=== PATIENT | female | born 1940 | race Caucasian/White ===

== ENCOUNTER 2025-03-21 13:00 | Outpatient (AMB) | payer MEDICARE, OTHER, SELFPAY ==
--- OUTSIDE RECORDS SUMMARY | 2025-03-18 20:32 | XMS_ITS | Encounter Summary ---
Author Organization [facility] Address [address] [place] [address] Phone Care Team Providers Care Chart Changer Name Role Phone Fabienne Villasenor CNP Primary Care Provider Reason for Referral * MRI/CAT Scan - Closed Specialty Diagnoses / Procedures Referred By Contac t Referred To Contact Radiology Diagnoses Chronic bilateral low back pain with bilateral sciatica Procedures MRI Lumbar Spine Fabienne Villasenor CNP 14 [facility] [address] [place] [address] Phone: tel: fax: [email or web address] Referral ID Status Reason Start Date Expiration Date Visits Re quested Visits Authorized [id number] Closed 03/11/2025 03/11/2026 1 1 Reason for Visit * MRI/CAT Scan - Closed Specialty Diagnoses / Procedures Referred By Contac t Referred To Contact Radiology Diagnoses Chronic bilateral low back pain with bilateral sciatica Procedures MRI Lumbar Spine Fabienne Villasenor CNP 14 [facility] [address] [place] [address] Phone: tel: fax: [email or web address] Referral ID Status Reason Start Date Expiration Date Visits Re quested Visits Authorized [id number] Closed 03/11/2025 03/11/2026 1 1 Encounter Details Date Type Department Care Team (Latest Contact Info) Description 03/18/2025 8:32 PM EDT - 03/18/2025 11:59 PM EDT Hospital Encounter [facility], [address] [address] Fabienne Villasenor, SOCIAL WORK ASSISTANT [facility] [address] [place] [address] [email or web address] g Arrived Discharge Disposition: Home or Self Care Social History Tobacco Use Types Packs/Day Years Used Date Smoking Tobacco: Former Cigarettes 1 1977 Smokeless Tobacco: Never Alcohol Use Standard Drinks/Week Comments Never 0 (1 standard drink = 0.6 oz pur e alcohol) Education Answer Date Recorded Are you interested in more education? Not on birgit e 09/30/2022 Are you concerned about learning? Not on file 09/30/2022 No 09/30/2022 No 09/30/2022 Food Answer Date Recorded Within the past 6 months we worried whether our food would run out before we got money to buy more. Never True 02/12/2025 Within the past 6 months the food we bought just didn't last and we didn't have enough money to get more. Never True Residential Stability Answer Date Recor ded What is your housing situation today? I have conrado sing 02/12/2025 How many times have you move d in the past 12 months? Zero (I did not move) 02/12/2025 Paying for Meds Answer Date Recorded Do you have trouble paying for medicines? No 02/12/2025 Paying Utility Bills Answer Date Record ed Do you have trouble paying your heating or elect ricity bill? No 02/12/2025 Transportation Answer Date Recorded Has the lack of transportati on kept you from medical appointments or from getting medications? No 02/12/2025 Digital Access Answer Date Recorded No 02/12/2025 Yes 02/12/2025 Do you have reliable internet access at home? Ye s 02/12/2025 Do you have a device (e.g., phone, tablet, computer) with a working camera? Yes 02/12/2025 Intimate Partner Violence Answer Date R ecorded Are you denied basic needs s uch as food, clothing, or medical care? No 02/12/2025 In the past 12 months have y ou been in a relationship with a person who hurts, threatens, or tries to control you? No 02/12/2025 Are you denied basic needs s uch as food, clothing, or medical care? No 02/12/2025 In the past 12 months have y ou been in a relationship with a person who hurts, threatens, or tries to control you? No 02/12/2025 Comments No Sex and Gender Information Value Date Recorded Sex Assigned at Female 07/12/2020 7:30 AM EST Legal Sex Female 3:15 PM EDT Gender Identity Female 07/12/2020 7:30 AM EST Sexual Orientation Not on file documented as of this encounter Medications at Time of Discharge acetaminophen (TYLENOL) 650 MG CR tablet Take 2 tablets by mouth 2 (two) times a day as needed for pain (specific location in comments). amoxicillin (AMOXIL) 500 MG capsule Take 2,000 mg by mouth once as needed (prior to dental procedure). atorvastatin (LIPITOR) 20 MG tabletIndications: Pure hypercholesterolem ia, unspecified TAKE 1 TABLET BY MOUTH EVERY DAY 90 tablet 1 02/11/2025 cephalexin (KEFLEX) 500 MG capsule Take 1 capsule (500 mg total) by mouth 2 (two) times a day for 5 days. 10 capsule 03/21/2025 cholecalciferol (VITAMIN D3) 2,000 unit capsule Take 2,000 Units by mouth every other day. lidocaine (LIDODERM) 5 %Indications:Chron ic bilateral thoracic back pain Place 1 patch onto the skin daily. Remove & Discard patch within 12 hours or as directed by 30 patch 02/18/2025 losartan-hydroCHLO ROthiazide (HYZAAR) 50-12.5 mg per tabletIndications: Essential hypertension Take 1 tablet in the morning and 1/2 tablet in the evening 180 tablet 3 06/12/2024 pantoprazole (PROTONIX) 40 MG tabletIndications: Gastroesophageal reflux disease TAKE 1 TABLET BY MOUTH EVERY DAY 90 tablet 1 02/11/2025 documented as of this encounter Plan of Treatment Upcoming Encounters Date Type Department Care Team (Loc araiza Contact Info) Description 04/09/2025 3:20 PM EST Office Visit [facility] [place] [facility] 14 [facility] [address] [place] [address] Fabienne Villasenor, SOCIAL WORK ASSISTANT [facility] [address] [place] [address] [email or web address] documented as of this encounter Procedures Procedure Name Priority Date/Time Associated Diagnosis Comments MRI LUMBAR SPINE (NEURO) WITHOUT CONTRAST Routine 03/18/2025 9:23 PM EDT Chronic bilateral low back pain with bilateral sciatica documented in this encounter Results * MRI LUMBAR SPINE (NEURO) WITHOUT CONTRAST (03/18/2025 9:23 PM EDT) Anatomical Region Laterality Modality L-spine Magnetic Resonan ce 03/20/2025 3:07 PM EDT Impressions 03/20/2025 3:20 PM EDT 1. Extensive degenerative disc disease and facet joint arthropathy at multiple levels, with canal stenosis, moderate at multiple levels, as discussed above. 2. Multilevel foramina stenosis, severe at multiple levels, as above. 3. Probable renal cysts. Narrative 03/20/2025 3:20 PM EDT MRI LUMBAR SPINE (NEURO) WITHOUT CONTRAST Referring clinician's provided indication for this examination in Epic: * Low back pain, > 6 wks; Chronic low back pain with bilateral sciatica. Hx of lumbar laminectomy in 2019. Chronic saddle anesthesia TECHNIQUE: MRI LUMBAR SPINE (NEURO) WITHOUT CONTRAST Multi-sequence, multi-planar MRI of the lumbar spine was performed without intravenous contrast. COMPARISON: Lumbar spine MRI June 09, 2021. FINDINGS: LUMBAR SPINE: Alignment and Vertebrae: There is straightening of the lumbar lordosis, stable. No compression fracture. Marrow: The bone marrow signal is heterogeneous. No worrisome marrow replacing lesion. Discs and Endplates: Loss of disc height and signal at every level from L1-L2 through L5-S1, most severe at L3-L4. There are Modic type II endplate changes at L3-L4, unchanged. There are also Modic type II endplate changes at L4-L5, also stable. Conus: The tip of the conus ends at L1. No compression. Soft Tissues: No prevertebral edema. Other Findings: Possibly small cyst in the left upper renal pole measuring 6 mm, not completely characterized in this exam. Additional T2 hyperintensity or possibly cyst on the right kidney measuring 1 cm. There is also cyst in the left kidney lower pole measuring 2.2 cm. Findings by level: T11-T12: Mild disc bulge. Mild spinal canal stenosis. No high-grade foraminal stenosis. T12-L1: Disc bulge and facet joint arthropathy. No high-grade spinal canal stenosis or significant foraminal stenosis. L1-L2: Disc bulge, lateralizing toward the right, right subarticular component, stable from previous exam. Facet hypertrophy. Mild to moderate spinal canal stenosis. Moderate right and lgqq-eb-cjyigjtz left foraminal stenosis. L2-L3: Disc bulge. Left central/subarticular disc protrusion. Additional right subarticular extrusion with mild cranial migration. Facet hypertrophy. Moderate spinal canal stenosis. Moderate left and mild to moderate right foraminal stenosis. L3-L4: Disc bulge. Left subarticular zone annulus fissure protrusion with osteophytic ridging. Facet hypertrophy. Moderate spinal canal stenosis. Moderate left and mild right foraminal stenosis. L4-L5: Disc osteophyte complex, lateralizing toward the right. Facet hypertrophy. Severe stenosis of the right subarticular zone with compression of the right transversing L5 nerve roots. Moderate spinal canal stenosis. Severe right and moderate left foraminal stenosis. L5-S1: Disc osteophyte complex. Central/right central disc fusion. There is severe encroachment of the subarticular zones and S1 nerve roots. Mild to moderate spinal canal stenosis. Severe bilateral foraminal stenosis. Procedure Note Hannah Villagomez MD - 03/20/2025 MRI LUMBAR SPINE (NEURO) WITHOUT CONTRAST Referring clinician's provided indication for this examination in Epic: *Low back pain, > 6 wks; Chronic low back pain with bilateral sciatica. Hxof lumbar laminectomy in 2019. Chronic saddle anesthesia TECHNIQUE: MRI LUMBAR SPINE (NEURO) WITHOUT CONTRAST Multi-sequence, multi-planar MRI of the lumbar spine was performed withoutintravenous contrast. COMPARISON: Lumbar spine MRI June 09, 2021. FINDINGS: LUMBAR SPINE: Alignment and Vertebrae: There is straightening of the lumbar lordosis,stable. No compression fracture. Marrow: The bone marrow signal is heterogeneous. No worrisome marrowreplacing lesion. Discs and Endplates: Loss of disc height and signal at every level fromL1-L2 through L5-S1, most severe at L3-L4. There are Modic type IIendplate changes at L3-L4, unchanged. There are also Modic type IIendplate changes at L4-L5, also stable. Conus: The tip of the conus ends at L1. No compression. Soft Tissues: No prevertebral edema. Other Findings: Possibly small cyst in the left upper renal pole measuring6 mm, not completely characterized in this exam. Additional [id number] or possibly cyst on the right kidney measuring 1 cm. Thereis also cyst in the left kidney lower pole measuring 2.2 cm. Findings by level: T11-T12: Mild disc bulge. Mild spinal canal stenosis. No high-gradeforaminal stenosis. T12-L1: Disc bulge and facet joint arthropathy. No high-grade spinal canalstenosis or significant foraminal stenosis. L1-L2: Disc bulge, lateralizing toward the right, right subarticularcomponent, stable from previous exam. Facet hypertrophy. Mild to moderatespinal canal stenosis. Moderate right and msan-uc-trglozgu left foraminalstenosis. L2-L3: Disc bulge. Left central/subarticular disc protrusion. Additionalright subarticular extrusion with mild cranial migration. Facethypertrophy. Moderate spinal canal stenosis. Moderate left and mild tomoderate right foraminal stenosis. L3-L4: Disc bulge. Left subarticular zone annulus fissure protrusion withosteophytic ridging. Facet hypertrophy. Moderate spinal canal stenosis.Moderate left and mild right foraminal stenosis. L4-L5: Disc osteophyte complex, lateralizing toward the right. Facethypertrophy. Severe stenosis of the right subarticular zone withcompression of the right transversing L5 nerve roots. Moderate spinalcanal stenosis. Severe right and moderate left foraminal stenosis. L5-S1: Disc osteophyte complex. Central/right central disc fusion. Thereis severe encroachment of the subarticular zones and S1 nerve roots. Mildto moderate spinal canal stenosis. Severe bilateral foraminal stenosis. IMPRESSION: 1. Extensive degenerative disc disease and facet joint arthropathy atmultiple levels, with canal stenosis, moderate at multiple levels, asdiscussed above. 2. Multilevel foramina stenosis, severe at multiple levels, as above. 3. Probable renal cysts. Fabienne Villasenor SOCIAL WORK ASSISTANT G MR XSPECIALTY Caron l Result documented in this encounter Visit Diagnoses Diagnosis Chronic bilateral low back pain with bilateral sciatica documented in this encounter Additional Health Concerns Assessment Noted Time PHQ-2 Depression Total Score: 0 07/03/19 25 1:10 PM EST documented as of this encounter Care Teams Chart Changer Relationship Specialty Start Date End Date Fabienne Villasenor CNP [address] [place] [id number] [email or web address] PCP - General Internal Medicine 10/16/18 documented as of this encounter Additional Source Comments The information contained in this document represents components of the legal health record. It is not the complete legal health record.[facility]
--- NOTE | 2025-03-21 13:03 | A.SPINEOV_ITS ---
Vital Signs 03/21/25 13:09 Height 5 ft 2 in Weight 167 lb BMI 30.5 Intake Visit Reasons: low back pain Intake Note: Ms. Fuller is here today c/o Low back pain. Alarm Field Technician Required: No Allergies Sulfa (Sulfonamide Antibiotics) Allergy (Unknown, Verified 03/21/25 13:11) Hallucinations Narcotics Allergy (Severe, Uncoded 03/21/25 13:11) Hallucinations Physical Exam Vital Signs: BMI result Body Mass Index 30.5 Assessment & Plan Assessment & Plan (1) Lumbar stenosis: Code(s): M48.061 - Spinal stenosis, lumbar region without neurogenic claudication Category: Medical Plan This is an 84-year-old female known to us from our previous practice at [facility] where she had a thoracic laminectomy for spinal cord compression and what I believe was a cyst we found at the time, who presents now with an altogether different issue. Earlier this year she slipped on ice and fell. She sustained a few injuries at that time, but 1 thing that is been persistently plaguing her has been a right-sided low back pain that goes into her right buttock, right sacral area and that will radiate down the back of her leg. She has a hard time localizing exactly which dermatomes. She will get tingling on the outer aspect of her foot on the right. She will get intermittent periods of footdrop as well. The pain is particularly bad if she is sitting for any length of time, she can not get comfortable. She will try to get up and move around, but it still will be uncomfortable. She is constantly changing positions. To this point she has had no dedicated conservative treatment other than tincture of time and Tylenol. She has done physical therapy on her back many times in the past with very limited success. She is not that all interested in going back and doing that again. No injections at this point yet either. She comes in today with an MRI done at [facility] showing severe nerve comp ression on the right at L4-5 and L5-S1. PMH: Patient reports history of GERD, high cholesterol, hypertension, left shoulder surgery, thoracic laminectomy, section, left hip replacement. Denies any significant cardiovascular disease, coagulopathies, strokes, liver or kidney disease etc.. Social hx: She has not smoke, drink use any recreational drugs Medications: Lipitor, pantoprazole, losartan, vitamin D3, Tylenol Allergies: Please see the CriticalBlue list Physical exam: Patient is uncomfortable, has an antalgic gait, mild weakness of her right tibialis which I would rate as 4-5. She has a well healed scar in her thoracic area. Reflexes absent at the patella bilaterally and the Achilles on the right Imaging review: Lumbar MRI done at [facility] reveals d egenerative scoliosis, she has a significantly overgrown right L4-5 facet complex with disc osteophyte causing severe narrowing of the right lateral recess, at L5-S1 she has broad-based disc bulge causing severe right L5 foraminal stenosis and right S1 compression in the lateral recess Impression: 84-year-old female known to us from our previous practice for thoracic laminectomy, presents now with a posttraumatic pain that is in her right side of her low back, right sacral area, right buttock area radiating down the back of her leg with intermittent tingling on the right side of her outer fo ot. The patient unfortunately has had no improvement over the last 6 or 7 months since the fall happened. She has been trying to wait this out, using Tylenol etc.. She has gone through physical therapy in the past for her back without any significant improvement, and she is very reluctant to put herself through that again out of fear that it will cause more pain like it has in the past. She can not take anti-inflammatories because of GI issues. The patient has severe compression on the right L4-5 and right L5-S1 lateral recess in addition to the right L5 foramen. I think that this is where her symptoms are coming from, especially in light of the intermittent footdrop that she is getting and the weakness I am seeing on exam in the tibialis region. I offered her the option of a cortisone shot as a means of trying to avoid surgery, but she is not all that interested in it. She would just like to get the problem fixed if we believe it is something that we can operate on. I think Dr. Mc would offer her decompression of these areas. I will review the films with him and get back to her with a final plan. We did briefly discuss what a lumbar decompression would be in terms of surgery risks, recovery and success rates etc.. Thank you for allowing us to care for your patient. The total time spent with this visit with this patient was 45 minutes reviewing history, physical exam, lumbar imaging review, and implementation of treatment plan or further diagnostic testing Pratik Mc MD,PhD [facility] Coding Level of Care Code New Pt Level 4 (12524) Diagnoses Lumbar stenosis M48.061
[2025-03-21 13:09] VITALS: BMI 30.5
--- OUTSIDE RECORDS SUMMARY | 2025-03-21 15:35 | XMS_ITS | Encounter Summary ---
Author Organization [facility] Address [address] [place] [address] Phone Care Team Providers Care Bell Captain Name Role Phone Fabienne Villasenor CNP Primary Care Provider Jasper Fairchild MD Unavailable [phone] Encounter Details Date Type Department Care Team ([facility] Contact Info) Description 04/29/2019 Procedure [facility], [facility] [address] [place] [address] Social History Tobacco Use Types Packs/Day Years Used Date Smoking Tobacco: Former Cigarettes Q uit: 1978 Smokeless Tobacco: Never Alcohol Use Standard Drinks/Week Comments Never 0 (1 standard drink = 0.6 oz pur e alcohol) Comments Unknown Sex and Gender Information Value Date Recorded Sex Assigned at Female 07/12/2020 7:30 AM EST Legal Sex Female 3:15 PM EDT Gender Identity Female 07/12/2020 7:30 AM EST Sexual Orientation Not on file documented as of this encounter Last Filed Vital Signs Vital Sign Reading Time Taken Comments Blood Pressure - - Pulse - - Temperature - - Respiratory Rate - - Oxygen Saturation - - Inhaled Oxygen Concentration - - Weight 73.9 kg (163 lb) 04/30/2019 12:51 PM EST Height 157.5 cm (5' 2 ) 04/30/2019 12:51 PM EST Body Mass Index 29.81 04/30/2019 12:51 PM EST documented in this encounter Plan of Treatment Upcoming Encounters Date Type Department Care Team ([facility] Contact Info) Description 04/09/2025 3:20 PM EST Office Visit [facility] [place] [facility] 14 [facility] [address] [place] [address] Fabienne Villasenor CNP 14 [facility] [address] [place] [address] [email or web address] documented as of this encounter Visit Diagnoses Not on filedocumented in this encounter Additional Health Concerns Infection Onset Date Last Indicated Resolved Time CoV-Exposed Comment:Recent close contact documented in the COVID-19 PCR/PRO order 03/05/2022 03/15/2022 03/16/2022 1:22 AM E DT CoV-Risk Comment:Per Ambulatory Triage Form 03/15/2022 03/16/202203/27 1:21 AM EDT CoV-Exposed Comment:Recent close contact documented in the COVID-19 Amb Triage Form 12/04/2023 12/08/2023 12/25/2023 1:21 AM E DT CoV-Risk Comment:Per Ambulatory Triage Form 12/08/2023 12/08/202312/18 1:22 AM EDT documented as of this encounter Care Teams Bell Captain Relationship Specialty Start Date End Date Fabienne Villasenor CNP [address] [address] PCP - General Internal Medicine 10/16/18 Jasper Fairchild MD [address] [address] Insurance Assigned Provider 09/09/23 06/10/24 documented as of this encounter Additional Source Comments The information contained in this document represents components of the legal health record. It is not the complete legal health record.[facility]
--- OUTSIDE RECORDS SUMMARY | 2025-03-21 15:35 | XMS_ITS | Encounter Summary ---
Author Organization [facility] Address [address] [place] [address] [place] [address] Phone Care Team Providers Care Product Support Sales Representative Name Role Phone Fabienne Villasenor CNP Primary Care Provider Jasper Fairchild MD Unavailable [phone] Encounter Details Date Type Department Care Team (Late Contact Info) Description 08/04/2021 Ancillary Orders [facility],Outside Imaging [address] [place] [address] System, Provider Not In, [place] [address] Social History Tobacco Use Types Packs/Day Years Used Date Smoking Tobacco: Former Cigarettes 1 20 859 - 3106 Smokeless Tobacco: Never Alcohol Use Standard Drinks/Week Comments Never 0 (1 standard drink = 0.6 oz pur e alcohol) Comments No Sex and Gender Information Value Date Recorded Sex Assigned at Female 07/12/2020 7:30 AM EST Legal Sex Female 3:15 PM EDT Gender Identity Female 07/12/2020 7:30 AM EST Sexual Orientation Not on file documented as of this encounter Plan of Treatment Upcoming Encounters Date Type Department Care Team (Late Contact Info) Description 04/09/2025 3:20 PM EST Office Visit [facility] Internal Medicine 14 [facility] [address] [place], [place] [phone] Fabienne Villasenor CNP 14 [facility] [address] [place] [address] [email or web address] documented as of this encounter Results * MRI Spine (Bone) Outside (No Interpretation) (07/30/2017 12:00 AM EST) Narrative SYSTEMGENERATED, DOCUMENTATION - 08/04/2021 6:52 AM EST This study is for PACS storage only and not for interpretation. us Provider Not In System PhD IMG OUTSIDE IMAGING W /OUT INTERPRETATION Final Result documented in this encounter Visit Diagnoses Not on filedocumented [...] Triage Form 12/08/2023 12/08/202312/18 1:22 AM EDT Assessment Noted Time PHQ-2 Depression Total Score: 0 06/16/19 1:01 PM EST documented as of this encounter Care Teams Product Support Sales Representative Relationship Specialty Start Date End Date Fabienne Villasenor CNP [address] [place] [address] [place] [address] [email or web address] PCP - General Internal Medicine 10/16/18 Jasper Fairchild MD [address] [place] [address] [place] [address] [email or web address] Insurance Assigned Provider 09/09/23 06/10/24 documented as of this encounter Additional Source Comments The information contained in this document represents components of the legal health record. It is not the complete legal health record.[facility]
--- OUTSIDE RECORDS SUMMARY | 2025-03-21 15:35 | XMS_ITS | Encounter Summary ---
Author Organization [facility] Address [address] [place] [address] Phone Care Team Providers Care Mold Preparer Name Role Phone Fabienne Villasenor CNP Primary Care Provider Jasper Fairchild MD Unavailable [phone] Encounter Details Date Type Department Care Team (Latest Contact Info) Description 07/23/2020 Transcribe Orders Virtual Department [address] [place] [address] Terrell Mccall MD [address] [place] [address], [place] [address] [email or web address] Malignant neoplasm of urinary bladder, unspecified site (Primary Dx) Social History Tobacco Use Types Packs/Day Years Used Date Smoking Tobacco: Former Cigarettes 1 24 06 475 - 3313 Smokeless Tobacco: Never Alcohol Use Standard Drinks/Week [...] Encounters Date Type Department Care Team (Late st Contact Info) Description 04/09/2025 3:20 PM EST Office Visit [facility] Internal Medicine 14 [facility] [address] [place] [address] Jacklyn Fabienne Carmichael, SHEETING PULLER 14 [facility] [address] [place] [address] [email or web address] documented as of this encounter Results * US Kidneys (07/27/2020 9:39 AM EST) Anatomical Region Laterality Modality Abdomen, Kidney Ultrasound 07/27/2020 9:36 AM EST Impressions 07/27/2020 9:46 AM EST No evidence of metastatic disease or hydronephrosis. Narrative 07/27/2020 9:46 AM EST COMPARISON: None. RENAL ULTRASOUND FINDINGS: Right Kidney: measures 11 x 5 cm. No hydronephrosis, masses or calculi. Cortical echogenicity and thickness are normal. No perinephric fluid collections. Left Kidney: measures 10 x 5 cm. No hydronephrosis, masses or calculi. Cortical echogenicity and thickness are normal. No perinephric fluid collections. Procedure Note Lino Atkinson MD - 07/27/2020 COMPARISON: None. RENAL ULTRASOUND FINDINGS: Right Kidney: measures 11 x 5 cm. No hydronephrosis, masses or calculi.Cortical echogenicity and thickness are normal. No perinephric fluidcollections. Left Kidney: measures 10 x 5 cm. No hydronephrosis, masses or calculi.Cortical echogenicity and thickness are normal. No perinephric fluidcollections. IMPRESSION: No evidence of metastatic disease or hydronephrosis. Terrell Mccall MD [facility] RENAL Final Result documented in this encounter Visit Diagnoses Diagnosis Malignant neoplasm of urinary bladder, unspecified site- Primary Malignant neoplasm of urinary bladder, unspecified site documented in this encounter Additional Health Concerns Infection [...] documented as of this encounter Care Teams Mold Preparer Relationship Specialty Start Date End Date Fabienne Villasenor CNP 14 [facility] [address] [place] [address] [email or web address] PCP - General Internal Medicine 10/16/18 Jasper Fairchild MD 14 [facility] [address] [place] [address] [email or web address] Insurance Assigned Provider 09/09/23 06/10/24 documented as of this encounter Additional Source Comments The information contained in this document represents components of the legal health record. It is not the complete legal health record.[facility]
--- OUTSIDE RECORDS SUMMARY | 2025-03-21 15:35 | XMS_ITS | Encounter Summary ---
Author Organization [facility] Address [address] [place] [address] Phone Care Team Providers Care Dairy Consultant Name Role Phone Fabienne Villasenor CNP Primary Care Provider Jasper Fairchild MD Unavailable [phone] Encounter Details Date Type Department Care Team (Late Contact Info) Description 07/02/2022 Ancillary Orders [facility] Internal Medicine [address] [address] Fabienne Villasenor CNP [address] [address] [email or web address] Bilateral hip pain Social History Tobacco Use Types Packs/Day Years Used Date Smoking Tobacco: Former Cigarettes 1 24 06 058 - 9344 Smokeless Tobacco: Never Alcohol Use Standard Drinks/Week [...] Upcoming Encounters Date Type Department Care Team ([facility] Contact Info) Description 04/09/2025 3:20 PM EST Office Visit [facility] Internal Medicine 14 [facility] [address] [place] [address] Fabienne Villasenor, PHOTO LAB SPECIALIST 14 [facility] [address] [place] [address] [email or web address] documented as of this encounter Results * XR HIPS 2+ VW EA BILAT PLUS PELVIS (07/02/2022 11:15 AM EST) Anatomical Region Laterality Modality Hip, Pelvis Computed Radiogr aphy 07/02/2022 11:5 1 PM EST Impressions 07/02/2022 11:54 PM EST Moderate left hip osteoarthritis, progressed from 2020. Mild to moderate right hip joint space narrowing, similar to 2020. Narrative 07/02/2022 11:54 PM EST XR HIPS 2+ VW EA BILAT PLUS PELVIS, XR SACROILIAC JOINTS 3 OR MORE VIEWS COMPARISON: XR HIP 2 VW LEFT PLUS PELVIS ; CT ABDOMEN/PELVIS WITH CONTRAST (accession [id number]), XR HIP 2 VW LEFT PLUS PELVIS (accession [id number]) FINDINGS: PELVIS: Pelvic ring intact. No displaced fracture. Degenerative changes in the lower lumbar spine, sacroiliac joints, and pubic symphysis. Constipation. Dedicated views of the sacroiliac joints reveal mild bony proliferative change on the left. No convincing osseous erosions RIGHT HIP: Mild to moderate right hip joint space narrowing, particularly medially and posteriorly. LEFT HIP: Moderate joint space narrowing with subchondral sclerosis and bony proliferative change. Procedure Note Teodora Gonzalez MD - 07/02/2022 XR HIPS 2+ VW EA BILAT PLUS PELVIS, XR SACROILIAC JOINTS 3 OR MORE VIEWS COMPARISON: XR HIP 2 VW LEFT PLUS PELVIS ; CT ABDOMEN/PELVISWITH CONTRAST (accession [id number]), XR HIP 2 VW LEFT PLUSPELVIS (accession [id number]) FINDINGS: PELVIS: Pelvic ring intact. No displaced fracture. Degenerative changes inthe lower lumbar spine, sacroiliac joints, and pubic symphysis.Constipation. Dedicated views of the sacroiliac joints reveal mild bonyproliferative change on the left. No convincing osseous erosions RIGHT HIP: Mild to moderate right hip joint space narrowing, particularlymedially and posteriorly. LEFT HIP: Moderate joint space narrowing with subchondral sclerosis andbony proliferative change. IMPRESSION: Moderate left hip osteoarthritis, progressed from 2020. Mild to moderate right hip joint space narrowing, similar to 2020. Fabienne Villasenor PHOTO LAB SPECIALIST IMG XR PELVIS Final Result documented in this encounter Visit Diagnoses Diagnosis Bilateral hip pain Pain in joint, pelvic region and thigh Bilateral hip pain Pain in joint, pelvic region and thigh documented in this encounter Additional Health Concerns Infection Onset Date Last Indicated Resolved Time CoV-Exposed Comment:Recent close contact documented in the COVID-19 Amb Triage Form 12/04/2023 12/08/2023 12/25/2023 1:21 AM E DT CoV-Risk Comment:Per Ambulatory Triage Form 12/08/2023 12/08/202312/18 1:22 AM EDT Assessment Noted Time PHQ-2 Depression Total Score: 0 06/19/19 23 4:39 PM EST documented as of this encounter Care Teams Dairy Consultant Relationship Specialty Start Date End Date Fabienne Villasenor, ANTONIO [address] [place] [address] [place] [address] PCP - General Internal Medicine 10/16/18 Jasper Fairchild MD [address] [place] [address] [place] [address] Insurance Assigned Provider 09/09/23 06/10/24 documented as of this encounter Additional Source Comments The information contained in this document represents components of the legal health record. It is not the complete legal health record.[facility]
--- OUTSIDE RECORDS SUMMARY | 2025-03-21 15:35 | XMS_ITS | Encounter Summary ---
Author Organization [facility] Address [address] [place] [address] [place] [address] Phone Care Team Providers Care Installation Technician Name Role Phone Fabienne Villasenor ANTONIO Primary Care Provider Encounter Details Date Type Department Care Team ([facility] st Contact Info) Description 03/11/2025 Procedure Pass [facility], [facility] [place] [address] [place] [address] Social History Tobacco Use Types Packs/Day Years Used Date Smoking Tobacco: Former Cigarettes 1 24 06 [id number] Smokeless Tobacco: Never Alcohol Use Standard Drinks/Week [...] 04/09/2025 3:20 PM EST Office Visit [facility] Internal Medicine 14 [facility] [address] [place] [address] Fabienne Villasenor CNP 14 [facility] [address] [place] [address] documented as of this encounter Visit Diagnoses Not on filedocumented in this encounter Additional Health Concerns Assessment Noted Time PHQ-2 Depression Total Score: 0 07/03/19 25 1:10 PM EST documented as of this encounter Care Teams Installation Technician Relationship Specialty Start Date End Date Fabienne Villasenor CNP [address] [place] [address] [address] [place] [address] [email or web address] PCP - General Internal Medicine 10/16/18 documented as of this encounter Additional Source Comments The information contained in this document represents components of the legal health record. It is not the complete legal health record.[facility]
--- OUTSIDE RECORDS SUMMARY | 2025-03-21 15:35 | XMS_ITS | Encounter Summary ---
Author Organization [facility] Address [address] [place] [address] Phone Care Team Providers Care Integration Manager Name Role Phone Fabienne Villasenor CNP Primary Care Provider Jasper Fairchild MD Unavailable [phone] Reason for Referral * MRI/CAT Scan - Closed Specialty Diagnoses / Procedures Referred By Roberta du Referred To Contact Radiology Diagnoses Sprain of left ankle, unspecified ligament, initial encounter Procedures MRI Ankle (Left) Bairon Trevino DO [email or web address] Referral ID Status Reason Start Date Expiration Date Visits Re quested Visits Authorized [id number] Closed 04/29/2019 04/28/2020 1 1 Encounter Details Date Type Department Care Team (Latest Contact Info) Description 04/29/2019 Transcribe Orders Virtual Department 30 [place] [address] Bairon Trevino DO [email or web address] Sprain of left ankle, unspecified ligament, initial encounter (Primary Dx) Social History Tobacco Use Types Packs/Day Years Used Date Smoking Tobacco: Former Cigarettes Q uit: 1977 Smokeless Tobacco: Never Alcohol Use Standard [...] Description 04/09/2025 3:20 PM EST Office Visit [facility] Internal Medicine 14 [facility] [address] [place] [address] Fabienne Villasenor, DIRECTOR OF RECREATION THERAPY 14 [facility] [address] [place] [address] documented as of this encounter Results * MRI ANKLE WITHOUT CONTRAST (LEFT) (05/12/2019 8:42 AM EST) Anatomical Region Laterality Modality Ankle Left Magnetic Resonan ce 05/12/2019 3:32 PM EST Impressions 05/12/2019 3:58 PM EST Mild edema surrounding the peroneal tendons and focal thickening and abnormal signal in the peroneus longus distally suggesting partial intrasubstance tear. No other ankle pathology is apparent. POS - [id number] Narrative 05/12/2019 3:58 PM EST TECHNIQUE: Exam performed on a 1.5 Yanely high-field MRI scanner. Axial T1, T2 and STIR; coronal proton density with fat suppression, sagittal T1 and STIR sequences were obtained. No comparison FINDINGS: No marrow edema to suggest bony trauma, tumor or infection. The mortise is not widened. The major ligaments seem intact to the extent they can be visualized. There is focal edema around the peroneus longus and brevis tendons peripheral to the lateral malleolus and the peroneal longus tendon appears to thicken with internal fraying or splitting as it rounds the undersurface of the calcaneus suggesting partial tearing. The peroneus brevis tendon seems intact as do the anterior, posterior and medial tendons. No soft tissue masses or fluid collections. Procedure Note Odilon Nelson MD - 05/12/2019 TECHNIQUE: Exam performed on a 1.5 Yanely high-field MRI scanner. AxialT1, T2 and STIR; coronal proton density with fat suppression, sagittal T1and STIR sequences were obtained. No comparison FINDINGS: No marrow edema to suggest bony trauma, tumor or infection. The mortise is not widened. The major ligaments seem intact to the extent they can be visualized. There is focal edema around the peroneus longus and brevis tendonsperipheral to the lateral malleolus and the peroneal longus tendon appearsto thicken with internal fraying or splitting as it rounds theundersurface of the calcaneus suggesting partial tearing. The peroneus brevis tendon seems intact as do the anterior, posterior andmedial tendons. No soft tissue masses or fluid collections. IMPRESSION: Mild edema surrounding the peroneal tendons and focal thickening andabnormal signal in the peroneus longus distally suggesting partialintrasubstance tear. No other ankle pathology is apparent. POS - [id number] Bairon Trevino DO IM MR EXTREMITY Caron l Result documented in this encounter Visit Diagnoses Diagnosis Sprain of left ankle, unspecified ligament, initial encounter- Primary Sprain of left ankle, unspecified ligament, initial encounter documented in this encounter Additional Health Concerns [...] documented as of this encounter Care Teams Integration Manager Relationship Specialty Start Date End Date Fabienne Villasenor CNP [address] [place] [address] [email or web address] PCP - General Internal Medicine 10/16/18 Jasper Fairchild MD [address] [place] [address] [address] [place] [address] [email or web address] Insurance Assigned Provider 09/09/23 06/10/24 documented as of this encounter Additional Source Comments The information contained in this document represents components of the legal health record. It is not the complete legal health record.[facility]
--- OUTSIDE RECORDS SUMMARY | 2025-03-21 15:35 | XMS_ITS | Encounter Summary ---
Author Organization [facility] Address [address] [place] [address] [place] [address] Phone Care Team Providers Care Administrative Hearing Officer Name Role Phone Fabienne Villasenor CNP Primary Care Provider Jasper Fairchild MD Unavailable [phone] Encounter Details Date Type Department Care Team (Late Contact Info) Description 05/21/2021 Procedure Pass [facility], [address] [address] Social History Tobacco Use Types Packs/Day Years Used Date Smoking Tobacco: Former Cigarettes 1 24 06 879 1977 Smokeless Tobacco: Never Alcohol Use Standard [...] Description 04/09/2025 3:20 PM EST Office Visit [facility] Internal Medicine 14 [facility] [address] [place], [place] [phone] Fabienne Villasenor CNP 14 [facility] [address] [place], [place] [phone] documented as of this encounter Visit Diagnoses [...] documented as of this encounter Care Teams Administrative Hearing Officer Relationship Specialty Start Date End Date Fabienne Villasenor CNP 14 [facility] [address] [place] [address] [email or web address] PCP - General Internal Medicine 10/16/18 Jasper Fairchild MD 14 [facility] [address] [place] [address] [email or web address] Insurance Assigned Provider 09/09/23 06/10/24 documented as of this encounter Additional Source Comments The information contained in this document represents components of the legal health record. It is not the complete legal health record.[facility]
--- OUTSIDE RECORDS SUMMARY | 2025-03-21 15:35 | XMS_ITS | Encounter Summary ---
Author Organization [facility] Address [address] [place] [address] Phone Care Team Providers Care Benefits Specialist Recruiter Name Role Phone Fabienne Villasenor CNP Primary Care Provider Jasper Fairchild MD Unavailable [phone] Reason for Referral * MRI/CAT Scan - Closed Specialty Diagnoses / Procedures Referred By Contac t Referred To Contact Radiology Diagnoses Neck stiffness Weakness Tingling Procedures MRI Cervical Spine Bairon Trevino DO [email or web address] Referral ID Status Reason Start Date Expiration Date Visits Re quested Visits Authorized [id number] Closed 07/18/2019 07/17/2020 1 1 * MRI/CAT Scan - Closed Specialty Diagnoses / Procedures Referred By Contac t Referred To Contact Radiology Diagnoses Tendonosis Procedures MRI Shoulder (Right) Bairon Trevino DO [email or web address] Referral ID Status Reason Start Date Expiration Date Visits Re quested Visits Authorized [id number] Closed 07/18/2019 07/17/2020 1 1 Encounter Details Date Type Department Care Team (Latest Contact Info) Description 07/18/2019 Transcribe Orders [facility] Department [address] [place] [address] Bairon Trevino DO [email or web address] Tingling (Primary Dx); Tendonosis; Neck stiffness; Weakness Social History Tobacco Use Types Packs/Day Years [...] Description 04/09/2025 3:20 PM EST Office Visit [facility] [place] [facility] 14 [facility] [address] [place] [address] Fabienne Villasenor, SUPERVISOR [employer] 14 [facility] [address] [place] [address] [email or web address] documented as of this encounter Results * MRI SHOULDER WITHOUT CONTRAST (RIGHT) (07/27/2019 12:50 PM EST) Anatomical Region Laterality Modality Shoulder Right Magnetic Resonan ce 07/27/2019 9:10 PM EST Impressions 07/29/2019 10:27 AM EST 1. Moderate tendinopathy of the supraspinatus tendon with focal full-thickness tear. 2. Moderate tendinopathy of the infraspinatus with linear intrasubstance tears. 3. Moderate tendinopathy of the intra-articular portion of the biceps tendon with superimposed partial tear. 4. 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 POS - [id number] Narrative 07/29/2019 10:27 AM EST EXAM: MRI SHOULDER WITHOUT CONTRAST (RIGHT) COMPARISON: None TECHNIQUE: Exam performed on a 1.5 Yanely high-field MRI scanner. Axial T1 and proton density with fat suppression, oblique coronal proton density with fat suppression and T2 with fat suppression, oblique sagittal T1 and T2 with fat suppression sequences were obtained. MRI SHOULDER FINDINGS: Motion degrades some of the images. ROTATOR cuff: -Supraspinatus: Decreased bulk . Moderate tendinopathy of the supraspinatus tendon with focal full-thickness tear near the attachment (sagittal 7:13). -Infraspinatus: Normal in bulk. Moderate tendinopathy and at least two foci of linear intrasubstance tears (7:14, 7:15). -Teres minor: Normal in bulk. No tendinopathy. -Subscapularis: Normal in bulk. Moderate tendinopathy. Long head of Biceps tendon: Moderate tendinopathy of the intra-articular portion of the biceps tendon, with superimposed partial tear (coronal 5:7, 5:6). The tendon is located in the bicipital groove. 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 The undersurface of the acromion is flat. Mild impingement in the subjacent supraspinatus tendon. Subacromial subdeltoid bursa: There is small amount of fluid in the subacromial subdeltoid bursa. Glenohumeral joint: The joint articulation is preserved. Thinning of the articular cartilage and narrowing of the joint space. Glenoid labrum: Deformity of the labrum suggestive of chronic tear.. Bones and soft tissues: No marrow edema to suggest fractures. Overlying soft tissues are unremarkable. Procedure Note Yassine Castillo MD - 07/29/2019 EXAM: MRI SHOULDER WITHOUT CONTRAST (RIGHT) COMPARISON: None TECHNIQUE: Exam performed on a 1.5 Yanely high-field MRI scanner. Axial T1and proton density with fat suppression, oblique coronal proton densitywith fat suppression and T2 with fat suppression, oblique sagittal T1 andT2 with fat suppression sequences were obtained. MRI SHOULDER FINDINGS: Motion degrades some of the images. ROTATOR cuff: -Supraspinatus: Decreased bulk . Moderate tendinopathy of thesupraspinatus tendon with focal full-thickness tear near the attachment(sagittal 7:13). -Infraspinatus: Normal in bulk. Moderate tendinopathy and at least twofoci of linear intrasubstance tears (7:14, 7:15). -Teres minor: Normal in bulk. No tendinopathy. -Subscapularis: Normal in bulk. Moderate tendinopathy. Long head of Biceps tendon: Moderate tendinopathy of the intra-articularportion of the biceps tendon, with superimposed partial tear (coronal 5:7,5:6). The tendon is located in the bicipital groove. Acromioclavicular joint: Moderate osteoarthritis involving theacromioclavicular joint with subchondral cystic changes, mild edema aroundthe joint space and marginal osteophytes. The undersurface of the acromionis flat. Mild impingement in the subjacent supraspinatus tendon. Subacromial subdeltoid bursa: There is small amount of fluid in thesubacromial subdeltoid bursa. Glenohumeral joint: The joint articulation is preserved. Thinning of thearticular cartilage and narrowing of the joint space. Glenoid labrum: Deformity of the labrum suggestive of chronic tear.. Bones and soft tissues: No marrow edema to suggest fractures. Overlyingsoft tissues are unremarkable. IMPRESSION: 1. Moderate tendinopathy of the supraspinatus tendon with focalfull-thickness tear. 2. Moderate tendinopathy of the infraspinatus with linear intrasubstancetears. 3. Moderate tendinopathy of the intra-articular portion of the bicepstendon with superimposed partial tear. 4. Moderate osteoarthritic changes of the acromioclavicular jointcontributes to impingement over the subjacent supraspinatus tendon. POS - [id number] us Bairon Trevino DO IMG MR EXTREMITY Caron l Result * MRI CERVICAL SPINE (BONE) WITHOUT CONTRAST (07/27/2019 12:27 PM EST) Anatomical Region Laterality Modality C-spine Magnetic Resonan ce 07/27/2019 7:38 PM EST Impressions 07/27/2019 7:50 PM EST Multilevel degenerative changes as described above. Moderate canal stenosis at C5-C6 and C6-C7. Moderate neuroforaminal stenosis bilaterally at C3-C4, C4-C5, C5-C6 and C6-C7. POS - [id number] Narrative 07/27/2019 7:50 PM EST EXAM: MRI CERVICAL SPINE (BONE) WITHOUT INTRAVENOUS CONTRAST COMPARISON: None TECHNIQUE: Exam performed on a 1.5 Yanely high-field MRI scanner. Sagittal T1, T2 and STIR, axial T2* gradient echo and 3-D bright fluid sequences were obtained. HISTORY: NECK STIFFNESS, WEAKNESS , TINGLING , CLICKING, AROM ROTATION B/L ARMS L>R FINDINGS: ALIGNMENT: Reversal of the normal cervical lordosis. No anterior or posterior subluxations. VERTEBRAL BODIES: Vertebral body heights are maintained. Bone marrow signal pattern is within normal limits. INTERVERTEBRAL DISCS: Normal height and signal intensity. POSTERIOR FOSSA/SPINAL CORD: Posterior fossa structures are unremarkable. Cervicomedullary junction is within normal limits. Included spinal cord has normal caliber and signal characteristics. Short pedicles contribute to neuroforaminal narrowing of the cervical spine. Level by level analysis yields the following: C2-C3: No significant canal stenosis. Mild bilateral neuroforaminal narrowing. C3-C4: Facet arthropathy contributes to moderate bilateral neuroforaminal stenosis, worse on the right side. Mild canal stenosis. C4-C5: Facet arthropathy contributes to moderate bilateral neuroforaminal stenosis. Mild/moderate canal stenosis. C5-C6: Disc osteophyte complex and facet arthropathy contributes to moderate canal stenosis and moderate bilateral neuroforaminal stenosis. C6-C7: Disc osteophyte complex and facet arthropathy contributes to moderate bilateral neuroforaminal stenosis and moderate canal stenosis. C7-T1: No significant canal or neuroforaminal stenosis. OTHERS:Prevertebral and posterior paraspinal soft tissues are unremarkable. Procedure Note Yassine Castillo MD - 07/27/2019 EXAM: MRI CERVICAL SPINE (BONE) WITHOUT INTRAVENOUS CONTRAST COMPARISON: None TECHNIQUE: Exam performed on a 1.5 Yanely high-field MRI scanner.Sagittal T1, T2 and STIR, axial T2* gradient echo and 3-D bright fluidsequences were obtained. HISTORY: NECK STIFFNESS, WEAKNESS , TINGLING , CLICKING, AROM ROTATION B/LARMS L>R FINDINGS: ALIGNMENT: Reversal of the normal cervical lordosis. No anterior orposterior subluxations. VERTEBRAL BODIES: Vertebral body heights are maintained. Bone marrowsignal pattern is within normal limits. INTERVERTEBRAL DISCS: Normal height and signal intensity. POSTERIOR FOSSA/SPINAL CORD: Posterior fossa structures are unremarkable.Cervicomedullary junction is within normal limits. Included spinal cordhas normal caliber and signal characteristics. Short pedicles contribute to neuroforaminal narrowing of the cervicalspine. Level by level analysis yields the following: C2-C3: No significant canal stenosis. Mild bilateral neuroforaminalnarrowing. C3-C4: Facet arthropathy contributes to moderate bilateral neuroforaminalstenosis, worse on the right side. Mild canal stenosis. C4-C5: Facet arthropathy contributes to moderate bilateral neuroforaminalstenosis. Mild/moderate canal stenosis. C5-C6: Disc osteophyte complex and facet arthropathy contributes tomoderate canal stenosis and moderate bilateral neuroforaminal stenosis. C6-C7: Disc osteophyte complex and facet arthropathy contributes tomoderate bilateral neuroforaminal stenosis and moderate canal stenosis. C7-T1: No significant canal or neuroforaminal stenosis. OTHERS:Prevertebral and posterior paraspinal soft tissues areunremarkable. IMPRESSION: Multilevel degenerative changes as described above. Moderate canalstenosis at C5-C6 and C6-C7. Moderate neuroforaminal stenosis bilaterallyat C3-C4, C4-C5, C5-C6 and C6-C7. POS - [id number] Bairon Trevino DO [facility] MR XSPECIALTY Fin al Result documented in this encounter Visit Diagnoses Diagnosis Tingling- Primary Disturbance of skin sensation Tendonosis Neck stiffness Torticollis, unspecified Weakness Other malaise and fatigue Neck stiffness Torticollis, unspecified Weakness Other malaise and fatigue Tingling Disturbance of skin sensation Tendonosis documented in this encounter Additional Health Concerns [...] documented as of this encounter Care Teams Benefits Specialist Recruiter Relationship Specialty Start Date End Date Fabienne Villasenor CNP 14 [facility] [address] [place] [address] [email or web address] PCP - General Internal Medicine 10/16/18 Jasper Fairchild MD 14 [facility] [address] [place] [address] [email or web address] Insurance Assigned Provider 09/09/23 06/10/24 documented as of this encounter Additional Source Comments The information contained in this document represents components of the legal health record. It is not the complete legal health record.[facility]
--- OUTSIDE RECORDS SUMMARY | 2025-03-21 15:35 | XMS_ITS | Encounter Summary ---
Author Organization [facility] Address [address] [place] [address] Phone Care Team Providers Care Barrel Rifler Operator Name Role Phone Fabienne Villasenor CNP Primary Care Provider Jasper Fairchild MD Unavailable [phone] Encounter Details Date Type Department Care Team (Late Contact Info) Description 07/16/2021 Procedure Pass [facility], [address] [address] Social History Tobacco Use Types Packs/Day Years [...] Description 04/09/2025 3:20 PM EST Office Visit [facility] Internal Medicine 14 [facility] [address] [place], [place] [phone] Fabienne Villasenor CNP 14 [facility] [address] [place], [place] [phone] documented as of this encounter Visit Diagnoses [...] documented as of this encounter Care Teams Barrel Rifler Operator Relationship Specialty Start Date End Date Fabienne Villasenor CNP [address] [place] [address] [place] [address] [email or web address] PCP - General Internal Medicine 10/16/18 Jasper Fairchild MD [address] [place] [address] [place] [address] Insurance Assigned Provider 09/09/23 06/10/24 documented as of this encounter Additional Source Comments The information contained in this document represents components of the legal health record. It is not the complete legal health record.[facility]
--- OUTSIDE RECORDS SUMMARY | 2025-03-21 15:35 | XMS_ITS | Encounter Summary ---
Author Organization [facility] Address [address] [place] [address] Phone Care Team Providers Care Weigher And Mixer Name Role Phone Fabienne Villasenor CNP Primary Care Provider Jasper Fairchild MD Unavailable [phone] Encounter Details Date Type Department Care Team (Late Contact Info) Description 07/29/2020 Procedure Pass [place] Admitting Dept - Virtual Department [address] [place] [address] Social History Tobacco Use Types Packs/Day Years Used Date Smoking Tobacco: Former Cigarettes 1 24 06 [id number] Smokeless Tobacco: Never Alcohol Use Standard Drinks/Week [...] 04/09/2025 3:20 PM EST Office Visit [facility] [place] [facility] 14 [facility] [address] [place], [place] [phone] Fabienne Villasenor CNP 14 [facility] [address] [place] [address] documented as of this encounter Visit Diagnoses [...] documented as of this encounter Care Teams Weigher And Mixer Relationship Specialty Start Date End Date Fabienne Villasenor CNP 14 [facility] [address] [place] [address] [email or web address] PCP - General Internal Medicine 10/16/18 Jasper Fairchild MD 14 [facility] [address] [place] [address] [email or web address] Insurance Assigned Provider 09/09/23 06/10/24 documented as of this encounter Additional Source Comments The information contained in this document represents components of the legal health record. It is not the complete legal health record.[facility]
--- OUTSIDE RECORDS SUMMARY | 2025-03-21 15:35 | XMS_ITS | Encounter Summary ---
Author Organization [facility] Address [address] [place] [address] [place] [address] Phone Care Team Providers Care Contact Officer Name Role Phone Fabienne Villasenor CNP Primary Care Provider Jasper Fairchild MD Unavailable [phone] Encounter Details Date Type Department Care Team (Late Contact Info) Description 04/08/2020 Ancillary Orders [facility],Outside Imaging [address] [place] [address] System, Provider Not In, [place] [address] Social History Tobacco Use Types Packs/Day Years Used Date Smoking Tobacco: Former Cigarettes 1 20 497 - 6109 Smokeless Tobacco: Never Alcohol Use Standard Drinks/Week [...] Description 04/09/2025 3:20 PM EST Office Visit [facility] Internal Medicine 14 [facility] [address] [place], [place] [phone] Fabienne Villasenor CNP 14 [facility] [address] [place], [place] [phone] [email or web address] documented as of this encounter Results * Mammogram Outside (No Interpretation) (08/01/2017 12:00 AM EST) Narrative SYSTEMGENERATED, DOCUMENTATION - 04/08/2020 12:34 PM EST This study is for PACS storage [...] documented as of this encounter Care Teams Contact Officer Relationship Specialty Start Date End Date Fabienne Villasenor CNP [address] [place] [address] [address] [place] [address] [email or web address] PCP - General Internal Medicine 10/16/18 Jasper Fairchild MD [address] [place] [address] [address] [place] [address] Insurance Assigned Provider 09/09/23 06/10/24 documented as of this encounter Additional Source Comments The information contained in this document represents components of the legal health record. It is not the complete legal health record.[facility]
--- OUTSIDE RECORDS SUMMARY | 2025-03-21 15:35 | XMS_ITS | Encounter Summary ---
Author Organization [facility] Address [address] [facility] [address] [place] [address] Phone Care Team Providers Care Software Engineering Supervisor Name Role Phone Fabienne Villasenor CNP Primary Care Provider Jasper Fairchild MD Unavailable [phone] Reason for Referral * MRI/CAT Scan - Closed Specialty Diagnoses / Procedures Referred By Contac t Referred To Contact Radiology Diagnoses Mid back pain History of spinal cord compression Procedures MRI Thoracic Spine Lawrence Mc MD Phone: tel: fax: Referral ID Status Reason Start Date Expiration Date Visits Re quested Visits Authorized [id number] Closed 07/16/2021 07/16/2022 1 1 Encounter Details Date Type Department Care Team (Late st Contact Info) Description 07/16/2021 Transcribe Orders Virtual Department [address] [place] [address] Lawrence Mc MD [address] [facility] [address] [place] [address] Mid back pain (Primary Dx); History of spinal cord compression Social History Tobacco Use Types Packs/Day Years Used Date Smoking Tobacco: Former Cigarettes 1 20 1 9 - 1977 Smokeless Tobacco: Never Alcohol Use Standard [...] Description 04/09/2025 3:20 PM EST Office Visit [facility] Internal Medicine 14 [facility] [address] [place] [address] PheFabienne simeon, OFFICE SERVICES COORDINATOR 14 [facility] [address] [place] [address] [email or web address] documented as of this encounter Results * MRI THORACIC SPINE (BONE) WITH AND WITHOUT CONTRAST (08/06/2021 12:01 PM EST) Anatomical Region Laterality Modality T-spine Magnetic Resonan ce 08/06/2021 12:2 7 PM EST Impressions 08/06/2021 1:01 PM EST 1.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 2.No abnormal cord enhancement. 3.Previously suggested calcified lesion at T10-T11 is no longer seen, however, local degenerative changes contributes to moderate spinal canal stenosis. 4.No severe foraminal or spinal canal stenosis. Narrative 08/06/2021 1:01 PM EST MRI THORACIC SPINE (BONE) WITH AND WITHOUT CONTRAST TECHNIQUE: Multi-sequence, multi-planar MRI of the thoracic spine was performed with and without intravenous contrast. Skin marker placed in the area of the patient's surgical scar. COMPARISON: Previous thoracic spine MRI on June 10, 2014 FINDINGS: THORACIC SPINE: Alignment and Vertebrae: Normal alignment. No compression fracture. Marrow: Focal degenerative endplate changes at T8-T9, similar to 2015 Discs and Endplates: Desiccation changes of all discs. No significant loss of disc height. Spinal Cord: Focal spinal cord atrophy associated with abnormal T2 signal at T10-T11. Contrast: No abnormal enhancement. Soft Tissue: No prevertebral edema. Focal postsurgical changes at T9-T11 posterior paraspinal soft tissues. Other Findings: Central disc protrusion at T7-T8 is minimally more prominent than 2015. Mild central disc protrusion at T8-T9, similar to 2015. Mild bulging disc and prominent bilateral facet arthropathy at T9-T10 contributes to mild spinal canal stenosis, similar to 2015. Minimal bulging disc at T10-T11 and prominent facet arthropathy (note that the previously suggested calcified lesion seen 2014 is no longer well seen) contributes to moderate spinal canal stenosis and mild bilateral foraminal stenosis. Procedure Note Yassine Castillo MD - 08/06/2021 MRI THORACIC SPINE (BONE) WITH AND WITHOUT CONTRAST TECHNIQUE: Multi-sequence, multi-planar MRI of the thoracic spine was performed withand without intravenous contrast. Skin marker placed in the area of thepatient's surgical scar. COMPARISON: Previous thoracic spine MRI on June 10, 2014 FINDINGS: THORACIC SPINE: Alignment and Vertebrae: Normal alignment. No compression fracture. Marrow: Focal degenerative endplate changes at T8-T9, similar to 2015 Discs and Endplates: Desiccation changes of all discs. No significant lossof disc height. Spinal Cord: Focal spinal cord atrophy associated with abnormal T2 signalat T10- T11. Contrast: No abnormal enhancement. Soft Tissue: No prevertebral edema. Focal postsurgical changes at T9- [id number] paraspinal soft tissues. Other Findings: Central disc protrusion at T7-T8 is minimally moreprominent than 2015. Mild central disc protrusion at T8-T9, similar [id number]. Mild bulging disc and prominent bilateral facet arthropathy atT9-T10 contributes to mild spinal canal stenosis, similar to 2015. Minimalbulging disc at T10-T11 and prominent facet arthropathy (note that thepreviously suggested calcified lesion seen 2014 is no longer well seen)contributes to moderate spinal canal stenosis and mild bilateral foraminalstenosis. 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 2.No abnormal cord enhancement. 3.Previously suggested calcified lesion at T10-T11 is no longer seen,however, local degenerative changes contributes to moderate spinal canalstenosis. 4.No severe foraminal or spinal canal stenosis. Lawrence Mc MD IMG MR XSPECIALTY Final R esult documented in this encounter Visit Diagnoses Diagnosis Mid back pain- Primary History of spinal cord compression Mid back pain History of spinal cord compression documented in this encounter Additional Health Concerns [...] documented as of this encounter Care Teams Software Engineering Supervisor Relationship Specialty Start Date End Date Fabienne Villasenor CNP [address] [place] [address] [place] [address] [email or web address] PCP - General Internal Medicine 10/16/18 Jasper Fairchild MD [address] [place] [address] [place] [address] Insurance Assigned Provider 09/09/23 06/10/24 documented as of this encounter Additional Source Comments The information contained in this document represents components of the legal health record. It is not the complete legal health record.[facility]
--- OUTSIDE RECORDS SUMMARY | 2025-03-21 15:35 | XMS_ITS | Encounter Summary ---
Author Organization [facility] Address [address] [place] [address] Phone Care Team Providers Care Link Trainer Operator Name Role Phone Fabienne Gottlieb CNP Primary Care Provider Reason for Referral * MRI/CAT Scan - Closed Specialty Diagnoses / Procedures Referred By Roberta du Referred To Contact Radiology Diagnoses Chronic bilateral low back pain with bilateral sciatica Procedures MRI Lumbar Spine Fabienne Gottlieb CNP 14 [facility] [address] [place] [address] Phone: tel: fax: [email or web address] Referral ID Status Reason Start Date Expiration Date Visits Re quested Visits Authorized [id number] Closed 03/11/2025 03/11/2026 1 1 Reason for Visit * Reason Onset Date Comments imaging request 03/10/2025 Encounter Details Date Type Department Care Team ([facility] st Contact Info) Description 03/10/2025 Telephone [facility] 14 [facility] [address] [place], [place] [phone] Fabienne Gottlieb CNP [address] [facility] [address] [place] [address] [email or web address] imaging request Social History Tobacco Use Types Packs/Day Years Used Date Smoking Tobacco: Former Cigarettes 1 20 1 959 1977 Smokeless Tobacco: Never Alcohol Use Standard [...] on file documented as of this encounter Progress Notes * Berna Jones RN - 03/21/2025 12:49 PM EDT Call made to patient to review No answer Left detailed message with prescription information Advised to call the office with any questions or concerns * Fabienne Gottlieb CNP - 03/21/2025 12:46 PM EDTAddended by: FABIENNE GOTTLIEB on: 03/21/2025 12:46 PM Modules accepted: Orders * Fabienne Gottlieb CNP - 03/21/2025 12:46 PM EDT Okay to treat presumptively for UTI. Rx for Keflex 500 mg BID x 5 days sent for patient. Thank you * Berna Jones RN - 03/21/2025 9:25 AM EDT Call made to patient to review Results reviewed She is agreeable to plan She is seeing Dr. Mc at 130 pm She is picking up the MRI disc on her way there Report faxed to [phone] She states that she feels she has a UTI She did 2 home tests and both came back with the deepest purple you can have She is having dysuria, urinary frequency and urgency Feels some irritation as well Will review with Fabienne Gottlieb * Fabienne Gottlieb CNP - 03/21/2025 8:59 AM EDT Please call patient and let her know that imaging results show a lot of degenerative changes through the lumbar spine as well as some spinal stenosis (narrowing of the central spine) that is likely resulting in nerve pinching at a few levels. We will forward results to Dr. Mc and she can reach out for appointment. Thanks. * Susi Guy RN - 03/12/2025 8:36 AM EDT Call made to Ceci. Left detailed message about MRI lumbar spine. Provided number to call and schedule. Advised to call with any questions. * Fabienne Gottlieb CNP - 03/11/2025 7:11 PM EDTAddended by: FABIENNE GOTTLIEB on: 03/11/2025 07:11 PM Modules accepted: Orders * Fabienne Gottlieb CNP - 03/11/2025 7:07 PM EDT Okay, we have discussed her back pain many times in the past. Her last MRI was in 2021, which showed chronic multilevel disc disease, central and foraminal stenosis very slightly worse at L5-S1 on right as compared to previous imaging, but overall stable. Order placed for lumbar MRI. Thanks. * Radha Tavera - 03/11/2025 4:27 PM EDT Ceci lm on the triage line to f/u on if a decision was made on a mri order. Please advise. CSS Agent (Please do not reply to this user, as this inbox is not monitored. Thank you.) Thank you. * Susi Guy RN - 03/11/2025 9:33 AM EDT Call made to Ceci. She would like to get back in to see Dr Mc, [place]. They told her they wont schedule her until she has an MRI ordered. They did the surgery on her back 4 years ago. She would like to stay with them. Since the fall over the winter her back pain has only seemed to be worse. They told her she is not a candidate for any more surgery. They could do shots. Years ago they did the epidural and that didn't work. They told her there are other options. Te lidocaine patches didn't work. Its hard to walk. Hard to stand for any length of time. Thought it was the hip at first. Realizes now its her Lower back. Low back pain that radiates to her right hip. Would like to get the MRI scheduled. Will review with provider. * Sissy Valle - 03/11/2025 9:28 AM EDT Pt returned call. Central Support Restaurant Service Manager (Please do not reply to this user; this inbox is not monitored.) Thank you. * Susi Guy RN - 03/10/2025 12:10 PM EDT Call made to Ceci. No answer. Left message to call back. * Radha Tavera - 03/10/2025 9:54 AM EDT PT lm on the triage line requesting a MRI for lower back. States she is going to see again due to the pain and patch not helping. Also requesting a xray. Advised that their office is requesting this. Please advise. CSS Agent (Please do not reply to this user, as this inbox is not monitored. Thank you.) Thank you. documented in this encounter Plan of Treatment Upcoming Encounters Date Type Department Care Team (Late st Contact Info) Description 04/09/2025 3:20 PM EST Office Visit [facility] 14 [facility] [address] [place] [address] Fabienne Gottlieb, SHIP WASHER 14 [facility] [address] [place] [address] [email or web address] documented as of this encounter Results * MRI LUMBAR SPINE [...] moderate spinal canal stenosis. Moderate right and abna-nv-oasxglth left foraminal stenosis. L2-L3: Disc bulge. Left [...] not completely characterized in this exam. Additional B4ybzbsowzsohzwu or possibly cyst on the right kidney [...] to moderatespinal canal stenosis. Moderate right and jefn-oh-cgwunqtw left foraminalstenosis. L2-L3: Disc bulge. Left central/subarticular [...] as above. 3. Probable renal cysts. Fabienne Gottlieb SHIP WASHER IMG MR XSPECIALTY Caron l Result documented in this encounter Visit Diagnoses Diagnosis Chronic bilateral low back pain with bilateral sciatica- Primary Chronic bilateral low back pain with bilateral sciatica documented in this encounter Additional Health Concerns Assessment Noted Time PHQ-2 Depression Total Score: 0 07/03/19 25 1:10 PM EST documented as of this encounter Care Teams Link Trainer Operator Relationship Specialty Start Date End Date Fabienne Gottlieb CNP [address] [place] [address] [email or web address] PCP - General Internal Medicine 10/16/18 documented as of this encounter Additional Source Comments The information contained in this document represents components of the legal health record. It is not the complete legal health record.[facility]
--- OUTSIDE RECORDS SUMMARY | 2025-03-21 15:36 | XMS_ITS | Encounter Summary ---
Author Organization [facility] Address [address] [place] [address] Phone Care Team Providers Care Channel Account Manager Name Role Phone Fabienne Villasenor CNP Primary Care Provider Jasper Fairchild MD Unavailable [phone] Encounter Details Date Type Department Care Team (Late Contact Info) Description 07/18/2019 Procedure Pass [facility], [address] [address] Social History Tobacco Use Types Packs/Day Years [...] Description 04/09/2025 3:20 PM EST Office Visit [facility] Internal Medicine 14 [facility] [address] [place], [place] [phone] Fabienne Villasenor, ANTONIO 14 [facility] [address] [place] [address] documented as of this encounter Visit Diagnoses [...] documented as of this encounter Care Teams Channel Account Manager Relationship Specialty Start Date End Date Fabienne Villasenor CNP 14 [facility] [address] [place] [address] [email or web address] PCP - General Internal Medicine 10/16/18 Jasper Fairchild MD 14 [facility] [address] [place] [address] [email or web address] Insurance Assigned Provider 09/09/23 06/10/24 documented as of this encounter Additional Source Comments The information contained in this document represents components of the legal health record. It is not the complete legal health record.[facility]
--- OUTSIDE RECORDS SUMMARY | 2025-03-21 15:36 | XMS_ITS | Encounter Summary ---
Author Organization [facility] Address [address] [facility] [address] [place] [address] Phone Care Team Providers Care Service Tester Name Role Phone Fabienne Villasenor CNP Primary Care Provider Jasper Fairchild MD Unavailable [phone] Reason for Referral * MRI/CAT Scan - Closed Specialty Diagnoses / Procedures Referred By Contac t Referred To Contact Radiology Diagnoses Low back pain, unspecified back pain laterality, unspecified chronicity, unspecified whether sciatica present Procedures MRI Lumbar Spine Lawrence Mc MD Phone: tel: fax: Referral ID Status Reason Start Date Expiration Date Visits Re quested Visits Authorized [id number] Closed 08/13/2019 08/12/2020 1 1 Encounter Details Date Type Department Care Team (Late st Contact Info) Description 08/13/2019 Transcribe Orders Virtual Department [address] [place] [address] Lawrence Mc MD 10 [facility] [address] [place] [address] Low back pain, unspecified back pain laterality, unspecified chronicity, unspecified whether sciatica present (Primary Dx) Social History Tobacco Use Types [...] Description 04/09/2025 3:20 PM EST Office Visit [facility] [facility] 14 [facility] [address] [place] [address] Fabienne Villasenor, TELEPHONE INTERCEPTOR OPERATOR 14 [facility] [address] [place] [address] [email or web address] documented as of this encounter Results * MRI LUMBAR SPINE (NEURO) WITHOUT CONTRAST (12/07/2019 2:08 PM EDT) Anatomical Region Laterality Modality L-spine Magnetic Resonan ce 12/07/2019 1:55 PM EDT Impressions 12/07/2019 2:31 PM EDT New small L1-2 disc protrusion, progressive moderate L2-3 canal stenosis due to facet arthropathy, mildly progressive L4-5 disc bulging with mild mass-effect upon the right L5 nerve root, mild increase in size of the small L5-S1 central disc protrusion and progressive moderate left neural foraminal stenosis at L2-3. No large disc herniation or severe canal stenosis. Findings as above. Narrative 12/07/2019 2:31 PM EDT HISTORY: 79-year-old female with low back pain. COMPARISON: 06/09/2015. TECHNIQUE: Exam performed on a 1.5 Yanely high-field MRI scanner. Sagittal T1, T2 and STIR, axial T1 and T2 sequences were obtained. MRI LUMBAR SPINE FINDINGS: Stable straightening of the spine, severe L5-4 and L4-5 and moderate L5-S1 disc space narrowing, multilevel endplate osteophytes and degenerative endplate fibrofatty marrow signal changes from L3-4 and L5-S1. No compression fractures. Chronic small incidental L1 vertebral body hemangiomas. No destructive bone lesions. Conus terminates at T12-L1. Paraspinal soft tissues are normal. Additional findings: Chronic bilateral renal parapelvic and cortical cysts. No incidental findings of concern. T11-12: Disc bulging and mild facet arthropathy. T12-L1: Stable disc bulging and mild facet arthropathy. L1-2: New small broad-based right paracentral disc protrusion. Stable generalized disc bulge, facet arthropathy and ligamentum flavum hypertrophy. L2-L3: Stable generalized disc bulging. Mildly progressive severe facet arthropathy with progressive moderate canal stenosis. Stable ligamentum flavum hypertrophy. Progressive moderate left neural foraminal stenosis and stable mild right neural foraminal stenosis. L3-L4: Stable broad-based disc osteophyte complex, mild right and moderate left facet arthropathy, ligamentum flavum hypertrophy and moderate canal stenosis. Stable mild right and moderate left neural foraminal stenosis. L4-L5: Mildly progressive disc bulging the right paracentral region causing mild mass-effect upon right L5 nerve root. Otherwise stable disc osteophyte complex, mild facet arthropathy, ligamentum flavum hypertrophy and mild canal stenosis. Stable moderate right and mild left neural foraminal stenosis. L5-S1: Increase in size of the small central disc protrusion. Stable mild facet arthropathy and ligamentum plate hypertrophy. Stable severe bilateral neural foraminal stenosis. Procedure Note Lino Atkinson MD - 12/07/2019 HISTORY: 79-year-old female with low back pain. COMPARISON: 06/09/2015. TECHNIQUE: Exam performed on a 1.5 Yanely high-field MRI scanner. SagittalT1, T2 and STIR, axial T1 and T2 sequences were obtained. MRI LUMBAR SPINE FINDINGS: Stable straightening of the spine, severe L5-4 and L4-5 and moderate L5-S1disc space narrowing, multilevel endplate osteophytes and degenerativeendplate fibrofatty marrow signal changes from L3-4 and L5-S1. Nocompression fractures. Chronic small incidental L1 vertebral bodyhemangiomas. No destructive bone lesions. Conus terminates at T12-L1.Paraspinal soft tissues are normal. Additional findings: Chronic bilateral renal parapelvic and corticalcysts. No incidental findings of concern. T11-12: Disc bulging and mild facet arthropathy. T12-L1: Stable disc bulging and mild facet arthropathy. L1-2: New small broad-based right paracentral disc protrusion. Stablegeneralized disc bulge, facet arthropathy and ligamentum flavumhypertrophy. L2-L3: Stable generalized disc bulging. Mildly progressive severe facetarthropathy with progressive moderate canal stenosis. Stable ligamentumflavum hypertrophy. Progressive moderate left neural foraminal stenosisand stable mild right neural foraminal stenosis. L3-L4: Stable broad-based disc osteophyte complex, mild right and moderateleft facet arthropathy, ligamentum flavum hypertrophy and moderate canalstenosis. Stable mild right and moderate left neural foraminal stenosis. L4-L5: Mildly progressive disc bulging the right paracentral regioncausing mild mass-effect upon right L5 nerve root. Otherwise stable discosteophyte complex, mild facet arthropathy, ligamentum flavum hypertrophyand mild canal stenosis. Stable moderate right and mild left neuralforaminal stenosis. L5-S1: Increase in size of the small central disc protrusion. Stable mildfacet arthropathy and ligamentum plate hypertrophy. Stable severebilateral neural foraminal stenosis. IMPRESSION: New small L1-2 disc protrusion, progressive moderate L2-3 canal stenosisdue to facet arthropathy, mildly progressive L4-5 disc bulging with mildmass-effect upon the right L5 nerve root, mild increase in size of thesmall L5-S1 central disc protrusion and progressive moderate left neuralforaminal stenosis at L2-3. No large disc herniation or severe canalstenosis. Findings as above. Lawrence Mc MD IMG MR XSPECIALTY Final R esult documented in this encounter Visit Diagnoses Diagnosis Low back pain, unspecified back pain laterality, unspecified chronicity, unspecified whether sciatica present- Primary Low back pain, unspecified back pain laterality, unspecified chronicity, unspecified whether sciatica present documented in this encounter Additional Health Concerns [...] documented as of this encounter Care Teams Service Tester Relationship Specialty Start Date End Date Fabienne Villasenor CNP 14 [facility] [address] [place] [address] [email or web address] PCP - General Internal Medicine 10/16/18 Jasper [place] MD 14 [facility] [address] [place] [address] [email or web address] Insurance Assigned Provider 09/09/23 06/10/24 documented as of this encounter Additional Source Comments The information contained in this document represents components of the legal health record. It is not the complete legal health record.[facility]
--- OUTSIDE RECORDS SUMMARY | 2025-03-21 15:36 | XMS_ITS | Encounter Summary ---
Author Organization [facility] Address [address] [place] [address] Phone Care Team Providers Care Music Department Chair Name Role Phone Fabienne Villasenor CNP Primary Care Provider Jasper Fair[place] MD Unavailable [phone] Encounter Details Date Type Department Care Team (Late Contact Info) Description 03/23/2022 Procedure Pass [facility] Admitting Dept Virtual Department [address] [place] [address] Social History Tobacco Use Types Packs/Day Years Used Date Smoking Tobacco: Former Cigarettes 1 24 06 319 1977 Smokeless Tobacco: Never Alcohol Use Standard [...] Upcoming Encounters Date Type Department Care Team ([facility] Contact Info) Description 04/09/2025 3:20 PM EST Office Visit [facility] [place] [facility] [address] [facility] [address] [place] [address] Fabienne Villasenor CNP 14 [facility] [address] [place], [place] [phone] documented as of this encounter Visit Diagnoses Not on filedocumented in this encounter Additional Health Concerns Infection Onset Date Last Indicated Resolved Time CoV-Risk Comment:Per Ambulatory Triage Form 03/15/2022 03/16/202203/27 1:21 AM EDT CoV-Exposed Comment:Recent close contact documented in the COVID-19 Amb Triage Form 12/04/2023 12/08/2023 12/25/2023 1:21 AM E DT CoV-Risk Comment:Per Ambulatory Triage Form 12/08/2023 12/08/202312/18 1:22 AM EDT Assessment Noted Time PHQ-2 Depression Total Score: 0 06/16/19 1:01 PM EST documented as of this encounter Care Teams Music Department Chair Relationship Specialty Start Date End Date Fabienne Villasenor CNP 14 [facility] [address] [place] [address] PCP - General Internal Medicine 10/16/18 Jasper Fair[place] MD 14 [facility] [address] [place] [address] [email or web address] Insurance Assigned Provider 09/09/23 06/10/24 documented as of this encounter Additional Source Comments The information contained in this document represents components of the legal health record. It is not the complete legal health record.[facility]
--- OUTSIDE RECORDS SUMMARY | 2025-03-21 15:36 | XMS_ITS | Encounter Summary ---
Author Organization [facility] Address [address] [place] [address] Phone Care Team Providers Care Milling/Polishing Operator Name Role Phone Fabienne Villasenor CNP Primary Care Provider Jasper Fair[place] MD Unavailable [phone] Encounter Details Date Type Department Care Team (Latest Contact Info) Description 02/25/2022 Transcribe Orders Virtual Department [address] [place] [address] Renato Nation MD [address] [place] [address], [address] [place], [place] [phone] [email or web address] Ataxia (Primary Dx); Numbness Social History Tobacco Use Types Packs/Day Years Used Date Smoking Tobacco: Former Cigarettes 1 24 06 739 - 0047 Smokeless Tobacco: Never Alcohol Use Standard Drinks/Week [...] 04/09/2025 3:20 PM EST Office Visit [facility] [address] [place] [phone] Fabienne Villasenor CNP [address] [place] [address] [place] [address] [email or web address] documented as of this encounter Visit Diagnoses Diagnosis Ataxia- Primary Lack of coordination Numbness Disturbance of skin sensation documented in this encounter Additional Health Concerns [...] documented as of this encounter Care Teams Milling/Polishing Operator Relationship Specialty Start Date End Date Fabienne Villasenor, ANTONIO [address] [place] [address] [place] [address] [email or web address] PCP - General Internal Medicine 10/16/18 Jasper [place] MD [address] [place] [address] [place] [address] [email or web address] Insurance Assigned Provider 09/09/23 06/10/24 documented as of this encounter Additional Source Comments The information contained in this document represents components of the legal health record. It is not the complete legal health record.[facility]
--- OUTSIDE RECORDS SUMMARY | 2025-03-21 15:36 | XMS_ITS | Encounter Summary ---
Author Organization [facility] Address [address] [place] [address] [place] [address] Phone Care Team Providers Care Hospice Superintendent Name Role Phone Fabienne Villasenor CNP Primary Care Provider Jasper [place] MD Unavailable [phone] Encounter Details Date Type Department Care Team (Late Contact Info) Description 12/09/2021 Procedure Pass [facility], [address] [address] Social History Tobacco Use Types Packs/Day Years Used Date Smoking Tobacco: Former Cigarettes 1 24 06 259 1977 Smokeless Tobacco: Never Alcohol Use Standard [...] Description 04/09/2025 3:20 PM EST Office Visit [facility] 14 [facility] [address] [place], [place] [phone] Fabienne Villasenor CNP 14 [facility] [address] [place], [place] [phone] documented as of this encounter Visit Diagnoses [...] documented as of this encounter Care Teams Hospice Superintendent Relationship Specialty Start Date End Date Fabienne Villasenor CNP [address] [place] [address] [place] [address] [email or web address] PCP - General Internal Medicine 10/16/18 Jasper Fair[place] MD [address] [place] [address] [place] [address] Insurance Assigned Provider 09/09/23 06/10/24 documented as of this encounter Additional Source Comments The information contained in this document represents components of the legal health record. It is not the complete legal health record.[facility]
--- OUTSIDE RECORDS SUMMARY | 2025-03-21 15:36 | XMS_ITS | Encounter Summary ---
Author Organization [facility] Address [address] [place] [address] [place] [phone] Phone Care Team Providers Care Sales Special Agent Name Role Phone Fabienne Villasenor CNP Primary Care Provider Jasper Fairchild MD Unavailable [phone] Encounter Details Date Type Department Care Team (Late Contact Info) Description 08/16/2019 Ancillary Orders [facility],Outside Imaging [address] [place] [address] System, Provider Not In, [place] [address] Social History Tobacco Use Types Packs/Day Years [...] Description 04/09/2025 3:20 PM EST Office Visit [facility] Internal Medicine 14 [facility] [address] [place], [place] [phone] Fabienne Villasenor CNP 14 [facility] [address] [place] [address] [phone] (work) [email or web address] documented as of this encounter Results * MRI Spine (Bone) Outside (No Interpretation) (06/09/2015 12:00 AM EST) Narrative SYSTEMGENERATED, DOCUMENTATION - 08/16/2019 9:13 AM EDT This study is for PACS storage only and not for interpretation. us Provider Not In System PhD IMG OUTSIDE IMAGING W /OUT INTERPRETATION Final Result * MRI Spine (Bone) Outside (No Interpretation) (06/10/2014 12:00 AM EST) Narrative SYSTEMGENERATED, DOCUMENTATION - 08/16/2019 9:12 AM EDT This study is for PACS storage only and not for interpretation. us Provider Not In System PhD IMG OUTSIDE IMAGING W /OUT INTERPRETATION Final Result * XR SPINE OUTSIDE(NO INTERPRETATION) (06/02/2014 12:00 AM EST) Narrative SYSTEMGENERATED, DOCUMENTATION - 08/16/2019 9:11 AM EDT This study is for PACS storage only and not for interpretation. us Provider Not In System PhD IMG OUTSIDE IMAGING W /OUT INTERPRETATION Final Result * MRI Spine (Bone) Outside (No Interpretation) (03/22/2014 12:00 AM EDT) Narrative SYSTEMGENERATED, DOCUMENTATION - 08/16/2019 9:11 AM EDT This study is for PACS storage only [...] documented as of this encounter Care Teams Sales Special Agent Relationship Specialty Start Date End Date Fabienne Villasenor CNP [address] [place] [address] [place] [phone] [email or web address] PCP - General Internal Medicine 10/16/18 Jasper Fairchild MD [address] [place] [address] [place] [phone] Insurance Assigned Provider 09/09/23 06/10/24 documented as of this encounter Additional Source Comments The information contained in this document represents components of the legal health record. It is not the complete legal health record.[facility]
--- OUTSIDE RECORDS SUMMARY | 2025-03-21 15:36 | XMS_ITS | Encounter Summary ---
Author Organization [facility] Address [address] [place] [address] [place] [phone] Phone Care Team Providers Care Paint Laboratory Technician Name Role Phone Fabienne Villasenor CNP Primary Care Provider Jasper Fairchild MD Unavailable [phone] Encounter Details Date Type Department Care Team (Late Contact Info) Description 12/28/2021 Procedure Pass [facility], Ct Scan - [facility] [address] [place] [address] Social History Tobacco Use Types Packs/Day Years Used Date Smoking Tobacco: Former Cigarettes 1 24 06 749 1977 Smokeless Tobacco: Never Alcohol Use Standard Drinks/Week Comments Never 0 (1 standard drink = 0.6 oz pur e alcohol) Comments No Sex and Gender Information Value Date Recorded Sex Assigned at Female 07/12/2020 7:30 AM EST Legal Sex Female 3:15 PM EDT Gender Identity Female 07/12/2020 7:30 AM EST Sexual Orientation Not on file documented as of this encounter Functional Status * Calculated C-SSRS Risk Score (Lifetime/Recent) Answer Date of Assessment Author No Risk Indicated 12/28/2021 6:27 AM EDT Camille Bedoya RN * Simpson Suicide Severity Rating Scale (Screener/Recent Self-Report) Question Answer Date of Assessment Author 1. Wish to be (Past 1 Month) No 022 6:27 AM EDT Camille Bedoya RN 2. Non-Specific Active Suici trish Thoughts (Past 1 Month) No 12/28/2021 6:27 AM EDT Ban Bedoya RN 6. Suicidal Behavior (Lifetime) No 6:27 AM EDT Camille Bedoya RN documented as of this encounter Plan of Treatment Upcoming Encounters Date Type Department Care Team (Late st Contact Info) Description 04/09/2025 3:20 PM EST Office Visit [facility] Internal Medicine 14 [facility] [address] [place] [phone] Fabienne Villasenor CNP 14 [facility] [address] [place] [phone] [email or web address] documented as of this encounter Visit Diagnoses [...] documented as of this encounter Care Teams Paint Laboratory Technician Relationship Specialty Start Date End Date Fabienne Villasenor CNP 14 [facility] [address] [place] [phone] [email or web address] PCP - General Internal Medicine 10/16/18 Jasper Fairchild MD 14 [facility] [address] [place] [phone] [email or web address] Insurance Assigned Provider 09/09/23 06/10/24 documented as of this encounter Additional Source Comments The information contained in this document represents components of the legal health record. It is not the complete legal health record.[facility]
--- OUTSIDE RECORDS SUMMARY | 2025-03-21 15:36 | XMS_ITS | Encounter Summary ---
Author Organization [facility] Address [address] [place] [phone] Phone Care Team Providers Care Keno Dealer Name Role Phone Fabienne Villasenor CNP Primary Care Provider Jasper Fairchild MD Unavailable [phone] Encounter Details Date Type Department Care Team (Late Contact Info) Description 07/18/2019 Procedure Pass [facility], [address] [address] Social History Tobacco Use Types Packs/Day Years [...] Description 04/09/2025 3:20 PM EST Office Visit [facility] Internal Medicine 14 [facility] [address] [place], [place] [phone] Fabienne Villasenor, ANTONIO 14 [facility] [address] [place] [address] documented as of this encounter Visit Diagnoses [...] documented as of this encounter Care Teams Keno Dealer Relationship Specialty Start Date End Date Fabienne Villasenor CNP 14 [facility] [address] [place] [phone] [email or web address] PCP - General Internal Medicine 10/16/18 Jasper Fairchild MD 14 [facility] [address] [place] [phone] [email or web address] Insurance Assigned Provider 09/09/23 06/10/24 documented as of this encounter Additional Source Comments The information contained in this document represents components of the legal health record. It is not the complete legal health record.[facility]
--- OUTSIDE RECORDS SUMMARY | 2025-03-21 15:36 | XMS_ITS | Clinical Summary ---
Author Organization [facility] Address [address] [phone] Care Team Providers Care Cooler Operator Name Role Phone Unavailable Primary Care Provider Unavailabl e Social History Tobacco Use Types Packs/Day Years Used Date Smoking Tobacco: Never Assessed Sex and Gender Information Value Date Recorded Sex Assigned at Not on file Gender Identity Not on file Sexual Orientation Not on file Plan of Treatment Health Maintenance Due Date Last Done Comments COVID-19 Vaccine (#1) 1941 Depression Screening 1953 Preventative Health Evaluation 1959 DTap / Tdap / Td (1 - Tdap) 1960 Shingrix-Zoster Vaccine (1 of 2) 1991 Fall Risk Assessment 2006 Osteoporosis Screening (DEXA Scan) 2006 Pneumococcal Vaccine (1 of 1 - PCV) 2006 RSV Adult > 60+ Yrs or Pregn ant (1 - 1-dose 75+ series) 2016 Influenza Vaccine (#1) 2025 03/06/2019 Hepatitis B Vaccines Aged Out No long er eligible based on patient's age to complete this topic RSV Ped < 20 months Aged Out No longe r eligible based on patient's age to complete this topic ShelbyKaren Personal/Family Self 1940 ([place]) [address] [place] [phone]
--- OUTSIDE RECORDS SUMMARY | 2025-03-21 15:36 | XMS_ITS | Clinical Summary ---
Author Organization [facility] Address [address] [place] [phone] Phone Care Team Providers Care Blood Or Blood Bank Technician Name Role Phone Salome Villasenoranna Jany ALVAREZ Primary Care Provider Allergies Active Allergy Reactions Criticality Noted Date Comments Amlodipine Swelling 06/12/2024 Ball 03/08/2022 Fresh fruits Pine 03/08/2022 Fresh fruit Emerado 03/08/2022 Fresh fruits Sulfa (Sulfonamide Antibiotics) 10/03 Medications cholecalciferol (VITAMIN D3) 2,000 unit capsule Take 2,000 Units by mouth every other day. Active albuterol 90 mcg/actuation inhalerIndication s:Mild intermittent asthma without complication Inhale 2 puffs into the lungs every 6 (six) hours as needed for wheezing. 6.7 g 1 2 Active acetaminophen (TYLENOL) 650 MG CR tablet Take 2 tablets by mouth 2 (two) times a day as needed for pain (specific location in comments). Active losartan-hydroCHL OROthiazide (HYZAAR) 50-12.5 mg per tabletIndications :Essential hypertension Take 1 tablet in the morning and 1/2 tablet in the evening 180 tablet 3 5 Active pantoprazole (PROTONIX) 40 MG tabletIndications :Gastroesophageal reflux disease TAKE 1 TABLET BY MOUTH EVERY DAY 90 tablet 1 5 Active atorvastatin (LIPITOR) 20 MG tabletIndications :Pure hypercholesterole brianna, unspecified TAKE 1 TABLET BY MOUTH EVERY DAY 90 tablet 1 5 Active amoxicillin (AMOXIL) 500 MG capsule Take 2,000 mg by mouth once as needed (prior to dental procedure). 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 Remove & Discard patch within 12 hours or as directed by 30 patch 5 Active cephalexin (KEFLEX) 500 MG capsule Take 1 capsule (500 mg total) by mouth 2 (two) times a day for 5 days. 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 She would like to keep him home as long as possible, although she also recognizes the strain. She has good support in her children and some neighbors. She would benefit from the [facility], she has been provided the information in the past and she will consider. Vaginal prolapse 07/03/2024 Assessment & Plan (07/03/2024 2:57 PM EST): Referral placed to Dr. Wolf of uro-gynecology. Nail deformity 07/03/2024 Assessment & Plan (07/03/2024 3:02 PM EST): Referral placed to dermatology for evaluation. Arteriosclerotic vascular disease 05/21/2024 Overview (05/21/2024): Atherosclerotic changes on CT of abdomen 2022 Bilateral hand pain 06/21/2022 Assessment & Plan (06/21/2022 6:02 PM EST): Would recommend topical Arnica or Voltaren gel. Warm moist heat may be helpful for morning stiffness. We will evaluate further for any other autoimmune causes of her pain with blood work. Chronic low back pain with bilateral sciatica Assessment & Plan (07/03/2024 2:55 PM EST): Patient continues to struggle with chronic low back pain and left hip/leg pain. She is using OTC therapies and able to stay active. Could consider referral back to physiatry as needed. Assessment & Plan (01/31/2023 5:58 PM EDT): Patient does struggle with several years of chronic low back pain, bilateral hip pain, and sciatica type pain, worse on the left. Patient has been seen by physiatry and neurosurgery, without any benefit with treatments. She reports that she is learning to live with the pain and has no interest in further interventions at this time. Assessment & Plan (06/21/2022 5:59 PM EST): Patient has been struggling with several years of chronic low back pain, bilateral hip pain, and sciatica type pain, which initially was worse on the left but is now involving the right as well. Patient has been seen by physiatry and neurosurgery, without any benefit with treatments. We will do further evaluation of SI joints and hips, will also do blood work to evaluate for PMR or other rheumatologic causes of her pain. Follow-up in 1 month, or once lab results are back. Patient in agreement with plan. Assessment & Plan (06/16/2021 2:07 PM EST): As above, follow-up with neurosurgery as scheduled. Encounter for Medicare annual wellness exam 03/06 Assessment & Plan (07/03/2024 2:59 PM EST): Generally well elderly female, despite multiple chronic conditions. Patient declining Shingrix, RSV, and COVID vaccine, despite discussion of risk/benefits. Advised patient that Tdap is not covered for preventative medicine at his age, would recommend follow up for any animal bites or lacerations for Tdap booster. Patient declines any further bone density testing. No further mammograms, colonoscopies, or pap smears needed at this age. Advised on healthy diet, regular exercise, and to consume at least 1200 mg Calcium and 2000 iU Vitamin D daily by diet and/or supplementation. Assessment & Plan (06/29/2023 11:46 AM EST): Generally well elderly female, despite multiple chronic conditions. Patient declining Shingrix vaccine, despite discussion of risk/benefits. Advised patient that Tdap is not covered for preventative medicine at his age, would recommend follow up for any animal bites or lacerations for Tdap booster. Patient declines any further bone density testing. No further mammograms, colonoscopies, or pap smears needed at this age. Advised on healthy diet, regular exercise, and to consume at least 1200 mg Calcium and 2000 iU Vitamin D daily by diet and/or supplementation. Assessment & Plan (06/21/2022 6:01 PM EST): Generally well elderly female, despite multiple chronic conditions. Patient declining further COVID boosters and Shingrix vaccine, despite discussion of risk/benefits. Advised patient that Tdap is not covered for preventative medicine at his age, would recommend follow up for any animal bites or lacerations for Tdap booster. Patient declines any further bone density testing. No further mammograms, colonoscopies, or pap smears needed at this age. Advised on healthy diet, regular exercise, and to consume at least 1200 mg Calcium and 2000 iU Vitamin D daily by diet and/or supplementation. Assessment & Plan (06/16/2021 2:05 PM EST): Generally well elderly female, despite multiple chronic conditions. Immunizations updated in office today, with Prevnar given. May consider Shingrix vaccine at outpatient pharmacy. Patient declines any further bone density testing. No further mammograms, colonoscopies, or pap smears needed at this age. Advised on healthy diet, regular exercise, and to consume at least 1200 mg Calcium and 2000 iU Vitamin D daily by diet and/or supplementation. Assessment & Plan (04/01/2020 8:02 PM EDT): Generally well female, despite multiple chronic conditions. Immunizations updated in office today, with Pneumovax given. May consider Shingrix vaccine at outpatient pharmacy. No further Pap smears recommended. Patient declines any further bone density testing. Patient is overdue for mammogram, although okay to extend to every other year screening. Patient declines colonoscopy, although would be open to Cologuard testing. Advised patient to call insurance company to see if this would be covered. Advised on healthy diet, regular exercise, and to consume at least 1200 mg Calcium and 2000 iU Vitamin D daily by diet and/or supplementation. Multilevel neural foraminal stenosis 04/01/2020 Assessment & Plan (06/16/2021 2:04 PM EST): Ongoing issues with low back and left-sided radiculopathy, for which she recently had an MRI which shows multilevel disc disease with disc protrusions and nerve pinching. Recent course of gabapentin was not terribly helpful. Follow-up with Dr. Mc as scheduled next month. Assessment & Plan (04/01/2020 8:04 PM EDT): Recent flareup of chronic low back pain, with left-sided lumbar radicular symptoms. MRI of lumbar spine shows multilevel neuroforaminal stenosis. Her symptoms have settled down with a round of physical therapy. Follow-up with neurosurgery and physiatry as needed. Seasonal allergies 02/18/2019 Assessment & Plan (07/03/2024 2:59 PM EST): Stable, with use of Flonase as needed. No recent worsening of allergies reported. Continue current therapies and follow-up as needed. Assessment & Plan (06/29/2023 11:47 AM EST): Stable, with use of Flonase as needed. No recent worsening of allergies reported. Continue current therapies and follow-up as needed. Assessment & Plan (06/21/2022 6:01 PM EST): Stable, with use of Flonase as needed. No recent worsening of allergies reported. Continue current therapies and follow-up as needed. Assessment & Plan (06/16/2021 2:04 PM EST): Stable, with use of Flonase as needed. No recent worsening of allergies reported. Continue current therapies and follow-up as needed. Assessment & Plan (04/01/2020 8:06 PM EDT): Stable, with use of Flonase as needed. No recent worsening of allergies reported. Continue current therapies and follow-up as needed. Assessment & Plan (02/18/2019 1:43 PM EDT): History and exam consistent with allergic rhinitis, likely seasonal allergies. Pt advised to treat with Claritin or daily and intranasal steroid,Flonase, daily. Pt instructed on use, side effects, and adverse effects. If no improvement in 2-3 weeks with current therapies, pt encouraged to f/u in office for reevaluation. Pt verbalizes understanding and in agreement with plan. Essential hypertension 10/16/2018 Assessment & Plan (11/09/2024 9:21 AM EDT): Stable, improved blood pressures on losartan-HCTZ to 75-22.5 mg daily (50-12.5 mg in the morning and 25-7.5 mg in the evening). Likely pain was contributing to elevated blood pressure but improved at this point. F/u in 3 months for routine monitoring. Assessment & Plan (07/03/2024 2:02 PM EST): Stable, improved blood pressures on losartan-HCTZ to 75-22.5 mg daily (50-12.5 mg in the morning and 25-7.5 mg in the evening). F/u in 3 months for reevaluation. Assessment & Plan (06/12/2024 12:58 PM EST): Improved blood pressures, but side effects to low dose amlodipine present (ankle swelling). Will stop amlodipine and increase losartan-HCTZ to 75-22.5 mg daily. F/u in 6 weeks for reevaluation. Assessment & Plan (05/17/2024 12:24 PM EST): Elevated blood pressures reported at home, will restart amlodipine 2.5 mg daily which patient has been on in the past. Continue losartan-HCTZ 50-12.5 mg daily. F/u in 3-4 weeks for reevaluation. Patient verbalizes understanding and in agreement with plan. Assessment & Plan (08/02/2023 11:07 AM EST): Improved blood pressure with addition of amlodipine to current regimen of losartan-HCTZ. Continue current therapies and f/u at next appointment scheduled in September. Assessment & Plan (07/26/2023 9:44 AM EST): Elevated blood pressure noted during preop exam yesterday for her upcoming left total hip replacement. Her blood pressure in office today is better, although still elevated. Will add amlodipine 2.5 mg daily to her current regimen of losartan- HCTZ 50-12.5 mg 1/2 tablet twice daily. Patient instructed on medication use, potential side effects and adverse effects. We will follow-up in 1 week for reevaluation and ensure that blood pressure is improving. Otherwise, she is cleared for her upcoming surgery. Patient verbalizes understanding and in agreement with plan. Assessment & Plan (06/29/2023 11:48 AM EST): Stable on current therapies. Continue current regimen of losartan-HCTZ twice daily. Follow-up in 3 months for follow up. Assessment & Plan (01/31/2023 5:56 PM EDT): Stable on current therapies. Continue current regimen of losartan-HCTZ twice daily. Follow-up in 4 months for annual wellness exam as scheduled. Assessment & Plan (06/21/2022 5:56 PM EST): In office today, although patient reports that her blood pressures tend to trend up towards the end of the day with some headaches. Will switch to twice daily dosing of losartan-HCTZ, but may consider increasing dose if elevated blood pressures persist. Follow-up in 1 month for reevaluation. Assessment & Plan (06/16/2021 2:01 PM EST): Stable on current therapies. Continue current regimen and follow-up in 6 months for reevaluation. Assessment & Plan (07/01/2020 2:45 PM EST): Stable on current therapies. Some improvement in nocturia by moving second dose up to dinnertime. Encourage patient on low-sodium diet, which is likely trigger for leg swelling. Continue to monitor and follow-up in 6 months, or sooner as needed. Assessment & Plan (04/01/2020 8:03 PM EDT): Stable, and improved after recent increase of Benicar. Advised patient to take second dose of Benicar earlier in the afternoon to prevent nocturnal urinary frequency. I did advise her that she could take both tablets in the morning, but she would prefer to separate the doses to twice daily. Pt encouraged to adhere to low sodium diet, avoid regular alcohol use, and importance of diet and exercise. We will plan to follow-up in 3 months for reevaluation. Assessment & Plan (02/18/2019 1:42 PM EDT): Stable on current therapies, continue current regimen. Assessment & Plan (10/16/2018 12:42 PM EDT): Stable on current therapies, continue current regimen. Gastroesophageal reflux disease 10/16/2018 Assessment & Plan (07/03/2024 2:55 PM EST): Stable, on Protonix 40 mg daily. Continue current regimen and f/u as needed. Assessment & Plan (06/29/2023 11:47 AM EST): Stable, on Protonix 40 mg daily. Assessment & Plan (06/21/2022 5:59 PM EST): Stable, on Protonix 40 mg daily. Assessment & Plan (06/16/2021 2:02 PM EST): Stable, on Protonix 40 mg daily. Assessment & Plan (04/01/2020 8:04 PM EDT): Stable, on Protonix 40 mg daily. Assessment & Plan (02/18/2019 1:44 PM EDT): Relatively stable on current therapies, although some increased heartburn recently with use of Metamucil. Continue Protonix 40 mg daily and follow-up if worsening. [id number] therapies occasionally as needed. Assessment & Plan (10/16/2018 12:41 PM EDT): Stable on current therapies. Follow-up as needed. Mild intermittent asthma without complication Assessment & Plan (07/03/2024 2:03 PM EST): Stable, with very infrequent use of albuterol reported. Continue current therapies and follow-up as needed. Assessment & Plan (06/29/2023 11:47 AM EST): Stable, with very infrequent use of albuterol reported. Continue current therapies and follow-up as needed. Assessment & Plan (06/21/2022 5:56 PM EST): Stable, with very infrequent use of albuterol reported. Continue current therapies and follow-up as needed. Assessment & Plan (06/16/2021 2:02 PM EST): Stable, with very infrequent use of albuterol reported. Continue current therapies and follow-up as needed. Assessment & Plan (04/01/2020 8:03 PM EDT): Stable, with very infrequent use of albuterol reported. Continue current therapies and follow-up as needed. Assessment & Plan (02/18/2019 1:42 PM EDT): Stable, without evidence of acute exacerbation. Continue current therapies and follow-up as needed. Assessment & Plan (10/16/2018 12:42 PM EDT): Stable, without evidence of exacerbation in office today. Continue current therapies Malignant neoplasm of bladder 10/16/2018 Assessment & Plan (07/03/2024 2:02 PM EST): Stable, based on most recent cystoscopies. Routine follow-up with Dr. Mccall as scheduled. Assessment & Plan (06/29/2023 11:48 AM EST): Stable, based on most recent cystoscopies. Routine follow-up with Dr. Mccall as scheduled. Assessment & Plan (06/21/2022 5:55 PM EST): Stable, based on most recent cystoscopies. Routine follow-up with Dr. Mccall as scheduled. Assessment & Plan (06/16/2021 2:01 PM EST): Stable, based on most recent cystoscopies. Routine follow-up with Dr. Mccall as scheduled. Assessment & Plan (07/01/2020 2:46 PM EST): Several new tumors noted on most recent cystoscopy. Patient being followed by Dr. Mccall of urology, with planned resection next month and likely BCG treatments. F/u in office in 6 months. Assessment & Plan (04/01/2020 8:06 PM EDT): Stable, without recurrence per patient report. Continue routine follow-up with Dr. Mccall of urology as scheduled. Assessment & Plan (10/16/2018 12:43 PM EDT): Stable, without recurrence per patient report. Continue routine follow-up with Dr. Mccall of urology as scheduled. Mixed hyperlipidemia 06/05/2000 Assessment & Plan (07/03/2024 2:03 PM EST): Stable on atorvastatin, although patient overdue for blood work. Orders placed. Resolved Problems Problem Noted Date Diagnosed Date Resolved Date Irritation of external female genitalia 06/12/2024 07/03/2024 Assessment & Plan (06/12/2024 12:59 PM EST): Irritation of perivaginal region, likely due to effect of moisture of incontinence and frequent incontinence pad use. Patient advised to keep area clean and dry, apply topical barrier cream. Will treat with a course of topical antifungal due to potential secondary yeast infection. F/u in 3 weeks at annual wellness exam. Patient verbalizes understanding and in agreement with plan. Carotid atherosclerosis 05/21/202406/06 Disorder of glucose metabolism 05/21/2024 07/03/2024 Overview (05/21/2024): A1c 5.8 07/25/2023 Dyslipidemia 05/21/2024 07/03/2024 Vertigo 05/17/2024 07/03/2024 Assessment & Plan (05/17/2024 12:23 PM EST): Patient reporting an episode yesterday of dizziness which she describes as if the room was spinning and she became nauseous. Suspect vertigo, which patient has been struggling with off and on over the past few months. Will place referral to [facility] for evaluation/vestibular therapy. Continue Meclizine as needed. Chronic left-sided headaches 06/29/2023 07/03/2024 Assessment & Plan (06/29/2023 11:50 AM EST): Several months of new left sided headaches. Would recommend head imaging due to new headache, rule out trigeminal neuralgia. MRI brain placed. Patient verbalizes understanding and in agreement with plan. Will f/u once MRI results are back, may consider treatment options based on results. Trochanteric bursitis of both hips 07/27/2022 07/03/2024 Assessment & Plan (07/27/2022 11:22 AM EST): Patient reporting some pretty significant in her bilateral hip pain with recent bilateral trochanteric bursitis injections with Dr. Pratt. Patient starting physical therapy treatments. F/u as needed. Ingrown toenail of right foot 06/16/2021 06/21/2022 Assessment & Plan (06/16/2021 2:06 PM EST): No evidence of ongoing nail bed infection, but ingrown toenail present which may cause ongoing issues. Will place referral to Dr. Li at [facility] podiatry. Follow-up as needed. Trochanteric bursitis of left hip 11/27/2020 06/21/2022 Primary osteoarthritis of left hip 11/27/2020 07/03/2024 Assessment & Plan (06/29/2023 11:46 AM EST): Patient scheduled to have left total hip replacement with Dr. Almonte. Patient hopeful that this will address some of her chronic pain and difficulty with ambulation. Assessment & Plan (01/31/2023 5:57 PM EDT): Patient has a history of arthritis in the hip, although Dr. Pratt suspect that hip pain is more related to bursitis and likely referred pain from the lumbar spine. Patient does get some benefit from cortisone injections and is not interested in further surgical intervention. Continue follow-up with orthopedics as planned. Bilateral hip pain 07/01/2020 3 Assessment & Plan (06/21/2022 6:00 PM EST): We will do further work-up with x-rays. Follow-up once results are back. Assessment & Plan (11/04/2020 5:15 PM EDT): Chronic pain of left hip radiating down left leg to knee. Somewhat difficult to determine whether pain is from hip or referred pain from lumbar spine. Patient has appointment scheduled with Dr. Valentin of orthopedic in 3 weeks, but in the meantime we will do a short Prednisone taper. Pt instructed on use, side effects, and adverse effects. Will refill patient's Diclofenac gel. Advised patient to also try topical lidocaine or salonpas patches on hip region. Will f/u next month as planned, although patient encouraged to call in 4-5 days to discuss how she is feeling with current therapies. Pt verbalizes understanding and in agreement with plan. Assessment & Plan (07/01/2020 2:47 PM EST): Acute left hip pain, without recalled trauma. Will do further work-up with x-ray of hip. May consider referral to physical therapy if not improving and x-ray unrevealing. We will follow-up by phone once x-ray results are back. Chronic constipation 02/18/2019 023 Assessment & Plan (06/16/2021 2:02 PM EST): Relatively stable with use of Metamucil. Assessment & Plan (02/18/2019 1:44 PM EDT): Relatively stable and improved with use Metamucil as needed. Follow-up for any worsening. Chronic right shoulder pain 02/18/2019 06/21/2022 Assessment & Plan (07/01/2020 2:46 PM EST): Improved with cortisone injection into right shoulder with Dr. Valentin. Encouraged her on doing home physical therapy exercises and follow-up with orthopedics if pain recurs. Assessment & Plan (04/01/2020 8:06 PM EDT): Ongoing right shoulder pain, with multiple tendon/rotator cuff tears noted on MRI. Continue physical therapy, but may consider referral to aquarium specialist if not improving. Patient will discuss with Dr. Trevino and follow-up for referral as needed. Assessment & Plan (02/18/2019 1:45 PM EDT): Chronic right shoulder pain, primarily bothersome at nighttime while sleeping. Patient provided with some home physical therapy exercises to try and follow-up appointment with Dr. Fairchild to discuss cortisone injection. May also consider a round of formal physical therapy if not improved with these interventions. Patient verbalizes understanding and in agreement with plan. Spinal cord compression 10/16/201803/06 Assessment & Plan (02/18/2019 1:42 PM EDT): Patient doing relatively well following T10-11 spinal cord decompression with Dr. Beck in 12/2018. Some ongoing saddle anesthesia and numbness and tingling of lower extremities, which continues to be worked up by her neurosurgeon. Continue physical therapy and follow-up in office in 6 months or sooner as needed. Assessment & Plan (10/16/2018 12:41 PM EDT): Details of cord compression not mentioned in old records, encourage patient to have Dr. Beck forward us all her old records. Follow-up with surgical decompression surgery as scheduled. Pure hypercholesterolemia 10/16/2018 Assessment & Plan (06/29/2023 11:46 AM EST): Stable on current therapies, although patient is overdue for fasting lipid. Continue Lipitor as prescribed. Assessment & Plan (06/21/2022 5:57 PM EST): Stable on current therapies, although patient is overdue for fasting lipid. Continue Lipitor as prescribed. Assessment & Plan (06/16/2021 2:02 PM EST): Stable on current therapies, continue Lipitor as prescribed. Assessment & Plan (04/01/2020 8:04 PM EDT): Stable on current therapies, continue Lipitor as prescribed. Assessment & Plan (10/16/2018 12:43 PM EDT): Continue current regimen. Will check fasting lipid panel at annual physical exam in 07/2019 Carotid atherosclerosis, bilateral 10/16/2018 04/07/2020 Overview (04/07/2020): Carotid ultrasound in 2019 showing very minimal plaque buildup and no stenosis. No additional imaging required. Assessment & Plan (04/01/2020 8:03 PM EDT): Continue Lipitor and aspirin 81 mg daily. Patient is due for repeat carotid ultrasound as her last was over 2 years ago. Order entered and signed, will follow-up by phone once results are back. Assessment & Plan (10/16/2018 12:44 PM EDT): Stable per most recent ultrasound report in 03/2018. Continue aspirin 81 mg daily and atorvastatin 20 mg daily. We will plan to recheck ultrasound in 03/2020. Patient verbalizes understanding and in agreement with plan. Viral URI with cough 10/16/2018 019 Assessment & Plan (10/16/2018 12:42 PM EDT): Pt reassured that symptoms are consistent with viral URI, no evidence of PNA or bronchitis. Pt encouraged on increased fluid intake, decongestants and expectorants for symptom control. Will provide patient short course of Tessalon Perles for cough suppression. F/u in office or by phone if no improvement in 4-5 days with current therapies. History of bladder cancer 06/05/2000 Encounters Date Type Department Care Team Description 03/18/2025 8:32 PM EDT - 03/18/2025 11:59 PM EDT Hospital Encounter [address] [address] Fabienne Villasenor CNP Arrived Discharge Disposition: Home or Self Care 03/11/2025 Procedure Pass [address] [address] 03/10/2025 Telephone [facility] Internal [facility] 14 [facility] [address] [place] [address] Fabienne Villasenor CNP imaging request 02/25/2025 Telephone [facility] [address] [address] Fabienne Villasenor CNP med not covered 02/19/2025 Telephone [facility] [address] [address] Berna Jones, canvas repairer Prior Authorization 02/18/2025 3:40 PM EDT Office Visit [facility] [address] [address] Fabienne Villasenor CNP History of chest pain (Primary Dx); Essential hypertension; Chronic bilateral thoracic back pain; Situational stress 02/14/2025 Telephone [facility] [address] [address] Susi Guy, KYLE Follow-up 02/12/2025 10:15 AM EDT Ancillary Procedure [address] [address] Arpit Valdez PA-C 02/12/2025 8:55 AM EDT - 02/12/2025 1:54 PM EDT Emergency [facility] [address] [place] [address] Discharge Disposition: Home or Self Care 02/11/2025 Refill [facility] [address] [address] Fabienne Villasenor, ANTONIO Medication Refill (Pantoprazole and Atorvastatin) 01/21/2025 12:30 PM EDT Office Visit [facility] 14 [facility] [address] [place] [address] Idalia Duffy, JUAN DIEGO Abnormal skin growth (Primary Dx); Essential hypertension from Last 3 Months Immunizations Immunization Administration Dates Next Due COVID-19 (Pre-03/27) Pfizer Vaccine, mRNA, PF 03/24/2021,08/05/2020,07/15/2020 Influenza High-Dose Quadriva lent Preservative Free IM 03/03/2023,04/01/2022,03/13/2021 Influenza High-Dose Trivalen t Preservative Free IM 04/02/2024,03/06/2019 Influenza, Unspecified Formulation 03/06/2020,,04/05/2017 Pneumococcal conjugate PCV13 06/16/2021 Pneumococcal polysaccharide PPSV23 04/01/2020 Family History Medical History Relation Comments Heart attack Brother Prostate cancer Brother No Known Problems Daughter Arthritis Father Overweight Father Parkinson's disease Father Prostate cancer Father Stroke Father Hip fracture Mother Rheumatoid arthritis Mother ALS Sister Alcohol abuse Son Stomach cancer Son Relation Status Comments Brother Daughter Alive Father Maternal Grandfather Maternal Grandmother Mother Paternal Grandfather Paternal Grandmother Sister Son Alive Social History Tobacco Use Types Packs/Day Years Used Date Smoking Tobacco: Former Cigarettes 1 20 1 9 1977 Smokeless Tobacco: Never Tobacco Cessation:Counseling Given: Not Answered Alcohol Use Standard Drinks/Week Comments Never 0 [...] your housing situation today? I have conrado barajas 02/12/2025 How many times have you move [...] AM EST Sexual Orientation Not on file Last Filed Vital Signs Vital Sign Reading Time Taken Comments Blood Pressure 134/70 02/18/2025 3:48 PM EDT Pulse 78 02/18/2025 3:48 PM EDT Temperature 36.1 C (97 F) 02/18/2025 3:48 PM EDT Respiratory Rate 18 02/12/2025 10:37 AM EDT Oxygen Saturation 96% 02/18/2025 3:48 PM EDT Inhaled Oxygen Concentration - - Weight 74.4 kg (164 lb) 03/15/2025 3:16 PM EDT Height 157.5 cm (5' 2 ) 03/15/2025 3:16 PM EDT Body Mass Index 30 03/15/2025 3:16 PM EDT Plan of Treatment Upcoming Encounters Date Type Department Care Team ([facility] st Contact Info) Description 04/09/2025 3:20 PM EST Office Visit [facility] 14 [facility] [address] [place] [address] Fabienne Villasenor, STORE GIFT WRAP ASSOCIATE 14 [facility] [address] [place] [address] Health Maintenance Due Date Last Done Comments Adult Td,Tdap Booster 1940 INFLUENZA VACCINE (#1) 2025 , 03/03/2023, 03/03/2023, Additional history exists DEPRESSION SCREENING 07/03/2025 07/03/2024 RSV VACCINE (1 - 1-dose 75+ series) 07/03/2025 Postponed from 2016 (Patient Declines / Guardian Declines) ZOSTER VACCINES (1 of 2) 07/03/2025 Pos tponed from 1960 (Patient Declines / Guardian Declines) BLOOD PRESSURE 08/18/2025 02/18/2025 CREATININE LEVEL 02/12/2026 02/12/2025, 11/2024, 01/19/2024, Additional history exists POTASSIUM LEVEL 02/12/2026 02/12/2025, 03/0 11/2024, 01/19/2024, Additional history exists OSTEOPOROSIS SCREENING INITIAL (ONE-TIME) 04/01/2030 Postponed from 2006 (Patient Declines / Guardian Declines) PNEUMOCOCCAL VACCINES (50+ years) Completed 06/16/2021, 04/01/2020 HEPATITIS A VACCINES Aged Out No long er eligible based on patient's age to complete this topic HIB VACCINES Aged Out No longer eligi ble based on patient's age to complete this topic MENINGOCOCCAL VACCINES (ACWY) Aged Out No longer eligible based on patient's age to complete this topic MENINGOCOCCAL VACCINES (B) Aged Out N o longer eligible based on patient's age to complete this topic Medical Devices Not on file Procedures Procedure Name Priority Date/Time Associated Diagnosis Comments MRI LUMBAR SPINE (NEURO) WITHOUT CONTRAST Routine 03/18/2025 9:23 PM EDT Chronic bilateral low back pain with bilateral sciatica D-DIMER STAT 02/12/2025 12:01 PM EDT TROPONIN STAT 02/12/2025 11:01 AM EDT XR CHEST PA AND LATERAL 2 VIEWS Routine 02/12/2025 10:10 AM EDT US BEDSIDE Routine 02/12/2025 9:45 AM EDT NT-PROBNP STAT 02/12/2025 9:42 AM EDT TROPONIN STAT 02/12/2025 9:42 AM EDT LIPASE STAT 02/12/2025 9:42 AM EDT LFTS (HEPATIC PANEL) STAT 02/12/2025 9:42 AM EDT BASIC METABOLIC PANEL STAT 02/12/2025 9:42 AM EDT CBC AND DIFFERENTIAL STAT 02/12/2025 9:42 AM EDT ECG 12-LEAD STAT 02/12/2025 9:06 AM EDT from Last 3 Months Results * MRI LUMBAR SPINE (NEURO) WITHOUT [...] moderate spinal canal stenosis. Moderate right and ungy-bj-qzoirbnh left foraminal stenosis. L2-L3: Disc bulge. Left [...] not completely characterized in this exam. Additional [id number] or possibly cyst on the right kidney [...] to moderatespinal canal stenosis. Moderate right and hpwo-aq-wqyvecqu left foraminalstenosis. L2-L3: Disc bulge. Left central/subarticular [...] levels, as above. 3. Probable renal cysts. us Fabienne Villasenor [facility] MR ALEKSEY hackett Result * D-dimer (02/12/2025 12:01 PM EDT) D-DIMER 329 <500 ng/mL [facility] Comment:In patients with low to moderate pre-test probability scores for VTE (PE or DVT), a D-Dimer cut-off less than 500 ng/mL ([facility]) has a negative predictive value (NPV) of 97 to 100%. Blood 02/12/2025 12:0 1 PM EDT 02/12/2025 12:14 PM EDT us Arpit Valdez PA-C LAB BLOOD ORDERABLES Final Res ult [address] [address] * Troponin (02/12/2025 11:01 AM EDT) Only the most recent of2 resultswithin the time period is included. Troponin-T, HS Gen5 9 0 - 9 ng/L [facility] Blood 02/12/2025 11:0 1 AM EDT 02/12/2025 11:13 AM EDT us Arpit Valdez PA-C LAB BLOOD ORDERABLES Final Res ult [facility] [address] [place] [address] * XR CHEST PA AND LATERAL 2 VIEWS (02/12/2025 10:10 AM EDT) Anatomical Region Laterality Modality Chest Computed Radiogr aphy 02/12/2025 10:2 2 AM EDT Impressions 02/12/2025 10:32 AM EDT No acute abnormality. ATTESTATION: I, Teresa Eugene as teaching physician, have reviewed the images for this case and if necessary edited the report originally created by Olegario Osborne. Narrative 02/12/2025 10:32 AM EDT XR CHEST PA AND LATERAL 2 VIEWS Referring clinician's provided indication for this examination in Epic: Pain COMPARISON: XR CHEST PA AND LATERAL 2 VIEWS ; CT ABDOMEN/PELVIS WITH CONTRAST FINDINGS: Devices/Tubes/Lines: None. Lungs: No new focal consolidation or pulmonary edema. Similar linear opacities at the left lung base, likely represents scarring/atelectasis. Similar hazy opacities in the medial right lower lobe, correlates with the periosteophyte subpleural reticulations in the prior CT abdomen from 12/28/2021. Pleura: No pleural effusion or pneumothorax. Heart/Mediastinum: Normal heart size. Thoracic aortic calcifications. Bones/Soft Tissues: Degenerative changes of the spine. Procedure Note Teresa Eugene MD - 02/12/2025 XR CHEST PA AND LATERAL 2 VIEWS Referring clinician's provided indication for this examination in Epic:Pain COMPARISON: XR CHEST PA AND LATERAL 2 VIEWS ; CT ABDOMEN/PELVISWITH CONTRAST FINDINGS: Devices/Tubes/Lines: None. Lungs: No new focal consolidation or pulmonary edema. Similar linearopacities at the left lung base, likely represents scarring/atelectasis.Similar hazy opacities in the medial right lower lobe, correlates with theperiosteophyte subpleural reticulations in the prior CT abdomen from12/28/2021. Pleura: No pleural effusion or pneumothorax. Heart/Mediastinum: Normal heart size. Thoracic aortic calcifications. Bones/Soft Tissues: Degenerative changes of the spine. IMPRESSION: No acute abnormality. ATTESTATION: I, Teresa Eugene as teaching physician, have reviewed theimages for this case and if necessary edited the report originally createdby Olegario Osborne. Arpit Valdez PA-C IMG XR CHEST Final Result * US BEDSIDE (02/12/2025 9:45 AM EDT) Anatomical Region Laterality Modality Ultrasound Narrative 02/12/2025 9:45 AM EDT Rolando Tejada MD 02/12/2025 2:15 PM Bedside Ultrasound Date/Time: 02/12/2025 9:45 AM Performed by: Arpit Valdez PA-C Authorized by: Arpit Valdez PA-C Exam Type: Cardiac Transthoracic Echocardiogram, Aorta and Thoracic Cardiac Transthoracic Echocardiogram Exam Findings & Impression: Indications: patient with chest pain Views: apical four, parasternal long, parasternal short and subxiphoid Pericardial Effusion: the pericardial space was visualized and was negative for a pericardial effusion LV Systolic Function: the heart was visualized with normal LV systolic function RV Size: the heart was visualized with a normal R ventricle size IVC: the IVC was visualized and appeared normal Overall Impression: negative Aorta Exam Findings & Impression: Indications: patient with chest pain Aorta Diameter (cm): the entire abdominal aorta from the SMA to the distal aorta was visualized as less than 3 cm in diameter Iliacs Diameter (cm): The iliacs were visualized as less than 1.5 cm in diameter Overall Impression: negative Thoracic Exam Findings & Impression: Indications: patient with chest pain Right Lung Pleural Effusion: the R chest was visualized and was negative for effusion Left Lung Pleural Effusion: the L chest was visualized and was negative for effusion Right Lung B-Lines: the R chest was visualized and no or few B lines were seen Left Lung B-Lines: the L chest was visualized and no or few B lines were seen Right Lung Consolidation: the R lung was visualized and there was no consolidation Left Lung Consolidation: the L lung was visualized and there was no consolidation Right Lung Sliding: the R chest was evaluated and lung sliding was visualized Left Lung Sliding: the L chest was visualized and lung sliding was visualized Overall Impression: negative Images: Images Saved: Yes Accession Number: [id number] Arpit Valdez PA-C IMG POINT OF CARE EXAMS Final Result * LFTs (hepatic panel) (02/12/2025 9:42 AM EDT) ALKALINE PHOSPHATASE 77 39 - 117 U/L [facility] TOTAL BILIRUBIN 0.5 0.0 - 1.2 mg/dL [facility] DIRECT BILIRUBIN 0.1 0.0 - 0.2 mg/dL [facility] Bilirubin (Indirect) NOT CALCULATED 0 - 1.5 mg/dL [facility] AST 18 0 - 37 U/L [facility] ALT 17 0 - 40 U/L [facility] TOTAL PROTEIN 7.0 6.5 - 8.0 g/dL [facility] ALBUMIN 4.0 3.9 - 4.8 g/dL [facility] GLOBULIN 3.0 1 - 4.8 g/dL [facility] A/G Ratio 1.33 1.00 - 4.80 RATIO [facility] Blood 02/12/2025 9:42 AM EDT 02/12/2025 9:52 AM EDT Arpit Valdez PA-C LAB BLOOD ORDERABLES Final Res ult [facility] [address] [place] [address] * (ABNORMAL) CBC and differential (02/12/2025 9:42 AM EDT) WBC 6.03 4.00 - 11.00 K/uL [facility] RBC 4.25 4.00 - 5.20 M/uL [facility] HGB 13.3 12.0 - 16.0 g/dL [facility] HCT 38.9 36.0 - 46.0 % [facility] PLT 206 150 - 450 K/uL [facility] MCV 91.5 80.0 - 100.0 fL [facility] MCH 31.3(H) 27.0 - 31.0 pg [facility] MCHC 34.2 32.0 - 36.0 g/dL [facility] RDW 12.3 11.5 - 14.5 % [facility] MPV 10.2 8.4 - 12.0 fL [facility] NRBC 0.00 0.00 /100 WBCs [facility] ABSOLUTE NRBC 0.00 0.00 K/uL [facility] DIFF METHOD Auto [facility] NEUTS 51.7 48.0 - 76.0 % [facility] LYMPHS 33.5 18.0 - 41.0 % [facility] MONOS 9.8 4.0 - 11.0 % [facility] EOS 4.1 0.0 - 5.0 % [facility] BASOS 0.7 0.0 - 1.5 % [facility] Granulocytes, immature (%) 0.2 0.0 - 0.9 % [facility] ABSOLUTE NEUTS 3.12 1.92 - 7.60 K/uL [facility] ABSOLUTE LYMPHS 2.02 0.72 - 4.10 K/uL [facility] ABSOLUTE MONOS 0.59 0.16 - 1.10 K/uL [facility] ABSOLUTE EOS 0.25 0.00 - 0.50 K/uL [facility] ABSOLUTE BASOS 0.04 0.00 - 0.15 K/uL [facility] Granulocytes, immature 0.01 0.00 - 0.09 K/uL [facility] Blood 02/12/2025 9:42 AM EDT 02/12/2025 9:52 AM EDT Arpit Valdez PA-C LAB BLOOD ORDERABLES Final Res ult Performing Organization Address [facility]/ZIP Co de Phone Number [address] [address] * NT-proBNP (02/12/2025 9:42 AM EDT) NT-PROBNP 96 0 - 450 pg/mL [facility] Blood 02/12/2025 9:42 AM EDT 02/12/2025 9:52 AM EDT Arpit Valdez PA-C LAB BLOOD ORDERABLES Final Res ult Performing Organization Address [facility]/ZIP Co de Phone Number [address] [address] * Lipase (02/12/2025 9:42 AM EDT) Pathologist [facility] LIPASE 41 16 - 63 U/L [facility] Blood 02/12/2025 9:42 AM EDT 02/12/2025 9:52 AM EDT Arpit Valdez PA-C LAB BLOOD ORDERABLES Final Res ult Performing Organization Address [facility] Co de Phone Number [address] [address] * (ABNORMAL) Basic metabolic panel (02/12/2025 9:42 AM EDT) Pathologist [facility] SODIUM 141 133 - 146 mmol/L [facility] CHLORIDE 104 96 - 108 mmol/L [facility] POTASSIUM 3.5 3.3 - 5.1 mmol/L [facility] CO2 26 21 - 35 mmol/L [facility] BUN 21(H) 6 - 19 mg/dL [facility] CREATININE 0.70 0.5 - 1.5 mg/dL [facility] GLUCOSE 111(H) 70 - 99 mg/dL [facility] CALCIUM 9.6 8.4 - 10.3 mg/dL [facility] EGFR 86 >59 mL/min/1.7 3m2 [facility] Comment:Estimated glomerular filtration rate calculated using the CKD-EPI refit equation. ANION GAP 15 10 - 20 mmol/L [facility] Blood 02/12/2025 9:42 AM EDT 02/12/2025 9:52 AM EDT us Arpit Valdez PA-C LAB BLOOD ORDERABLES Final Res ult Performing Organization Address City/[facility]/ZIP Co de Phone Number [facility] [address] [place] [address] * ECG 12-LEAD (02/12/2025 9:06 AM EDT) Ventricular Rate EKG/MIN 66 BPM [facility] Atrial Rate 66 BPM [facility] NV Interval 190 ms [facility] QRS Duration 80 ms [facility] QT Interval 392 ms [facility] QTC Interval 410 ms [facility] P [place] 72 degrees [facility] R Wave [place] -21 degrees [facility] T Wave [place] 75 degrees [facility] 02/12/2025 9:06 AM EDT 02/12/2025 11:46 AM EDT Narrative [facility] - 02/12/2025 11:47 AM EDT Normal sinus rhythm Possible Left atrial enlargement Cannot rule out Anteroseptal infarct , age undetermined Abnormal ECG No previous ECGs available Confirmed by Praful Portillo ([id number]) on 02/12/2025 11:46:57 AM us Arpit Valdez PA-C ECG ORDERABLES Final Result Performing Organization Address [facility] Co de Phone Number [facility] from Last 3 Months Insurance MEDICARE PART A & B [facility] MEDICARE SUPPLEMENT MEDICARE PART A & B [facility] MEDICARE SUPPLEMENT MEDICARE PART A & B [facility] MEDICARE SUPPLEMENT MEDICARE PART A & B [facility] MEDICARE SUPPLEMENT MEDICARE PART A & B [facility] MEDICARE SUPPLEMENT MEDICARE PART A & B [employer] MEDICARE SUPPLEMENT MEDICARE PART A & B [employer] EXTENSION MEDICARE SUPPLEMENT [facility] MEDICARE SUPPLEMENT MEDICARE PART A & B [employer] [facility] EXTENSION MEDICARE SUPPLEMENT Care Teams Blood Or Blood Bank Technician Relationship Specialty Start Date End Date Fabienne Villasenor CNP [address] [place] [address] [address] [place] [address] [email or web address] PCP - General Internal Medicine 10/16/18 Additional Source Comments The information contained in this document represents components of the legal health record. It is not the complete legal health record.[facility]
--- OUTSIDE RECORDS SUMMARY | 2025-03-21 15:36 | XMS_ITS | Clinical Summary ---
Author Organization [facility] Address [address] [place] [address] Care Team Providers Care Anesthesiology Medical Doctor Name Role Phone Jasper Fairchild MD Primary Care Provider [phone] Surgical History Surgery Date Site/Laterality Comments LUMBAR LAMINECTOMY PROCEDURE: HISTORICAL LUMB LAMINECTOMY Medical History Medical History Date Comments History of lumbar laminectomy DX :History of lumbar laminectomy Essential hypertension DX:Essent ial hypertension Family History Medical History Relation Name Comments No Known Problems Brother No Known Problems Daughter No Known Problems Father No Known Problems Mother No Known Problems Other No Known Problems Sister No Known Problems Son Autoimmune disease Neg Hx Breast cancer Neg Hx Colon cancer Neg Hx Coronary artery disease Neg Hx Diabetes Neg Hx Heart attack Neg Hx Heart failure Neg Hx Hyperlipidemia Neg Hx Hypertension Neg Hx Mental illness Neg Hx Prostate cancer Neg Hx Sleep apnea Neg Hx Thyroid disease Neg Hx Relation Name Status Comments Brother Daughter Father Mother Other Sister Son Social History Tobacco Use Types Packs/Day Years Used Date Smoking Tobacco: Former Smokeless Tobacco: Former Comments Unknown Sex and Gender Information Value Date Recorded Sex Assigned at Not on file Legal Sex Female 6:36 PM EST Gender Identity Not on file Sexual Orientation Not on file Obstetrics History Last Filed Vital Signs Vital Sign Reading Time Taken Comments Blood Pressure - - Pulse - - Temperature - - Respiratory Rate - - Oxygen Saturation - - Inhaled Oxygen Concentration - - Weight 75.8 kg (167 lb) 10/05/2021 12:53 PM EDT Height - - Body Mass Index - - Plan of Treatment Health Maintenance Due Date Last Done Comments DTaP,Tdap,and Td Vaccines (1 - Tdap) 1959 Pneumococcal Vaccine: 50+ Ye ars (1 of 1 - PCV) 1991 Zoster Vaccines (1 of 2) 1991 RSV Immunization Adult Patie nts (1 - 1-dose 75+ series) 2016 Depression Screening 06/05/2024 COVID-19 Vaccine ( - 2023-2 5 season) 2025 Influenza Vaccine (#1) 2025 HIB Vaccines Aged Out No longer eligi ble based on patient's age to complete this topic HPV Vaccines Aged Out No longer eligi ble based on patient's age to complete this topic Hepatitis A Vaccines Aged Out No long er eligible based on patient's age to complete this topic Hepatitis B Vaccines Aged Out No long er eligible based on patient's age to complete this topic IPV Vaccines Aged Out No longer eligi ble based on patient's age to complete this topic MMR Vaccines Aged Out No longer eligi ble based on patient's age to complete this topic Meningococcal ACWY Vaccine Aged Out N o longer eligible based on patient's age to complete this topic Meningococcal B Vaccine Aged Out No l onger eligible based on patient's age to complete this topic RSV Immunization Patients Un ainsley 20 months Aged Out No longer eligible b ased on patient's age to complete this topic Varicella Vaccines Aged Out No longer eligible based on patient's age to complete this topic Care Teams Anesthesiology Medical Doctor Relationship Specialty Start Date End Date Jasper Fairchild MD 14 [facility] [address] [place] [address] PCP - General Internal Medicine 02/25/20
--- OUTSIDE RECORDS SUMMARY | 2025-03-21 15:36 | XMS_ITS | Encounter Summary ---
Author Organization [facility] Address [address] [place] [address] Phone Care Team Providers Care Doctor Of Dental Medicine Name Role Phone Fabienne Villasenor CNP Primary Care Provider Jasper Fairchild MD Unavailable [phone] Encounter Details Date Type Department Care Team ([facility] Contact Info) Description 08/13/2019 Procedure Pass [facility], [address] [address] Social History Tobacco Use Types Packs/Day Years [...] - Inhaled Oxygen Concentration - - Weight 74.8 kg (165 lb) 08/14/2019 3:39 PM EDT Height 157.5 cm (5' 2 ) 08/14/2019 3:39 PM EDT Body Mass Index 30.18 08/14/2019 3:39 PM EDT documented in this encounter Plan of Treatment Upcoming Encounters Date Type Department Care Team ([facility] Contact Info) Description 04/09/2025 3:20 PM EST Office Visit [facility] [facility] 14 [facility] [address] [place] [address] Fabienne Villasenor CNP [address] [address] [email or web address] documented as of this encounter Visit Diagnoses [...] documented as of this encounter Care Teams Doctor Of Dental Medicine Relationship Specialty Start Date End Date Fabienne Villasenor CNP [address] [address] PCP - General Internal Medicine 10/16/18 Jasper Fairchild MD [address] [address] Insurance Assigned Provider 09/09/23 06/10/24 documented as of this encounter Additional Source Comments The information contained in this document represents components of the legal health record. It is not the complete legal health record.[facility]
--- OUTSIDE RECORDS SUMMARY | 2025-03-21 15:36 | XMS_ITS | Encounter Summary ---
Author Organization [facility] Address [address] [place] [address] [place] [address] Phone Care Team Providers Care Consulting Sme Name Role Phone Fabienne Villasenor CNP Primary Care Provider Jasper Fairchild MD Unavailable [phone] Encounter Details Date Type Department Care Team (Late Contact Info) Description 04/01/2020 Procedure Pass [facility], [address] [address] Social History Tobacco Use Types Packs/Day Years Used Date Smoking Tobacco: Former Cigarettes 1 24 06 989 1977 Smokeless Tobacco: Never Alcohol Use Standard [...] Office Visit [facility] Internal Medicine 14 [facility] [address] [place], [place] [phone] Fabienne Villasenor CNP 14 [facility] [address] [place] [address] documented as of this encounter Visit Diagnoses [...] documented as of this encounter Care Teams Consulting Sme Relationship Specialty Start Date End Date Fabienne Villasenor CNP 14 [facility] [address] [place] [address] [email or web address] PCP - General Internal Medicine 10/16/18 Jasper Fairchild MD 14 [facility] [address] [place] [phone] [email or web address] Insurance Assigned Provider 09/09/23 06/10/24 documented as of this encounter Additional Source Comments The information contained in this document represents components of the legal health record. It is not the complete legal health record.[facility]
== END 2025-03-21 14:47 | disposition home or self-care (01) ==
LOC: HO.HNS 13:00
PROVIDERS: Visit Provider Physician Assistant
DX: M48.061 Spinal stenosis, lumbar region without neurogenic claudication (principal)
CPT/HCPCS: 99204

== ENCOUNTER → 2025-03-21 13:00 | Outpatient (BNVA) | payer MEDICARE, OTHER, SELFPAY | PROVIDERS: Visit Provider Physician Assistant | DX: M48.061 Spinal stenosis, lumbar region without neurogenic claudication (principal); M54.50 Low back pain, unspecified; Z87.39 Personal history of other diseases of the musculoskeletal system and connective tissue; Z98.890 Other specified postprocedural states | CPT/HCPCS: 99202 ==

== ENCOUNTER 2025-04-11 10:49 | Outpatient (AMB) | payer MEDICARE, OTHER, SELFPAY ==
--- OUTSIDE RECORDS SUMMARY | 2025-04-09 15:20 | XMS_ITS | Encounter Summary ---
Author Organization [facility] Address [address] [place] [address] [place] [address] Phone Care Team Providers Care Senior Business Development Manager Name Role Phone Fabienne Villasenor CNP Primary Care Provider Reason for Visit * Reason Comments Follow Up Visit 7 weeks, keeps falli ng/ tripping. Fell yesterday. Encounter Details Date Type Department Care Team ([facility] st Contact Info) Description 04/09/2025 3:20 PM EST Office Visit [facility] [place] [facility] 14 [facility] [address] [place] [address] Fabienne Villasenor CNP 14 [facility] [address] [place] [address] [phone] [email or web address] Multilevel degenerative disc disease (Primary Dx); Spinal stenosis of lumbar region with neurogenic claudication; Fall in home, subsequent encounter; Essential hypertension; Need for prophylactic vaccination and inoculation against influenza Social History Tobacco Use Types Packs/Day Years Used Date Smoking Tobacco: Former Cigarettes 1 20 1 519 - 1977 Smokeless Tobacco: Never Alcohol Use [...] Sign Reading Time Taken Comments Blood Pressure 138/72 04/09/2025 3:26 PM EST Pulse 79 04/09/2025 3:26 PM EST Temperature 36.4 C (97.5 F) 04/09/2025 3:26 PM EST Respiratory Rate - - Oxygen Saturation 96% 04/09/2025 3:26 PM EST Inhaled Oxygen Concentration - - Weight 76.6 kg (168 lb 12.8 oz) 04/09/2025 3:26 PM EST Height - - Body Mass Index 30.87 03/15/2025 3:16 PM EDT documented in this encounter Progress Notes * Fabienne Villasenor, CDL BULK DRIVER - 04/09/2025 3:20 PM EST SUBJECTIVE: Karen Fuller is a 84 y.o. female, presents to the office for follow up. Patient reports that things continue to be very difficult regarding her health and her 's cognitive decline. She has continued to struggle particularly with her back issues. She had an MRI last month which showed extensive degenerative disc disease and facet joint arthropathy at multiple levels, with canal stenosis, moderate at multiple levels. Multilevel foraminal stenosis severe at multiple levels. She was seen by CHAVA Ventura at [facility], who suggested surgical intervention. She has a follow up appointment with Dr. Mc to discuss this further. She reports that she continues to feel numbness in her right buttock which she describes as a sensation like she is sitting on pin cushions,with pain in the buttock and radiating down the inside/back of the thigh with times of pain extending down to her toes. She has been much more limited in her usual activities due to the pain. She hasalso been catching her right foot on the floor or on the ground if it is at all uneven; she had a fall two days ago when she tripped by catching her right foot on the floor. She ended up knocking over a glass top table when she fell, which ended up shattering but she, thankfully, did not hit the table. She landed on her left side. She did have some difficulty getting herself off the floor and hasfelt that she strained her shoulder getting up. She is having a little bit of left knee pain but overall she does not feel that she has injured herself from the fall. She denies any swelling, redness, or heat of the knee, or any issues with bearing weight on the left knee. The past medical, family and social history have been reviewed for this patient today and updates have been made as needed. OBJECTIVE: BP 138/72 (BP Location: Right arm, Patient Position: Sitting, Cuff Size: Medium) Pulse 79 Temp 36.4 ??C (97.5 ??F) (Skin) Wt 76.6 kg (168 lb 12.8 oz) SpO2 96% BMI 30.87 kg/m?? General appearance: alert, appears stated age and cooperative Head: Normocephalic, without obvious abnormality, atraumatic Eyes: PERRL, EOMs intact Neck: no adenopathy, no carotid bruit, no JVD Lungs: clear to auscultation bilaterally and regular breathing rate and effort Chest wall: no tenderness Heart: regular rate and rhythm, S1, S2 normal, no murmur, click, rub or gallop Abdomen: soft, non-tender; bowel sounds normal; no masses, no organomegaly Musculoskeletal: no obvious deformity or discoloration, no joint swelling, redness, or heat noted Extremities: extremities normal, atraumatic, no cyanosis or edema Pulses: 2+ and symmetric Skin: Skin color, texture, turgor normal. No rashes or lesions Psych: calm and cooperative, normal affect and speech, good eye contact ASSESSMENT/PLAN: 1. Multilevel degenerative disc disease (Primary) Recent MRI showing degenerative disc disease, facet joint arthropathy at multiple levels, canal stenosis, and multilevel foraminal stenosis severe. Patient with worsening right buttock and radicular symptoms over the past 6 months. She recent reconnected with [facility], with possible surgical intervention. Patient has another appointment later this week with Dr. Mc. F/u in officeas needed. 2. Spinal stenosis of lumbar region with neurogenic claudication As above 3. Fall in home, subsequent encounter Patient had fall at home two days ago, which sounds to be related to catching right foot on the floor which may be consequence of worsening lumbar radiculopathy. Patient has a sore left shoulder fromgetting herself up and left knee from fall, but no significant injuries identified. F/u as needed 4. Essential hypertension Stable on current therapies. Continue current regimen. 5. Need for prophylactic vaccination and inoculation against influenza - Influenza Vaccine (65yo up) High-Dose Trivalent Preservative Free IM documented in this encounter Plan of Treatment Upcoming Encounters Date Type Department Care Team (Late st Contact Info) Description 07/09/2025 1:00 PM EST Office Visit [facility] [place] [facility] 14 [facility] [address] [place] [address] Fabienne Villasenor CNP 14 [facility] [address] [place] [address] [email or web address] documented as of this encounter Visit Diagnoses Diagnosis Multilevel degenerative disc disease- Primary Spinal stenosis of lumbar region with neurogenic claudication Fall in home, subsequent encounter Essential hypertension Unspecified essential hypertension Need for prophylactic vaccination and inoculation against influenza documented in this encounter Additional Health Concerns Assessment Noted Time PHQ-2 Depression Total Score: 0 07/03/19 25 1:10 PM EST documented as of this encounter Care Teams Senior Business Development Manager Relationship Specialty Start Date End Date Fabienne Villasenor CNP [address] [address] [email or web address] PCP - General Internal Medicine 10/16/18 documented as of this encounter Additional Source Comments The information contained in this document represents components of the legal health record. It is not the complete legal health record.[facility]
--- NOTE | 2025-04-11 11:23 | A.SPINEOV_ITS ---
Intake Visit Reasons: Discuss sx Intake Note: Ms. Fuller is here today to Discuss Surgery. Diffuser Operator Required: No Allergies Sulfa (Sulfonamide Antibiotics) Allergy (Unknown, Verified 04/11/25 11:28) Hallucinations Narcotics Allergy (Severe, Uncoded 03/21/25 13:11) Hallucinations Assessment & Plan Assessment & Plan (1) Lumbar stenosis: Code(s): M48.061 - Spinal stenosis, lumbar region without neurogenic claudication Category: Medical Plan Mrs Fuller came back in today to review her surgery. Please refer to my last note for the specifics of her problem. She had her MRI done at [facility]. She is due to undergo a right L4-5, right L5-S1 and right L5 foraminotomy with Dr. Mc. He and I both sat down with the patient and discuss the procedure at length including risks, benefits. We have tentatively set a date for June 11. She is very sensitive narcotics and wanted to reinforced to us the need to be very cautious with any medications postoperatively. We think the best instructions here would be just to take Tylenol and Motrin after surgery just to avoid the risk of delirium. We will talk about it again the morning of surgery. The patient was given risk and benefits of surgery including but not limited to infection, hematoma, nerve injury, durotomy, weakness, bowel/bladder injury, persistent pain,. We also discussed the option to continue with conservative treatment and patient wishes to proceed with surgery. They are aware they should stop NSAIDs 7 days prior to surgery. All questions were answered to the best of our ability. If there is anything about this patients medical history that we have overlooked or concerns you have about us proceeding with surgery we would appreciate any input you can offer Total amount of time spent in this visit was 20 minutes in discussion of symptoms, lumbar imaging results and subsequent plan of care Pratik Mc MD,PhD [facility] Coding Level of Care Code Est Pt Level 3 (55976) Diagnoses Lumbar stenosis M48.061
--- OUTSIDE RECORDS SUMMARY | 2025-04-11 12:49 | XMS_ITS | Encounter Summary ---
Author Organization [facility] Address [address] [place] [address] [place] [address] Phone Care Team Providers Care Fleet Maintenance Manager Name Role Phone Fabienne Villasenor CNP Primary Care Provider Jasper Fairchild MD Unavailable [phone] Encounter Details Date Type Department Care Team (Late Contact Info) Description 04/08/2020 Ancillary Orders [facility],Outside Imaging [address] [place] [address] System, Provider Not In, [place] [address] Social History Tobacco Use Types Packs/Day Years Used Date Smoking Tobacco: Former Cigarettes 1 20 1 232 - 5005 Smokeless Tobacco: Never Alcohol Use Standard Drinks/Week [...] Department Care Team (Late Contact Info) Description 07/09/2025 1:00 PM EST Office Visit [facility] Internal Medicine 14 [facility] [address] [place], [place] [phone] Fabienne Villasenor CNP 14 [facility] [address] [place], [place] [phone] documented as of this encounter Results * [...] documented as of this encounter Care Teams Fleet Maintenance Manager Relationship Specialty Start Date End Date Fabienne Villasenor CNP [address] [place] [address] [address] [place] [address] PCP - General Internal Medicine 10/16/18 Jasper Fairchild MD [address] [place] [address] [address] [place] [address] Insurance Assigned Provider 09/09/23 06/10/24 documented as of this encounter Additional Source Comments The information contained in this document represents components of the legal health record. It is not the complete legal health record.[facility]
--- OUTSIDE RECORDS SUMMARY | 2025-04-11 12:49 | XMS_ITS | Encounter Summary ---
Author Organization [facility] Address [address] [place] [address] Phone Care Team Providers Care Choir Singer Name Role Phone Fabienne Villasenor CNP Primary Care Provider Jasper Fairchild MD Unavailable [phone] Encounter Details Date Type Department Care Team (Latest Contact Info) Description 07/23/2020 Transcribe Orders Virtual Department [address] [place] [address] Terrell Mccall MD [address] [place] [address], [place] [address] [email or web address] Malignant neoplasm of urinary bladder, unspecified site (Primary Dx) Social History Tobacco Use Types Packs/Day Years Used Date Smoking Tobacco: Former Cigarettes 1 24 06 268 - 8565 Smokeless Tobacco: Never Alcohol Use Standard Drinks/Week [...] Description 07/09/2025 1:00 PM EST Office Visit [facility] 14 [facility] [address] [place] [address] Jacklyn Fabienne Carmichael, METAL COATER 14 [facility] [address] [place] [address] [email or web address] documented as of this encounter Results * [...] metastatic disease or hydronephrosis. Terrell Mccall MD [facility] Final Result documented in this [...] documented as of this encounter Care Teams Choir Singer Relationship Specialty Start Date End Date Fabienne Villasenor CNP 14 [facility] [address] [place] [address] [email or web address] PCP - General Internal Medicine 10/16/18 Jasper Fairchild MD 14 [facility] [address] [place] [address] [email or web address] Insurance Assigned Provider 09/09/23 06/10/24 documented as of this encounter Additional Source Comments The information contained in this document represents components of the legal health record. It is not the complete legal health record.[facility]
--- OUTSIDE RECORDS SUMMARY | 2025-04-11 12:49 | XMS_ITS | Encounter Summary ---
Author Organization [facility] Address [address] [place] [address] Phone Care Team Providers Care Industrial X Ray Operator Name Role Phone Fabienne Villasenor CNP Primary Care Provider Jasper Fairchild MD Unavailable [phone] Encounter Details Date Type Department Care Team (Late Contact Info) Description 07/29/2020 Procedure Pass OR Admitting Dept - Virtual Department [address] [place] [address] Social History Tobacco Use Types Packs/Day Years Used Date Smoking Tobacco: Former Cigarettes 1 24 06 459 1977 Smokeless Tobacco: Never Alcohol Use Standard [...] 07/09/2025 1:00 PM EST Office Visit [facility] [place] [facility] 14 [facility] [address] [place], [place] [phone] Fabienne Villasenor CNP 14 [facility] [address] [place] [address] documented as of this encounter Visit Diagnoses [...] documented as of this encounter Care Teams Industrial X Ray Operator Relationship Specialty Start Date End Date Fabienne Villasenor CNP 14 [facility] [address] [place] [address] [email or web address] PCP - General Internal Medicine 10/16/18 Jasper Fairchild MD 14 [facility] [address] [place] [address] [email or web address] Insurance Assigned Provider 09/09/23 06/10/24 documented as of this encounter Additional Source Comments The information contained in this document represents components of the legal health record. It is not the complete legal health record.[facility]
--- OUTSIDE RECORDS SUMMARY | 2025-04-11 12:49 | XMS_ITS | Data Portability ---
Author Organization [facility] Alon Re[facility], [facility] Address [address] [place] [address] Care Team Providers Care Pastry Supervisor Name Role Phone NEREIDA GOTTLIEB Referring Provider Assessment Encounter Date Assessment Date Assessment LastModified by Organization Details LastModified Time 09/22/2023 09/22/2023 Imaging: Imaging ordered, independently reviewed and interpreted by Brennen Almonte MD reveals the following findings: XR Hip Left hip: Two views of the hip were obtained including AP pelvis and groin lateral views. Status post hip surgery: Status post EMLO with no evidence of complication, well fixed, well aligned, and located. There is good yazidi of leg length and offset without loosening or migration. Impression: Status post left anterior total hip arthroplasty, 6 weeks out Plan: The patient is doing well, continue activities as tolerated. Follow up with repeat radiographs in 1 year, or sooner if problems arise. [email or web address] Not available 09/22/2023 16:41:15 11/04/2024 11/04/2024 Reviewed patient's imaging and exam findings in detail with her. Discussed that she has some mild underlying right hip osteoarthritis but I do not feel that this is the origin of her symptoms. She has focal tenderness over the greater trochanteric bursa and pain when she lies on her side at night. For this I recommend trochanteric bursal injection. However her primary symptoms are posterior and most consistent with hamstring strain and sciatica of the right lower extremity. She does describe numbness and tingling which at times can extend to her feet. Recommended initiation of Medrol Dosepak accompanied by physical therapy for soft tissue modalities, hamstring stretching and other exercises as indicated to reduce inflammation and improve mobility. I will like her to follow-up with me in 2 months for clinical reevaluation. She agrees. Hopefully the troch bursa will give her some immediate relief with the steroid taper and PT providing more detention relief for her sciatica related symptoms. All questions and concerns were addressed and answered. [email or web address] Not available 11/04/2024 10:08:13 Plan of Treatment Reminders Order Date Submit Date Provider Last Modified By Organization Details Last Modified Time Details Appointments None recorded. Lab None recorded. Referral physical therapist referral - hamstring strain, stretching , strengthen ing, rom ,ect 2024 025 [email or web address] Not available 11:20:27 Procedures None recorded. Surgeries None recorded. Imaging XR, hip + pelvis, unilateral , 2 or 3 view - new eval right hip pain room 3 2024 025 [email or web address] [facility] Office, [address], [address], [place], [address], 5 11:20:27 XR, hip, unilateral , 2 or 3 view - rm 203. 2V 2ed PO L THR AB 2023 024 [email or web address] [facility], [address], [address], [place], [address], 4 16:38:43 XR, hip + pelvis, unilateral , 1 view 2023 024 [email or web address] Not available 4 09:17:40 Medication Orders Medrol (Piero) 4 mg tablets in a dose pack 2024 025 [email or web address] [id number], [address] [place], [address], 5 11:20:27 Patient TargetsNo targets recorded. Patient InstructionsNo instructions recorded. Reason for Referral Physical Therapist Referral for Pain of hip region hamstring strain, stretching, strengthening, rom ,ect Referring Physician: Aimee Orosco, Orthopedic Surgery, Encounter Date: 11/04/2024 Results Created Date Observation Date Name Description Value Unit Range Abnormal Flag Note LastModifiedBy Organization Detail LastModifiedTime 02/02/20 24 08/09/2023 imagi ng/di agnos tic resul t No observ ation record ed. [email or web address] Not Available 01/05 03:34:32 02/02/20 24 08/09/2023 imagi ng/di agnos tic resul t No observ ation record ed. [email or web address] Not Available 01/05 03:34:33 11/05/19 25 11/04/2024 XR, hip + pelvi s, unila teral , 2 or 3 view http:/ [email or web address] ?Encry pted=s hAaTro YD8dLq bEUv6g %2BXZw aYqtaq 0bqfl% 2Fg9IQ a4ajBk vP9nXo QUaueC m3YtLR FvZlgJ JJ8mAn HZtai3 3k2909 AC0Kla 3WEVaG nKiQtr MwF INTERFACE [facility] [address] [facility] [address], [place], [address], 11/04/2024 09:37:50 11/05/19 25 11/04/2024 XR, hip + pelvi s, unila teral , 2 or 3 view http:/ [email or web address] ?Encry pted=s hAaTro YD8dLq bEUv6g %2BXZw aYqtaq 0bqfl% 2Fg9IQ a4ajBk vP9nXo QUaueC m3YtLR FvZl JJ8mAn HZtai3 6v3265 AC0Kla 3WEVaG nKiQtr MwF INTERFACE [facility] [address], [place], [address], 11/04/2024 09:37:52 Result Notes Documentation Provider Name and Address Organization Details Recorded Time Xr, Hip + Pelvis, Unilateral, 2 Or 3 View : [email or web address] Encrypted=lxSyAmuJJ7gIkjB Uv6g%0VCIwcPcqtu6jfdk%2Fg 5CHo4dgGgbM0iIiMXwbbXd9Bj EHVqKchZWS0xIdPAfyb63b817 0CS6Ekd8EVCgTkQoCzjKbJ Not Available [facility] 11/04/2024 09:37: 51 Xr, Hip + Pelvis, Unilateral, 2 Or 3 View : [email or web address] 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 1757646760996 105 Active 2023 Brennen Almonte MD [address], [place], [address] , [facility] 4 16:41:14 Pain of hip region 69235057 Active 2024 JT ARELLANO [facility] 5 09:30:58 Trochanter ic bursitis of right hip 7475514352668 00 Active 2024 Aimee Orosco PA-C [address], [place], [address] , [facility] 5 10:05:53 Injury of thigh 3604842 Active 2024 Aimee Orosco PA-C [address], [place], [address] , [facility] 5 10:06:09 Problem Notes None recorded. Procedures Surgical History Date Name Laterality Status Provider Name and Address Organization Details Recorded Time 5 JZHip Inj completed Aimee Orosco PA-C [address], [place], [address], [facility] 11/04/2024 10:05:27 Spine Surgery completed KAYLIA L'HEUREUX [facility] 11/04/2024 09:30:20 Hip Surgery completed KAYLIA L'HEUREUX [facility] 11/04/2024 09:30:20 Imaging Results None recorded. Procedure Notes None recorded. Medical Equipment None Reported. Allergies Allergen ID Allergen Name Allergen Category Reaction Reaction Severity Criticality Documentation Date Start Date Code Code System Note Provider Name and Address Organization Details Recorded Time 993754 Substance with sulfonami de structure and antibacte rial mechanism of action (substanc e) medicatio n Not available Not available Not available 08/25/2023 26147 8003 SNOMED ANGELIA KERRI [facility] 11:28:23 Medications Name Sig Start Date Stop Date Status Note LastModified by Organization Details LastModified Time amoxicillin 500 mg capsule TAKE 4 CAPSULES BY MOUTH ONE HOUR PRIOR TO DENTAL APPOINTME NT active Not Available Not Available No t Available prednisone 10 mg tablet PLEASE SEE ATTACHED FOR DETAILED DIRECTION S 08/24 completed Not Available Not Available Not Available atorvastati n 20 mg tablet TAKE 1 TABLET BY MOUTH EVERY DAY active Not Available Not Available No t Available meclizine 12.5 mg tablet TAKE 1 TABLET BY MOUTH 3 TIMES A DAY NEEDED FOR DIZZINESS . active Not Available Not Available No t Available amlodipine 2.5 mg tablet TAKE 1 TABLET BY MOUTH EVERY DAY active Not Available Not Available No t Available tramadol 50 mg tablet TAKE 1 TO 2 TABLETS BY MOUTH EVERY 6 HOURS NEEDED FOR MILD PAIN. DO NOT EXCEED 8 TABLETS (400MG) PER DAY. 08/24 completed Not Available Not Available Not Available doxycycline monohydrate 100 mg capsule TAKE 2 CAPSULES BY MOUTH ONCE FOR 1 DOSE. active Not Available Not Available No t Available pantoprazol e 40 mg tablet,les yed release TAKE 1 TABLET BY MOUTH EVERY DAY active Not Available Not Available No t Available erythromyci n 5 mg/gram (0.5 %) eye ointment PLACE 1/2 INCH INTO RIGHT EYE 4 TIMES A DAY FOR 7 DAYS active Not Available Not Available No t Available nystatin 100,000 unit/gram topical cream APPLY TO AFFECTED AREA TWICE A DAY FOR 10 DAYS active Not Available Not Available No t Available methylpredn isolone 4 mg tablets in a dose pack TAKE 6 TABLETS ON DAY 1 DIRECTED ON PACKAGE AND DECREASE BY 1 TAB EACH DAY FOR A TOTAL OF 6 DAYS active Not Available Not Available No t Available losartan 50 mg-hydrochl orothiazide 12.5 mg tablet TAKE 1 TABLET IN THE MORNING AND 1/2 TABLET IN THE EVENING active Not Available Not Available No t Available amoxicillin 875 mg-potassiu m clavulanate 125 mg tablet TAKE 1 TABLET BY MOUTH TWICE A DAY FOR 7 DAYS 08/24 completed Not Available Not Available Not Available oxycodone 5 mg tablet TAKE 1 TABLET BY MOUTH EVERY 4 HOURS NEEDED FOR SEVERE PAIN 08/24 completed Not Available Not Available Not Available cyclobenzap rine 5 mg tablet TAKE 1 TABLET BY MOUTH EVERY 8 HOURS NEEDED FOR SPASM active Not Available Not Available No t Available Eliquis 2.5 mg tablet TAKE 1 TABLET BY MOUTH TWO TIMES A DAY active Not Available Not Available No t Available Vitals Date Recorded Body height Body mass index (BMI) Body weight Provider Name and Address Organization Details Last Updated DateTime 08/25/2023 157.48 cm 29.4 kg/m2 60114.37 g ANGELIA MANNING [facility] 08/25/2023 11:27:06 Date Recorded Body height Body mass index (BMI) Body weight Provider Name and Address Organization Details Last Updated DateTime 09/22/2023 157.48 cm 29.1 kg/m2 20703.19 g ISELA CROWLEY [facility] 09/22/2023 14:38:16 Date Recorded Body height Body mass index (BMI) Body weight Provider Name and Address Organization Details Last Updated DateTime 11/04/2024 157.48 cm 29.1 kg/m2 29504.19 g JT ARELLANO [facility] 11/04/2024 09:30:38 Social History None recorded. Functional Status None recorded. Mental Status None recorded. Family History Nothing Reported. Medical History Condition Response Coronary Artery Disease N Anxiety/Depression N Emphysema N COPD N Pacemaker N Vascular Disease N Heart Trouble N Gastrointestinal Disease N Autoimmune disease N Inflammatory Joint disease N Orthotics N Arthritis Y Blood Clot N Acid Reflux (GERD) N Cancer Y Stroke N Circulation Problems N Rheumatoid Arthritis N Arrhythmia N Headaches N Fibromyalgia N Allergies/Hayfever Y Breathing or lung disorders N Nerve Disorders N Thyroid Problems N Kidney/Bladder Problems Y Anemia N Heart Attack (ID) N Cholesterol N Diabetes N Bleeding Disorder N Seizures/Epilepsy N AIDS/HIV N Congestive Heart Failure (CHF) N Asthma Y Peripheral Vascular Disease N Sleep Apnea N Hepatitis N Heart Disease N Pulmonary Embolism N Hypertension Y Osteoporosis N Gynecological HistoryNo gynecological history recorded. Obstetrics History GPAL:G 0 P 0 0 0 0 Past Encounters Encounter ID Performer Location Encounter Start Date Encounter Closed Date Diagnosis/Indication Diagnosis SNOMED-CT Code Diagnosis ICD10 Code Diagnosis IMO Codes Diagnosis Note [id number] CATARINO Watson [address] [place] [address] 08/25/2023 11:18:33 08/25/2023 16:35:01 Implantation of joint prosthesis 45494977 Z47.1 Hip joint prosthesis present 930528786 Z96.521 [id number] MD Vidal Priest 2[address] floor [address] [place] [address] 09/22/2023 14:21:19 10/12/2023 13:48:44 History of total replacement of left hip joint 0919084140 054291 Z96.631 [id number] Aimee Orosco PA-C [facility] [address] [place] [address] 11/04/2024 09:18:54 11/20/2024 13:11:28 Pain of hip region 82317957 M25.551 621448 Disorder o f right sciatic nerve 7210942595 35913 M54.31 933890 Trochanter ic bursitis of right hip 4053310549 40497 M70.61 6781802 Injury of thigh 2396368 S76.311A 3546792423 Health Concerns Section Related Observation LastModified by Organization Detai ls LastModified Time None Recorded Concern Status LastModified by Organization Details LastModified Time None Recorded Advance Directives Directive None Recorded Payers Insurance Date Sequence Insurance Name Policy Number Policy Galvan Covered Member ID Galvan Member ID Guarantor Name 01/21/2025 1 [place]IC[place]: [employer] Karen Fuller [id number] Karen Fuller 01/20/2025 2 [facility]AN (INDEMNITY) [id number] Karen Fuller [id number] Karen Fuller Notes Date Note Type Note Provider Name and Address Organization Details Recorded Time 08/25/2023 text/html I am seeing the patient today under the supervision of Dr. Almonte who was available but who did not see the patient. HPI: Patient presents for first orthopedic follow-up status post left anterior total hip arthroplasty. Happy with results. No significant complaints of pain. No neurovascular changes. Past family, medical, social history and review of systems has been reviewed, updated, and is located in the patient s chart. Examination: The patient is well appearing and in no apparent distress. Alert and oriented x3. Gait is antalgic on operative side. Examination of the left hip reveals a healing surgical incision. Appropriate postoperative edema. No erythema or drainage. Supple pain-free range of motion. Calf is soft and nontender bilaterally. 4+/5 strength of hip flexion and extension. X-rays performed today at [facility] have been reviewed. Images include an AP pelvis view. Radiographs demonstrate a total joint arthroplasty with good interfaces and alignment. No evidence of any lysis or loosening. No acute fractures appreciated. Impression: Two weeks status post left anterior total hip arthroplasty Plan: Nature of the diagnosis was discussed with the patient today. At this point the patient is doing well. Recommended continued physical therapy to focus on stretching and strengthening exercises. Patient is on Eliquis for DVT prophylaxis. Pain is controlled. We reviewed the signs/symptoms of infection. Follow up as scheduled, sooner if there are any complications. All questions have been answered. [employer] speech recognition coding coordinator software was used to create portions of this document. An attempt at proofreading has been made to minimize errors. Please call for corrections. Sissy Thomson PA-C [address], [place], [address], [facility] 08/25/2023 16:34:52 09/22/2023 text/html ROS as noted in the HPI History of present illness:This patient follows up today and is now 6 weeks out from left anterior total hip arthroplasty. Their pain is well controlled and they are progressing as expected with physical therapy. Able to do current activities without significant difficulty. They have no major complaints at this time and are satisfied with their current state of recovery.Past family, medical, social history and review of systems has been reviewed and updated, and is located in the patient s chart. Brennen Almonte MD [address], [place], [address], [facility] 09/22/2023 16:41:26 11/04/2024 text/html ROS as noted in the HPI I am seeing the patient under the general supervision of Dr. Loza who was available but who did not see the patient. HPI:Patient is a 84 year old female who presents today with chief complaint of right hip pain. She sustained a slip and fall on the ice approximately 2 months ago. She was having some hip pain prior to this fall but became much worse after the fall. She describes pain localized to the low back radiating down the back of her leg into the knee. She has increased pain with sitting which she localizes to the ischial tuberosity. She describes a gnawing pain. She feels like pain has not improved but has worsened over time. 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 Denies any medial groin pain. Feels that the pain is mostly posterior but also has pain to the lateral aspect of the hip which makes her unable to sleep on her side. Also describes increased pain if she bumps it on the counter. DIAGNOSTIC IMAGIN view right hip radiographs were ordered, obtained and independently reviewed by myself during today's visit at [facility] and demonstrate mild to moderate femoral acetabular joint space narrowing noted on the right. No fracture or dislocation. Tiny cam lesion at the femoral head neck junction noted on direct lateral view. Impression:Mild to moderate right hip osteoarthritis Aimee Orosco PA-C [address], [place], [address], [facility] 11/04/2024 10:08:51 OBGyn Episode No OBEpisode recorded.
--- OUTSIDE RECORDS SUMMARY | 2025-04-11 12:49 | XMS_ITS | Encounter Summary ---
Author Organization [facility] Address [address] [place] [address] Phone Care Team Providers Care Dry Kiln Loader Name Role Phone Fabienne Villasenor CNP Primary Care Provider Jasper Fairchild MD Unavailable [phone] Encounter Details Date Type Department Care Team (Late Contact Info) Description 07/02/2022 Ancillary Orders [facility] Internal Medicine [address] [address] Fabienne Villasenor CNP [address] [address] [email or web address] Bilateral hip pain Social History Tobacco Use Types Packs/Day Years Used Date Smoking Tobacco: Former Cigarettes 1 24 06 278 - 9775 Smokeless Tobacco: Never Alcohol Use Standard Drinks/Week [...] Upcoming Encounters Date Type Department Care Team ([facility] Contact Info) Description 07/09/2025 1:00 PM EST Office Visit [facility] Internal Medicine 14 [facility] [address] [place] [address] Fabienne Villasenor, TRAFFIC LAW ATTORNEY 14 [facility] [address] [place] [address] [email or web address] documented as of this encounter Results * [...] PELVIS ; CT ABDOMEN/PELVIS WITH CONTRAST (accession [id number]), XR HIP 2 VW LEFT PLUS PELVIS (accession [id number]) FINDINGS: PELVIS: Pelvic ring intact. No displaced [...] PLUS PELVIS ; CT ABDOMEN/PELVISWITH CONTRAST (accession [id number]), XR HIP 2 VW LEFT PLUSPELVIS (accession [id number]) FINDINGS: PELVIS: Pelvic ring intact. No displaced [...] space narrowing, similar to 2020. Fabienne Villasenor TRAFFIC LAW ATTORNEY IMG XR PELVIS Final Result documented in [...] documented as of this encounter Care Teams Dry Kiln Loader Relationship Specialty Start Date End Date Fabienne Villasenor, ANTONIO [address] [place] [address] [place] [address] PCP - General Internal Medicine 10/16/18 Jasper Fairchild MD [address] [place] [address] [place] [address] Insurance Assigned Provider 09/09/23 06/10/24 documented as of this encounter Additional Source Comments The information contained in this document represents components of the legal health record. It is not the complete legal health record.[facility]
--- OUTSIDE RECORDS SUMMARY | 2025-04-11 12:49 | XMS_ITS | Encounter Summary ---
Author Organization [facility] Address [address] [place] [address] Phone Care Team Providers Care Yarn Handler Name Role Phone Fabienne Villasenor CNP Primary Care Provider Jasper Fairchild MD Unavailable [phone] Reason for Referral * MRI/CAT Scan - Closed Specialty Diagnoses / Procedures Referred By Contac t Referred To Contact Radiology Diagnoses Neck stiffness Weakness Tingling Procedures MRI Cervical Spine Bairon Trevino DO [email or web address] Referral ID Status Reason Start Date Expiration Date Visits Re quested Visits Authorized [id number] Closed 07/18/2019 07/17/2020 1 1 * MRI/CAT Scan - Closed Specialty Diagnoses / Procedures Referred By Contac t Referred To Contact Radiology Diagnoses Tendonosis Procedures MRI Shoulder (Right) Bairon Trevino DO [email or web address] Referral ID Status Reason Start Date Expiration Date Visits Re quested Visits Authorized [id number] Closed 07/18/2019 07/17/2020 1 1 Encounter Details Date Type Department Care Team (Latest Contact Info) Description 07/18/2019 Transcribe Orders [facility] Department [address] [place] [address] Bairon Trevino DO [email or web address] Tingling (Primary Dx); Tendonosis; Neck stiffness; Weakness [...] 07/09/2025 1:00 PM EST Office Visit [facility] Internal Medicine 14 [facility] [address] [place] [address] Fabienne Villasenor, MOBILE NURSE 14 [facility] [address] [place] [address] [email or web address] documented as of this encounter Results * [...] C6-C7. POS - [id number] Bairon Trevino DO [facility] MR XSPECIALTY Fin [...] documented as of this encounter Care Teams Yarn Handler Relationship Specialty Start Date End Date Fabienne Villasenor CNP 14 [facility] [address] [place] [address] [email or web address] PCP - General Internal Medicine 10/16/18 Jasper Fairchild MD 14 [facility] [address] [place] [address] [email or web address] Insurance Assigned Provider 09/09/23 06/10/24 documented as of this encounter Additional Source Comments The information contained in this document represents components of the legal health record. It is not the complete legal health record.[facility]
--- OUTSIDE RECORDS SUMMARY | 2025-04-11 12:49 | XMS_ITS | Encounter Summary ---
Author Organization [facility] Address [address] [place] [address] [place] [address] Phone Care Team Providers Care Senior Java Web Developer Name Role Phone Fabienne Villasenor ANTONIO Primary Care Provider Encounter Details Date Type Department Care Team ([facility] st Contact Info) Description 03/11/2025 Procedure Pass [facility], [facility] [address] [place] [address] Social History Tobacco Use Types Packs/Day Years [...] 07/09/2025 1:00 PM EST Office Visit [facility] [place] [facility] 14 [facility] [address] [place] [address] Fabienne Villasenor CNP 14 [facility] [address] [place] [address] documented as of this encounter Visit Diagnoses Not on filedocumented in this encounter Additional Health Concerns Assessment Noted Time PHQ-2 Depression Total Score: 0 07/03/19 25 1:10 PM EST documented as of this encounter Care Teams Senior Java Web Developer Relationship Specialty Start Date End Date Fabienne Villasenor CNP [address] [place] [address] [address] [place] [address] [email or web address] PCP - General Internal Medicine 10/16/18 documented as of this encounter Additional Source Comments The information contained in this document represents components of the legal health record. It is not the complete legal health record.[facility]
--- OUTSIDE RECORDS SUMMARY | 2025-04-11 12:50 | XMS_ITS | Encounter Summary ---
Author Organization [facility] Address [address] [place] [address] [place] [phone] Phone Care Team Providers Care Physical Chemistry Teacher Name Role Phone Fabienne Villasenor CNP Primary Care Provider Jasper Fairchild MD Unavailable [phone] Encounter Details Date Type Department Care Team (Late Contact Info) Description 05/21/2021 Procedure Pass [facility], [address] [address] Social History Tobacco Use Types Packs/Day Years Used Date Smoking Tobacco: Former Cigarettes 1 24 06 739 1977 Smokeless Tobacco: Never Alcohol Use Standard [...] Description 07/09/2025 1:00 PM EST Office Visit [facility] 14 [facility] [address] [place], [place] [phone] Fabienne Villasenor CNP 14 [facility] [address] [place], [place] [phone] documented as of this encounter Visit Diagnoses [...] documented as of this encounter Care Teams Physical Chemistry Teacher Relationship Specialty Start Date End Date Fabienne Villasenor CNP 14 [facility] [address] [place] [address] [email or web address] PCP - General Internal Medicine 10/16/18 Jasper Fairchild MD 14 [facility] [address] [place] [address] [email or web address] Insurance Assigned Provider 09/09/23 06/10/24 documented as of this encounter Additional Source Comments The information contained in this document represents components of the legal health record. It is not the complete legal health record.[facility]
--- OUTSIDE RECORDS SUMMARY | 2025-04-11 12:50 | XMS_ITS | Encounter Summary ---
Author Organization [facility] Address [address] [place] [address] Phone Care Team Providers Care Roving Can Tender Name Role Phone Fabienne Villasenor CNP Primary Care Provider Jasper Fairchild MD Unavailable [phone] Encounter Details Date Type Department Care Team (Late Contact Info) Description 07/16/2021 Procedure Pass [facility], [address] [address] Social History Tobacco Use Types Packs/Day Years Used Date Smoking Tobacco: Former Cigarettes 1 24 06 859 1977 Smokeless Tobacco: Never Alcohol Use Standard [...] Description 07/09/2025 1:00 PM EST Office Visit [facility] 14 [facility] [address] [place], [place] [phone] Fabienne Villasenor CNP 14 [facility] [place] [facility] [address] [place], [place] [phone] documented as of this encounter Visit Diagnoses [...] documented as of this encounter Care Teams Roving Can Tender Relationship Specialty Start Date End Date Fabienne Villasenor CNP [address] [place] [address] [place] [phone] [email or web address] PCP - General Internal Medicine 10/16/18 Jasper Fairchild MD [address] [place] [address] [place] [phone] Insurance Assigned Provider 09/09/23 06/10/24 documented as of this encounter Additional Source Comments The information contained in this document represents components of the legal health record. It is not the complete legal health record.[facility]
--- OUTSIDE RECORDS SUMMARY | 2025-04-11 12:50 | XMS_ITS | Encounter Summary ---
Author Organization [facility] Address [address] [place] [phone] Phone Care Team Providers Care Student Affairs Vice President Name Role Phone Fabienne Villasenor CNP Primary Care Provider Jasper Fairchild MD Unavailable [phone] Encounter Details Date Type Department Care Team (Late Contact Info) Description 03/23/2022 Procedure Pass [facility] Admitting Dept Virtual Department [address] [place] [phone] Social History Tobacco Use Types Packs/Day Years Used Date Smoking Tobacco: Former Cigarettes 1 24 06 129 1977 Smokeless Tobacco: Never Alcohol Use Standard [...] Upcoming Encounters Date Type Department Care Team ([facility] Contact Info) Description 07/09/2025 1:00 PM EST Office Visit [facility] [place] [facility] 14 [facility] [address] [place] [address] Fabienne Villasenor CNP 14 [facility] [address] [place], [place] [phone] documented as of this encounter Visit Diagnoses [...] documented as of this encounter Care Teams Student Affairs Vice President Relationship Specialty Start Date End Date Fabienne Villasenor CNP 14 [facility] [address] [place] [phone] PCP - General Internal Medicine 10/16/18 Jasper Fairchild MD 14 [facility] [address] [place] [address] [email or web address] Insurance Assigned Provider 09/09/23 06/10/24 documented as of this encounter Additional Source Comments The information contained in this document represents components of the legal health record. It is not the complete legal health record.[facility]
--- OUTSIDE RECORDS SUMMARY | 2025-04-11 12:50 | XMS_ITS | Encounter Summary ---
Author Organization [facility] Address [address] [place] [address] [place] [address] Phone Care Team Providers Care Backhoe Operator Name Role Phone Fabienne Villasenor CNP Primary Care Provider Jasper Fairchild MD Unavailable [phone] Reason for Referral * MRI/CAT Scan - Closed Specialty Diagnoses / Procedures Referred By Roberta du Referred To Contact Radiology Diagnoses Sprain of left ankle, unspecified ligament, initial encounter Procedures MRI Ankle (Left) Bairon Trevino DO [email or web address] Referral ID Status Reason Start Date Expiration Date Visits Re quested Visits Authorized [id number] Closed 04/29/2019 04/28/2020 1 1 Encounter Details Date Type Department Care Team (Latest Contact Info) Description 04/29/2019 Transcribe Orders Virtual Department [address] [place] [address] Bairon Trevino DO [email or web address] Sprain of left ankle, unspecified ligament, initial [...] Description 07/09/2025 1:00 PM EST Office Visit [facility] [place] [facility] 14 [employer] [address] [place] [address] Fabienne Villasenor, TRADE RECRUITER 14 [facility] [address] [place] [address] [email or web address] documented as of this encounter Results * MRI ANKLE WITHOUT CONTRAST (LEFT) (05/12/2019 8:42 AM EST) Anatomical Region Laterality Modality Ankle Left Magnetic Resonan ce 05/12/2019 3:32 PM EST Impressions 05/12/2019 3:58 PM EST Mild edema surrounding the peroneal tendons and focal thickening and abnormal signal in the peroneus longus distally suggesting partial intrasubstance tear. No other ankle pathology is apparent. POS - [id number] Narrative 05/12/2019 3:58 PM EST TECHNIQUE: Exam [...] other ankle pathology is apparent. POS - [id number] Bairon Trevino DO IM MR EXTREMITY Caron [...] documented as of this encounter Care Teams Backhoe Operator Relationship Specialty Start Date End Date Fabienne Villasenor CNP [address] [place] [phone] [email or web address] PCP - General Internal Medicine 10/16/18 Jasper Fairchild MD [address] [place] [address] [address] [place] [address] [email or web address] Insurance Assigned Provider 09/09/23 06/10/24 documented as of this encounter Additional Source Comments The information contained in this document represents components of the legal health record. It is not the complete legal health record.[facility]
--- OUTSIDE RECORDS SUMMARY | 2025-04-11 12:50 | XMS_ITS | Encounter Summary ---
Author Organization [facility] Address [address] [place] [address] [place] [address] Phone Care Team Providers Care Superintendent Meter Tests Name Role Phone Fabienne Villasenor CNP Primary Care Provider Encounter Details Date Type Department Care Team ([facility] st Contact Info) Description 04/10/2025 Orders Only [facility] [place] [facility] 14 [facility] [address] [place], [place] [phone] Fabienne Villasenor CNP 14 [facility] [address] [place], [place] [phone] [email or web address] Mixed hyperlipidemia (Primary Dx); Arteriosclerotic vascular disease; Essential hypertension Social History Tobacco Use Types Packs/Day Years Used Date Smoking Tobacco: Former Cigarettes 1 24 06 [id number] Smokeless Tobacco: Never Alcohol Use Standard Drinks/Week [...] EST Office Visit [facility] [place] [facility] 14 [facility] [address] [place] [address] Fabienne Villasenor, ANTONIO 14 [facility] [address] [place] [address] Scheduled Orders Name Type Priority Associated Diagnoses Orde r Schedule CBC and Differential Lab Routine Arteriosclerotic vascular disease Essential hypertension Expected: 04/10/2025, Expires: 10/08/2025 Comprehensive Metabolic Panel (CMP) Lab Routine Arteriosclerotic vascular disease Essential hypertension Expected: 04/10/2025, Expires: 10/08/2025 Thyroid Stimulating Hormone (TSH) Lab Routine Arteriosclerotic vascular disease Essential hypertension Expected: 04/10/2025, Expires: 04/10/2026 Lipid Panel Lab Routine Mixed hyperlipidemia Arteriosclerotic vascular disease Essential hypertension Expected: 04/10/2025, Expires: 04/10/2026 documented as of this encounter Visit Diagnoses Diagnosis Mixed hyperlipidemia- Primary Arteriosclerotic vascular disease Generalized and unspecified atherosclerosis Essential hypertension Unspecified essential hypertension documented in this encounter Additional Health Concerns Assessment Noted Time PHQ-2 Depression Total Score: 0 07/03/19 25 1:10 PM EST documented as of this encounter Care Teams Superintendent Meter Tests Relationship Specialty Start Date End Date Fabienne Villasenor CNP [address] [place] [address] [address] [place] [address] [email or web address] PCP - General Internal Medicine 10/16/18 documented as of this encounter Additional Source Comments The information contained in this document represents components of the legal health record. It is not the complete legal health record.[facility]
--- OUTSIDE RECORDS SUMMARY | 2025-04-11 12:50 | XMS_ITS | Clinical Summary ---
Author Organization [facility] Address [address] [phone] Care Team Providers Care Sapphire Stylus Grinder Name Role Phone Unavailable Primary Care Provider [...] on patient's age to complete this topic CopiahKaren Personal/Family Self 1940 ([place]) [address] [place] [phone]
--- OUTSIDE RECORDS SUMMARY | 2025-04-11 12:50 | XMS_ITS | Clinical Summary ---
Author Organization [facility] Address [address] [place] [address] Phone Care Team Providers Care Regional Forester Name Role Phone HarshilFabienne simeon BRIQUETTE MACHINE OPERATOR HELPER Primary Care Provider Allergies Active Allergy Reactions Criticality Noted Date Comments Amlodipine Swelling 06/12/2024 Ball 03/08/2022 Fresh fruits [place] 03/08/2022 Fresh fruit [place] 03/08/2022 Fresh fruits Sulfa (Sulfonamide Antibiotics) 10/03 Medications cholecalciferol (VITAMIN D3) 2,000 unit capsule Take 2,000 Units by mouth every other day. Active albuterol 90 mcg/actuation inhalerIndicatio ns:Mild intermittent asthma without complication Inhale 2 puffs into the lungs every 6 (six) hours as needed for wheezing. 6.7 g 1 03/25/20 22 Active losartan-hydroCH LOROthiazide (HYZAAR) 50-12.5 mg per tabletIndication s:Essential hypertension Take 1 tablet in the morning and 1/2 tablet in the evening 180 tablet 3 06/12/19 25 Active pantoprazole (PROTONIX) 40 MG tabletIndication s:Gastroesophage al reflux disease TAKE 1 TABLET BY MOUTH EVERY DAY 90 tablet 1 02/12/20 25 Active atorvastatin (LIPITOR) 20 MG tabletIndication s:Pure hypercholesterol emia, unspecified TAKE 1 TABLET BY MOUTH EVERY DAY 90 tablet 1 02/12/20 25 Active Additional Information Patient not taking.Reason: patient stopped taking 4 days ago., Reported on 04/09/2025 lidocaine (LIDODERM) 5 %Indications:Chr onic bilateral thoracic back pain Place 1 patch onto the skin daily. Remove & Discard patch within 12 hours or as directed by 30 patch 02/19/20 Active Additional Information Patient not taking.Reason: ins wouldnt cover it., Reported on 04/09/2025 acetaminophen (TYLENOL) 650 MG CR tablet Take 650 mg by mouth every 8 (eight) hours as needed for pain (specific location in comments). Active acetaminophen (TYLENOL) 650 MG CR tablet Take 2 tablets by mouth 2 (two) times a day as needed for pain (specific location in comments). Discontin ued(Dupli yolanda order) amoxicillin (AMOXIL) 500 MG capsule Take 2,000 mg by mouth once as needed (prior to dental procedure). Discontin ued(No longer taking) cephalexin (KEFLEX) 500 MG capsule Take 1 capsule (500 mg total) by mouth 2 (two) times a day for 5 days. 10 capsule 03/21/20 Discontin ued(No longer taking) Active Problems Problem Noted Date Diagnosed Date [...] some neighbors. She would benefit from the [facility] Memory Initiatives, she has been provided the [...] 40 mg daily and follow-up if worsening. Dgzm-gnl-ekrsngt therapies occasionally as needed. Assessment & Plan [...] past few months. Will place referral to [facility] for evaluation/vestibular therapy. Continue Meclizine as needed. [...] Will place referral to Dr. Li at [facility] podiatry. Follow-up as needed. Trochanteric [...] orthopedics as planned. Bilateral hip pain 07/01/2020 Assessment & Plan (06/21/2022 6:00 PM EST): [...] physical therapy, but may consider referral to systems support specialist if not improving. Patient will discuss [...] Encounters Date Type Department Care Team Description 04/10/2025 Orders Only [facility] Internal Medicine [address] [address] Fabienne Villasenor CNP Mixed hyperlipidemia (Primary Dx); Arteriosclerotic vascular disease; Essential hypertension 04/09/2025 3:20 PM EST Office Visit [facility] Internal Medicine [address] [address] Fabienne Villasenor CNP Multilevel degenerative disc disease (Primary Dx); Spinal stenosis of lumbar region with neurogenic claudication; Fall in home, subsequent encounter; Essential hypertension; Need for prophylactic vaccination and inoculation against influenza 03/18/2025 8:32 PM EDT - 03/18/2025 11:59 PM EDT Hospital Encounter [address] [address] Fabienne Villasenor CNP Discharge Disposition: Home or Self Care 03/11/2025 Procedure Pass [address] [address] 03/10/2025 Telephone [facility] Internal Medicine [address] [address] Fabienne Villasenor CNP imaging request 02/25/2025 Telephone [facility] Internal Medicine [address] [address] Fabienne Villasenor CNP med not covered 02/19/2025 Telephone [facility] Internal Medicine [address] [address] Berna Jones, kennel attendant Prior Authorization 02/18/2025 3:40 PM EDT Office Visit [facility] Internal Medicine [address] [place] [address] Fabienne Villasenor CNP History of chest pain (Primary Dx); Essential hypertension; Chronic bilateral thoracic back pain; Situational stress 02/14/2025 Telephone [facility] Internal Medicine [address] [place] [address] Susi Guy, KYLE Follow-up 02/12/2025 10:15 AM EDT Ancillary Procedure [address] [address] Arpit Valdez PA-C 02/12/2025 8:55 AM EDT - 02/12/2025 1:54 PM EDT Emergency [facility] Emergency [address] [place] [address] Discharge Disposition: Home or Self Care 02/11/2025 Refill [facility] Internal Medicine [address] [place] [address] Fabienne Villasenor CNP Medication Refill (Pantoprazole and Atorvastatin) 01/21/2025 12:30 PM EDT Office Visit [facility] Internal Medicine [address] [place] [address] Idalia Duffy, JUAN DIEGO Abnormal skin growth (Primary Dx); Essential hypertension from Last 3 Months Immunizations Immunization Administration Dates Next Due COVID-19 (Pre-03/27) Pfizer Vaccine, mRNA, PF 03/24/2021,08/05/2020,07/15/2020 Influenza High-Dose Quadriva lent Preservative Free IM 03/03/2023,04/01/2022,03/13/2021 Influenza High-Dose Trivalen t Preservative Free IM 04/09/2025,04/02/2024,03/06/2019 Influenza, Unspecified Formulation 03/06/2020,,04/05/2017 Pneumococcal conjugate PCV13 [...] Former Cigarettes 1 1977 Smokeless Tobacco: Never Tobacco Cessation:Counseling Given: [...] F) 04/09/2025 3:26 PM EST Respiratory Rate 18 02/12/2025 10:3 7 AM EDT Oxygen Saturation 96% 04/09/2025 3: 26 PM EST Inhaled Oxygen Concentration - - Weight 76.6 kg (168 lb 12.8 oz) 04/09/2025 3:26 PM EST Height 157.5 cm (5' 2 ) 03/15/2025 3:16 PM EDT Body Mass Index 30.87 03/15/2025 3:16 PM EDT Plan of Treatment Upcoming Encounters Date Type Department Care Team (Late st Contact Info) Description 07/09/2025 1:00 PM EST Office Visit [facility] Internal Medicine 14 [facility] [address] [place] [address] Fabienne Villasenor, ANTONIO 14 [facility] [address] [place] [address] Health Maintenance Due Date Last Done Comments Adult Td,Tdap Booster 1940 DEPRESSION SCREENING 07/03/2025 07/03/2024 RSV VACCINE (1 - 1-dose 75+ series) 07/03/2025 Postponed from 2016 (Patient Declines / Guardian Declines) ZOSTER VACCINES (1 of 2) 07/03/2025 Pos tponed from 1960 (Patient Declines / Guardian Declines) BLOOD PRESSURE 10/07/2025 04/09/2025 CREATININE LEVEL 02/12/2026 02/12/2025, 11/2024, 01/19/2024, Additional history exists POTASSIUM LEVEL 02/12/2026 02/12/2025, 03/0 11/2024, 01/19/2024, Additional history exists OSTEOPOROSIS SCREENING INITIAL (ONE-TIME) 04/01/2030 Postponed from 2006 (Patient Declines / Guardian Declines) PNEUMOCOCCAL VACCINES (50+ years) Completed 06/16/2021, 04/01/2020 INFLUENZA VACCINE Completed 04/09/2025, , 03/03/2023, Additional history exists HEPATITIS A VACCINES Aged Out No long er eligible based on patient's age to complete this topic HIB VACCINES Aged Out No longer eligi ble based on patient's age to complete this topic IPV VACCINES Aged Out No longer eligi ble [...] 02/12/2025 9:42 AM EDT BASIC METABOLIC PANEL (BMP) STAT 02/12/2025 9:42 AM EDT CBC AND [...] moderate spinal canal stenosis. Moderate right and whzu-eo-dfwrspjl left foraminal stenosis. L2-L3: Disc bulge. Left [...] not completely characterized in this exam. Additional M0epijrxxqhrjywy or possibly cyst on the right kidney [...] to moderatespinal canal stenosis. Moderate right and rghj-ga-htprbutu left foraminalstenosis. L2-L3: Disc bulge. Left central/subarticular [...] as above. 3. Probable renal cysts. Fabienne Chuaasant BRIQUETTE MACHINE OPERATOR HELPER IMG MR XSPECIALTY Caron hackett Result * D-dimer (02/12/2025 12:01 PM EDT) D-DIMER 329 <500 ng/mL FEU [facility] Comment:In patients with low to moderate pre-test probability scores for VTE (PE or DVT), a D-Dimer cut-off less than 500 ng/mL (FEU) has a negative predictive value (NPV) of 97 to 100%. Blood 02/12/2025 12:0 1 PM EDT 02/12/2025 12:14 PM EDT Arpit Valdez PA-C LAB BLOOD BKR ORDERABLES Final Result [address] [address] * Troponin (02/12/2025 11:01 AM EDT) Only the most recent of2 resultswithin the time period is included. Troponin-T, HS Gen5 9 0 - 9 ng/L [facility] Blood 02/12/2025 11:0 1 AM EDT 02/12/2025 11:13 AM EDT Arpit Valdez PA-C LAB BLOOD BKR ORDERABLES Final Result Performing Organization Address City/[facility]/ZIP Co de Phone Number [address] [address] * XR CHEST PA AND LATERAL 2 VIEWS (02/12/2025 10:10 AM EDT) Anatomical Region Laterality Modality Chest Computed Radiogr aphy 02/12/2025 10:2 2 AM EDT Impressions 02/12/2025 10:32 AM EDT No acute abnormality. ATTESTATION: Teresa Jose as teaching physician, have reviewed the images for this case and if necessary edited the report originally created by Olegario Osborne. Narrative 02/12/2025 10:32 AM EDT XR CHEST PA AND LATERAL 2 VIEWS Referring clinician's provided indication for this examination in [facility]: Pain COMPARISON: XR CHEST PA AND LATERAL [...] clinician's provided indication for this examination in [facility]:Pain COMPARISON: XR CHEST PA AND LATERAL 2 [...] the spine. IMPRESSION: No acute abnormality. ATTESTATION: Teresa Jose as teaching physician, have reviewed theimages for [...] negative Images: Images Saved: Yes Accession Number: [id number] Arpit Valdez PA-C IMG POINT OF CARE EXAMS Final Result * LFTs (hepatic panel) (02/12/2025 9:42 AM EDT) ALKALINE PHOSPHATASE 77 39 - 117 U/L [facility] TOTAL BILIRUBIN 0.5 0.0 - 1.2 mg/dL [facility] DIRECT BILIRUBIN 0.1 0.0 - 0.2 mg/dL [facility] Bilirubin (Indirect) NOT CALCULATED 0 - 1.5 mg/dL [facility] AST 18 0 - 37 U/L [facility] ALT 17 0 - 40 U/L [facility] TOTAL PROTEIN 7.0 6.5 - 8.0 g/dL [facility] ALBUMIN 4.0 3.9 - 4.8 g/dL [facility] GLOBULIN 3.0 1 - 4.8 g/dL [facility] A/G Ratio 1.33 1.00 - 4.80 RATIO [facility] Blood 02/12/2025 9:42 AM EDT 02/12/2025 9:52 AM EDT Arpit Valdez PA-C LAB BLOOD BKR ORDERABLES Final Result [facility] [address] [place] [address] * (ABNORMAL) CBC and differential (02/12/2025 9:42 AM EDT) Pathologist [facility] WBC 6.03 4.00 - 11.00 K/uL [facility] RBC 4.25 4.00 - 5.20 M/uL [facility] HGB 13.3 12.0 - 16.0 g/dL [facility] HCT 38.9 36.0 - 46.0 % [facility] PLT 206 150 - 450 K/uL [facility] MCV 91.5 80.0 - 100.0 fL [facility] MCH 31.3(H) 27.0 - 31.0 pg [facility] MCHC 34.2 32.0 - 36.0 g/dL [facility] RDW 12.3 11.5 - 14.5 % [facility] MPV 10.2 8.4 - 12.0 fL [facility] NRBC 0.00 0.00 /100 WBCs [facility] ABSOLUTE NRBC 0.00 0.00 K/uL [facility] DIFF METHOD Auto [facility] NEUTS 51.7 48.0 - 76.0 % [facility] LYMPHS 33.5 18.0 - 41.0 % [facility] MONOS 9.8 4.0 - 11.0 % [facility] EOS 4.1 0.0 - 5.0 % [facility] BASOS 0.7 0.0 - 1.5 % [facility] Granulocytes, immature (%) 0.2 0.0 - 0.9 % [facility] ABSOLUTE NEUTS 3.12 1.92 - 7.60 K/uL [facility] ABSOLUTE LYMPHS 2.02 0.72 - 4.10 K/uL [facility] ABSOLUTE MONOS 0.59 0.16 - 1.10 K/uL [facility] ABSOLUTE EOS 0.25 0.00 - 0.50 K/uL [facility] ABSOLUTE BASOS 0.04 0.00 - 0.15 K/uL [facility] Granulocytes, immature 0.01 0.00 - 0.09 K/uL [facility] Blood 02/12/2025 9:42 AM EDT 02/12/2025 9:52 AM EDT Arpit Valdez PA-C LAB BLOOD BKR ORDERABLES Final Result Performing Organization Address City/[facility]/ZIP Co de Phone Number [address] [address] * NT-proBNP (02/12/2025 9:42 AM EDT) NT-PROBNP 96 0 - 450 pg/mL [facility] Blood 02/12/2025 9:42 AM EDT 02/12/2025 9:52 AM EDT Arpit Valdez PA-C LAB BLOOD BKR ORDERABLES Final Result Performing Organization Address City/[facility]/ZIP Co de Phone Number [address] [address] * Lipase (02/12/2025 9:42 AM EDT) LIPASE 41 16 - 63 U/L [facility] Blood 02/12/2025 9:42 AM EDT 02/12/2025 9:52 AM EDT Arpit Valdez PA-C LAB BLOOD BKR ORDERABLES Final Result Performing Organization Address [facility] Co de Phone Number [address] [address] * (ABNORMAL) Basic metabolic panel (02/12/2025 9:42 AM EDT) [facility] SODIUM 141 133 - 146 mmol/L [facility] CHLORIDE 104 96 - 108 mmol/L [facility] POTASSIUM 3.5 3.3 - 5.1 mmol/L [facility] CO2 26 21 - 35 mmol/L [facility] BUN 21(H) 6 - 19 mg/dL [facility] CREATININE 0.70 0.5 - 1.5 mg/dL [facility] GLUCOSE 111(H) 70 - 99 mg/dL [facility] CALCIUM 9.6 8.4 - 10.3 mg/dL [facility] EGFR 86 >59 mL/min/1.7 3m2 [facility] Comment:Estimated glomerular filtration rate calculated using the CKD-EPI refit equation. ANION GAP 15 10 - 20 mmol/L [facility] Blood 02/12/2025 9:42 AM EDT 02/12/2025 9:52 AM EDT Arpit Valdez PA-C LAB BLOOD BKR ORDERABLES Final Result Performing Organization Address [facility]/ZIP Co de Phone Number [address] [address] * ECG 12-LEAD (02/12/2025 9:06 AM EDT) Ventricular Rate EKG/MIN 66 BPM [facility] Atrial Rate 66 BPM [facility] UT Interval 190 ms [facility] QRS Duration 80 ms [facility] QT Interval 392 ms [facility] QTC Interval 410 ms [facility] P [place] 72 degrees [facility] R Wave [place] -21 degrees [facility] T Wave [place] 75 degrees [facility] 02/12/2025 9:06 AM EDT 02/12/2025 11:46 AM EDT Narrative [facility] - 02/12/2025 11:47 AM EDT Normal sinus rhythm Possible Left atrial enlargement Cannot rule out Anteroseptal infarct , age undetermined Abnormal ECG No previous ECGs available Confirmed by Praful Portillo ([id number]) on 02/12/2025 11:46:57 AM Arpit Valdez PA-C ECG ORDERABLES Final Result [facility] from Last 3 Months Insurance MEDICARE PART A & B Member Subscriber Plan / Payer (Ef fective 2006-Present) Name:Karen Holman Member ID:[id number] Relation to Subscriber:Self Name:Karen Holman Subscriber ID:[id number] Payer ID:[id number] Group ID:Not on file Type:Medicare Address: [facility] [employer] [facility] [employer] [facility] [address] [place] [phone] [facility] MEDICARE SUPPLEMENT MEDICARE PART A & B [employer] MEDICARE SUPPLEMENT MEDICARE PART A & B [employer] MEDICARE SUPPLEMENT MEDICARE PART A & B [facility] MEDICARE SUPPLEMENT MEDICARE PART A & B [employer] MEDICARE SUPPLEMENT MEDICARE PART A & B [employer] MEDICARE SUPPLEMENT MEDICARE PART A & B Member Subscriber Plan / Payer (Ef fective 2006-Present) Name:Karen Holman Member ID:[id number] Relation to Subscriber:Self Name:Karen Holman Subscriber ID:[id number] Payer ID:[id number] Group ID:Not on file Type:Medicare Address: [facility] [employer] [facility] [employer] [facility] [address] [place] [phone] [facility] MEDICARE SUPPLEMENT MEDICARE PART A & B [id number] [place] [address] [employer] MEDIC[employer] SUPPLEMENT MEDICARE PART A & B [id number] [place] [address] [employer] MEDICARE SUPPLEMENT Care Teams Regional Forester Relationship Specialty Start Date End Date Fabienne Villasenor CNP [address] [place] [address] [address] [place] [address] [email or web address] PCP - General Internal Medicine 10/16/18 Additional Source Comments The information contained in this document represents components of the legal health record. It is not the complete legal health record.[facility]
--- OUTSIDE RECORDS SUMMARY | 2025-04-11 12:50 | XMS_ITS | Encounter Summary ---
Author Organization [facility] Address [address] [facility] [address] [place] [address] Phone Care Team Providers Care Glass Technologist Name Role Phone Fabienne Villasenor CNP Primary Care Provider Jasper Fairchild MD Unavailable [phone] Reason for Referral * MRI/CAT Scan - Closed Specialty Diagnoses / Procedures Referred By Contac t Referred To Contact Radiology Diagnoses Mid back pain History of spinal cord compression Procedures MRI Thoracic Spine Lawrence Mc MD Phone: tel: fax: Referral ID Status Reason Start Date Expiration Date Visits Re quested Visits Authorized [id number] Closed 07/16/2021 07/16/2022 1 1 Encounter Details Date Type Department Care Team (Late st Contact Info) Description 07/16/2021 Transcribe Orders Virtual Department [address] [place] [address] Lawrence Mc MD [address] [place] [address] Mid back pain (Primary Dx); History of [...] Description 07/09/2025 1:00 PM EST Office Visit [facility] Internal Medicine 14 [facility] [address] [place] [address] PheFabienne simeon, GLOBAL CHIEF CREATIVE OFFICER 14 [facility] [address] [place] [address] documented as of this encounter Results * [...] prevertebral edema. Focal postsurgical changes at T9- [id number] paraspinal soft tissues. Other Findings: Central disc protrusion at T7-T8 is minimally moreprominent than 2015. Mild central disc protrusion at T8-T9, similar [id number]. Mild bulging disc and prominent bilateral facet arthropathy atT9-T10 contributes to mild spinal canal stenosis, similar to 2015. Minimalbulging disc at T10-T11 and prominent facet arthropathy (note that thepreviously suggested calcified lesion seen 2014 is no longer well seen)contributes to moderate spinal canal stenosis and mild bilateral foraminalstenosis. 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 2.No abnormal cord enhancement. 3.Previously suggested calcified [...] documented as of this encounter Care Teams Glass Technologist Relationship Specialty Start Date End Date Fabienne Villasenor CNP [address] [place] [address] [place] [address] [email or web address] PCP - General Internal Medicine 10/16/18 Jasper Fairchild MD [address] [place] [address] [place] [phone] Insurance Assigned Provider 09/09/23 06/10/24 documented as of this encounter Additional Source Comments The information contained in this document represents components of the legal health record. It is not the complete legal health record.[facility]
--- OUTSIDE RECORDS SUMMARY | 2025-04-11 12:50 | XMS_ITS | Encounter Summary ---
Author Organization [facility] Address [address] [place] [address] [place] [address] Phone Care Team Providers Care Animal Husbandry Professor Name Role Phone Fabienne Villasenor CNP Primary Care Provider Jasper Fairchild MD Unavailable [phone] Encounter Details Date Type Department Care Team (Late Contact Info) Description 04/01/2020 Procedure Pass [facility], [address] [address] Social History Tobacco Use Types Packs/Day Years Used Date Smoking Tobacco: Former Cigarettes 1 24 06 309 1977 Smokeless Tobacco: Never Alcohol Use Standard [...] Description 07/09/2025 1:00 PM EST Office Visit [facility] Internal Medicine 14 [facility] [address] [place], [place] [phone] Fabienne Villasenor CNP 14 [facility] [address] [place] [address] documented as of this encounter Visit Diagnoses [...] documented as of this encounter Care Teams Animal Husbandry Professor Relationship Specialty Start Date End Date Fabienne Villasenor CNP 14 [facility] [address] [place] [address] [email or web address] PCP - General Internal Medicine 10/16/18 Jasper Fairchild MD 14 [facility] [address] [place] [address] [email or web address] Insurance Assigned Provider 09/09/23 06/10/24 documented as of this encounter Additional Source Comments The information contained in this document represents components of the legal health record. It is not the complete legal health record.[facility]
--- OUTSIDE RECORDS SUMMARY | 2025-04-11 12:50 | XMS_ITS | Encounter Summary ---
Author Organization [facility] Address [address] [place] [address] Phone Care Team Providers Care Merchandise Associate Name Role Phone Fabienne Villasenor CNP Primary Care Provider Jasper Fairchild MD Unavailable [phone] Encounter Details Date Type Department Care Team (Latest Contact Info) Description 02/25/2022 Transcribe Orders Virtual Department [address] [place] [address] Renato Nation MD [address] [place] [address], [address] [place], [place] [phone] [email or web address] Ataxia (Primary Dx); Numbness Social History Tobacco Use Types Packs/Day Years Used Date Smoking Tobacco: Former Cigarettes 1 24 06 089 - 3298 Smokeless Tobacco: Never Alcohol Use Standard Drinks/Week [...] 07/09/2025 1:00 PM EST Office Visit [facility] Internal Medicine [address] [phone] Fabienne Villasenor CNP [address] [place] [address] [place] [address] [email or web address] documented as of this encounter Visit Diagnoses [...] documented as of this encounter Care Teams Merchandise Associate Relationship Specialty Start Date End Date Fabienne Villasenor, ANTONIO [address] [place] [address] [place] [address] [email or web address] PCP - General Internal Medicine 10/16/18 Jasper Fairchild MD [address] [place] [address] [place] [phone] [email or web address] Insurance Assigned Provider 09/09/23 06/10/24 documented as of this encounter Additional Source Comments The information contained in this document represents components of the legal health record. It is not the complete legal health record.[facility]
--- OUTSIDE RECORDS SUMMARY | 2025-04-11 12:50 | XMS_ITS | Encounter Summary ---
Author Organization [facility] Address [address] [place] [address] [place] [address] Phone Care Team Providers Care Pairer Substandard Name Role Phone Fabienne Villasenor CNP Primary Care Provider Jasper Fairchild MD Unavailable [phone] Encounter Details Date Type Department Care Team (Late Contact Info) Description 12/09/2021 Procedure Pass [facility], [address] [address] Social History Tobacco Use Types Packs/Day Years Used Date Smoking Tobacco: Former Cigarettes 1 24 06 499 1977 Smokeless Tobacco: Never Alcohol Use Standard [...] Description 07/09/2025 1:00 PM EST Office Visit [facility] Internal Medicine 14 [facility] [address] [place], [place] [phone] Fabienne Villasenor CNP 14 [facility] [address] [place], [place] [id number] documented as of this encounter Visit Diagnoses [...] documented as of this encounter Care Teams Pairer Substandard Relationship Specialty Start Date End Date Fabienne Villasenor CNP [address] [place] [address] [place] [address] [email or web address] PCP - General Internal Medicine 10/16/18 Jasper Fairchild MD [address] [place] [address] [place] [address] Insurance Assigned Provider 09/09/23 06/10/24 documented as of this encounter Additional Source Comments The information contained in this document represents components of the legal health record. It is not the complete legal health record.[facility]
--- OUTSIDE RECORDS SUMMARY | 2025-04-11 12:50 | XMS_ITS | Encounter Summary ---
Author Organization [facility] Address [address] [place] [address] [place] [address] Phone Care Team Providers Care Veneer Puller Name Role Phone Fabienne Villasenor CNP Primary Care Provider Jasper Fairchild MD Unavailable [phone] Encounter Details Date Type Department Care Team (Late Contact Info) Description 08/04/2021 Ancillary Orders [facility],Outside Imaging 30 [place] [address] System, Provider Not In, [place] [address] Social History Tobacco Use Types Packs/Day Years Used Date Smoking Tobacco: Former Cigarettes 1 20 1 979 - 8884 Smokeless Tobacco: Never Alcohol Use Standard Drinks/Week [...] Description 07/09/2025 1:00 PM EST Office Visit [facility] Internal Medicine 14 [facility] [address] [place], [place] [phone] Fabienne Villasenor CNP 14 [facility] [address] [place] [address] [email or web address] documented as of this encounter Results * [...] documented as of this encounter Care Teams Veneer Puller Relationship Specialty Start Date End Date Fabienne Villasenor CNP [address] [place] [address] [place] [address] [email or web address] PCP - General Internal Medicine 10/16/18 Jasper Fairchild MD [address] [place] [address] [place] [address] [email or web address] Insurance Assigned Provider 09/09/23 06/10/24 documented as of this encounter Additional Source Comments The information contained in this document represents components of the legal health record. It is not the complete legal health record.[facility]
--- OUTSIDE RECORDS SUMMARY | 2025-04-11 12:50 | XMS_ITS | Clinical Summary ---
Author Organization [facility] Address [address] [place] [address] Care Team Providers Care Systems Analyst Developer Name Role Phone Jasper Fairchild MD Primary Care Provider [phone] Surgical History Surgery Date Site/Laterality Comments LUMBAR [...] age to complete this topic Care Teams Systems Analyst Developer Relationship Specialty Start Date End Date Jasper Fairchild MD 14 [facility] [address] [place] [address] PCP - General Internal Medicine 02/25/20
--- OUTSIDE RECORDS SUMMARY | 2025-04-11 12:50 | XMS_ITS | Encounter Summary ---
Author Organization [facility] Address [address] [facility] [address] [place] [address] Phone Care Team Providers Care Chore Tender Name Role Phone Fabienne Villasenor CNP Primary Care Provider Jasper Fairchild MD Unavailable [phone] Reason for Referral * MRI/CAT Scan - Closed Specialty Diagnoses / Procedures Referred By Contac t Referred To Contact Radiology Diagnoses Low back pain, unspecified back pain laterality, unspecified chronicity, unspecified whether sciatica present Procedures MRI Lumbar Spine Lawrence Mc MD Phone: tel: fax: Referral ID Status Reason Start Date Expiration Date Visits Re quested Visits Authorized [id number] Closed 08/13/2019 08/12/2020 1 1 Encounter Details Date Type Department Care Team (Late st Contact Info) Description 08/13/2019 Transcribe Orders Virtual Department 30 [place] [address] Lawrence Mc MD 10 [facility] [address] [place] [address] Low back pain, unspecified back pain laterality, [...] Description 07/09/2025 1:00 PM EST Office Visit [facility] [place] Internal Medicine 14 [facility] [address] [place] [address] Fabienne Villasenor, MAT WEAVER 14 [facility] [address] [place] [address] [email or web address] documented as of this encounter Results * [...] documented as of this encounter Care Teams Chore Tender Relationship Specialty Start Date End Date Fabienne Villasenor CNP 14 [facility] [address] [place] [address] [email or web address] PCP - General Internal Medicine 10/16/18 Jasper Fairchild MD 14 [facility] [address] [place] [address] [email or web address] Insurance Assigned Provider 09/09/23 06/10/24 documented as of this encounter Additional Source Comments The information contained in this document represents components of the legal health record. It is not the complete legal health record.[facility]
--- OUTSIDE RECORDS SUMMARY | 2025-04-11 12:50 | XMS_ITS | Encounter Summary ---
Author Organization [facility] Address [address] [place] [address] [place] [address] Phone Care Team Providers Care Plant Changer Name Role Phone Fabienne Villasenor CNP Primary Care Provider Jasper Fairchild MD Unavailable [phone] Encounter Details Date Type Department Care Team (Late Contact Info) Description 12/28/2021 Procedure Pass [facility], Ct Scan - [facility] 30 [place] [address] Social History Tobacco Use Types Packs/Day Years Used Date Smoking Tobacco: Former Cigarettes 1 24 06 269 1977 Smokeless Tobacco: Never Alcohol Use Standard [...] 6:27 AM EDT Camille Bedoya RN * [place] Suicide Severity Rating Scale (Screener/Recent Self-Report) Question [...] Description 07/09/2025 1:00 PM EST Office Visit [facility] Internal Medicine 14 [facility] [address] [place] [address] Fabienne Villasenor CNP 14 [facility] [address] [place] [address] [email or web address] documented as of this encounter Visit Diagnoses [...] documented as of this encounter Care Teams Plant Changer Relationship Specialty Start Date End Date Fabienne Villasenor CNP 14 [facility] [address] [place] [address] [email or web address] PCP - General Internal Medicine 10/16/18 Jasper Fairchild MD 14 [facility] [address] [place] [address] [email or web address] Insurance Assigned Provider 09/09/23 06/10/24 documented as of this encounter Additional Source Comments The information contained in this document represents components of the legal health record. It is not the complete legal health record.[facility]
--- OUTSIDE RECORDS SUMMARY | 2025-04-11 12:50 | XMS_ITS | Encounter Summary ---
Author Organization [facility] Address [address] [place] [address] Phone Care Team Providers Care Independent Crop Consultant Name Role Phone Fabienne Villasenor CNP Primary Care Provider Jasper Fairchild MD Unavailable [phone] Encounter Details Date Type Department Care Team (Late Contact Info) Description 07/18/2019 Procedure Pass [facility], [address] [address] Social History Tobacco Use Types Packs/Day Years [...] [facility] Internal Medicine 14 [facility] [address] [place], [place] [phone] Fabienne Villasenor, ANTONIO 14 [facility] [address] [place] [address] documented as of this encounter Visit Diagnoses [...] documented as of this encounter Care Teams Independent Crop Consultant Relationship Specialty Start Date End Date Fabienne Villasenor CNP 14 [facility] [address] [place] [address] [email or web address] PCP - General Internal Medicine 10/16/18 Jasper Fairchild MD 14 [facility] [address] [place] [address] [email or web address] Insurance Assigned Provider 09/09/23 06/10/24 documented as of this encounter Additional Source Comments The information contained in this document represents components of the legal health record. It is not the complete legal health record.[facility]
--- OUTSIDE RECORDS SUMMARY | 2025-04-11 12:50 | XMS_ITS | Encounter Summary ---
Author Organization [facility] Address [address] [place] [address] Phone Care Team Providers Care Diversity Specialist Name Role Phone Fabienne Villasenor CNP Primary Care Provider Jasper Fairchild MD Unavailable [phone] Encounter Details Date Type Department Care Team ([facility] Contact Info) Description 04/29/2019 Procedure Pass [facility], [facility] 30 [place] [address] Social History Tobacco Use Types Packs/Day Years [...] Upcoming Encounters Date Type Department Care Team ([facility] Contact Info) Description 07/09/2025 1:00 PM EST Office Visit [facility] [place] Internal Medicine 14 [facility] [address] [place] [address] Fabienne Villasenor CNP 14 [facility] [address] [place] [address] [email or web address] documented as of this [...] documented as of this encounter Care Teams Diversity Specialist Relationship Specialty Start Date End Date Fabienne Villasenor CNP [address] [address] PCP - General Internal Medicine 10/16/18 Jasper Fairchild MD [address] [address] Insurance Assigned Provider 09/09/23 06/10/24 documented as of this encounter Additional Source Comments The information contained in this document represents components of the legal health record. It is not the complete legal health record.[facility]
--- OUTSIDE RECORDS SUMMARY | 2025-04-11 12:50 | XMS_ITS | Encounter Summary ---
Author Organization [facility] Address [address] [place] [address] Phone Care Team Providers Care Facility Supervisor Name Role Phone Fabienne Villasenor CNP Primary Care Provider Jasper Fairchild MD Unavailable [phone] Encounter Details Date Type Department Care Team ([facility] Contact Info) Description 08/13/2019 Procedure Pass [facility], [address] [address] Social History Tobacco Use Types Packs/Day Years [...] Upcoming Encounters Date Type Department Care Team ([facility] Contact Info) Description 07/09/2025 1:00 PM EST Office Visit [facility] [place] Internal Medicine 14 [facility] [address] [place] [address] Fabienne Villasenor CNP [address] [address] [email or web address] documented as of this encounter Visit Diagnoses [...] documented as of this encounter Care Teams Facility Supervisor Relationship Specialty Start Date End Date Fabienne Villasenor CNP [address] [address] PCP - General Internal Medicine 10/16/18 Jasper Fairchild MD [address] [address] Insurance Assigned Provider 09/09/23 06/10/24 documented as of this encounter Additional Source Comments The information contained in this document represents components of the legal health record. It is not the complete legal health record.[facility]
--- OUTSIDE RECORDS SUMMARY | 2025-04-11 12:50 | XMS_ITS | Encounter Summary ---
Author Organization [facility] Address [address] [place] [address] Phone Care Team Providers Care Master Craftsman Name Role Phone Fabienne Villasenor CNP Primary Care Provider Jasper Fairchild MD Unavailable [phone] Encounter Details Date Type Department Care Team (Late Contact Info) Description 07/18/2019 Procedure Pass [facility], [address] [address] Social History Tobacco Use Types Packs/Day Years [...] 07/09/2025 1:00 PM EST Office Visit [facility] Internal Medicine 14 [facility] [address] [place], [place] [phone] Fabienne Villasenor, ANTONIO 14 [facility] [address] [place] [address] documented as of this encounter Visit Diagnoses [...] documented as of this encounter Care Teams Master Craftsman Relationship Specialty Start Date End Date Fabienne Villasenor CNP 14 [facility] [address] [place] [address] [email or web address] PCP - General Internal Medicine 10/16/18 Jasper Fairchild MD 14 [facility] [address] [place] [address] [email or web address] Insurance Assigned Provider 09/09/23 06/10/24 documented as of this encounter Additional Source Comments The information contained in this document represents components of the legal health record. It is not the complete legal health record.[facility]
--- OUTSIDE RECORDS SUMMARY | 2025-04-11 12:51 | XMS_ITS | Encounter Summary ---
Author Organization [facility] Address [address] [place] [address] [place] [address] Phone Care Team Providers Care Job Compositor Name Role Phone Fabienne Villasenor CNP Primary Care Provider Jasper Fairchild MD Unavailable [phone] Encounter Details Date Type Department Care Team (Late Contact Info) Description 08/16/2019 Ancillary Orders [facility],Outside Imaging 30 [place] [address] System, Provider Not In, [place] [address] Social History Tobacco Use Types Packs/Day Years [...] Visit [facility] Internal Medicine 14 [facility] [address] [place], [place] [phone] Fabienne Villasenor CNP 14 [facility] [address] [place] [address] [phone] (work) [email or web address] documented as of this encounter Results * [...] documented as of this encounter Care Teams Job Compositor Relationship Specialty Start Date End Date Fabienne Villasenor CNP [address] [place] [address] [place] [address] [email or web address] PCP - General Internal Medicine 10/16/18 Jasper Fairchild MD [address] [place] [address] [place] [phone] Insurance Assigned Provider 09/09/23 06/10/24 documented as of this encounter Additional Source Comments The information contained in this document represents components of the legal health record. It is not the complete legal health record.[facility]
== END 2025-04-11 12:16 | disposition home or self-care (01) ==
LOC: HO.HNS 10:49
PROVIDERS: Visit Provider Physician Assistant
DX: M48.061 Spinal stenosis, lumbar region without neurogenic claudication (principal)
CPT/HCPCS: 99213

== ENCOUNTER → 2025-04-11 10:49 | Outpatient (BNVA) | payer MEDICARE, OTHER, SELFPAY | PROVIDERS: Visit Provider Physician Assistant | DX: M48.061 Spinal stenosis, lumbar region without neurogenic claudication (principal) | CPT/HCPCS: 99212 ==